=== PATIENT | female | born 1965 | race Caucasian/White ===

== ENCOUNTER 2017-04-12 07:42 | Day surgery (SDC) | payer OTHER ==
[~2017-04-12 07:42] MED LIST: BACT800T5 PO; HYDR-3533 PO; PRED-503 PO; RANI150T PO; SULF500T3 PO; ULTR50TA5 PO; VENTAER INH
[2017-04-12 10:01] VITALS: BP 146/76; PULSE 61; RESP 16; TEMP 97.6; O2SAT 100
[2017-04-12 10:50] VITALS: BP 147/99; PULSE 83; RESP 16; RESP 18; TEMP 97.6; O2SAT 94
--- NOTE | 2017-04-12 10:50 | RADRPT ---
EXAM DATE/TIME: 04/12/2017 09:54 [facility] COMPARISON: CHEST EXPIRATION ONLY, April 12, 2017, 10:28. INDICATIONS : Left pleural effusion. MEDICAL HISTORY : Rheumatoid arthritis. Asthma. COPD. Carpal tunnel syndrome. Fibromyalgia. Plantar fasciitis. Neurop athy. SURGICAL HISTORY : Tonsillectomy. Appendectomy. Breast biopsy, right. Uterine biopsy. ENCOUNTER: Initial ACUITY: 2 weeks PAIN SCORE: 3/10 LOCATION: Left chest FLUID: Total volume of 1400 cc of cloudy, yellow fluid was removed. Fluid was sent to lab for ordered studies. TECHNIQUE: 1. Ultrasound guidance for thoracentesis. 2. Thoracentesis. The risks, benefits, and alternatives to ultrasound guided thoracentesis were explained to the patien t in lay simple terms, including the risk of bleeding and infection. Written and verbal informed con sent was obtained. Appropriate area for thoracentesis was marked under ultrasound guidance with the patient in the uprig ht position. Overlying skin was prepped and draped in the usual sterile fashion and with local anest hetic, a dermatotomy was made with an 11 blade scalpel. A 6 Irish thoracentesis catheter was placed in the pleural space and fluid was removed. Catheter was then removed and a sterile dressing applie d. There were no immediate complications. The patient tolerated the procedure well and the left the ultrasound suite in stable condition. Chest radiograph is to be obtained. CONCLUSION: Uncomplicated ultrasound guided thoracentesis. Oseas Puente MD on April 12, 2017 at 10:48 Board Certified Radiologist. This report was verified electronically.
[2017-04-12] MEDS ORDERED: LIDOCAINE HCL 1% 20 ML VIAL ONE (11:03)
--- NOTE | 2017-04-12 11:04 | RADRPT ---
EXAM DATE/TIME: 04/12/2017 10:28 [facility] COMPARISON: No previous studies available for comparison. INDICATIONS : Status post thoracentesis. Left pleural effusion. MEDICAL HISTORY : None. SURGICAL HISTORY : None. ENCOUNTER: Initial ACUITY: 1 day PAIN SCORE: 10/10 LOCATION: Left chest FINDINGS: Upright portable expiratory view of the chest demonstrates no pneumothorax following recent left thor acentesis. There is minimal blunting of the left costophrenic sulcus with atelectasis the left lung b ase. Right lung is clear. CONCLUSION: No pneumothorax following recent left thoracentesis. There is minimal atelectasis remaining in the le ft base with possible trace pleural fluid remaining. Km Ramirez MD on April 12, 2017 at 11:01 Board Certified Radiologist. This report was verified electronically.
[2017-04-12 11:15] VITALS: BP 136/72; PULSE 83; RESP 16; O2SAT 94
[2017-04-12] MEDS ORDERED: traMADol HCL 50 MG TAB PO ONE (11:15)
[2017-04-12 12:00] LABS: GLUCOSE,PLEURAL FLUID LESS THAN 1 MG/DL
[2017-04-12 12:07] LABS: PLEURAL FLUID LYMPHS 48 %
[2017-04-12 12:09] LABS: TOTAL PROTEIN,PLEURAL FLUID 5.4 GM/DL
[2017-05-13] MEDS ORDERED: CETI10CA3 PO (11:23)
[2017-05-13] MEDS ORDERED: ACET-822 PO (11:23)
[2017-05-13] MEDS ORDERED: DULE100A INH (11:23)
[2017-05-13] MEDS ORDERED: IBUP800T23 PO (11:23)
== END 2017-04-12 11:40 | disposition home or self-care (01) ==
LOC: HRAD 07:42 → HRIP 07:52 → HRAD 11:40
PROVIDERS: ATTEND Family Medicine
DX: J90 Pleural effusion, not elsewhere classified (principal); M06.9 Rheumatoid arthritis, unspecified; J44.9 Chronic obstructive pulmonary disease, unspecified; G56.00 Carpal tunnel syndrome, unspecified upper limb; M79.7 Fibromyalgia; M72.2 Plantar fascial fibromatosis; G62.9 Polyneuropathy, unspecified
CPT/HCPCS: 32555; 71010; 82150; 82945; 83615; 83986; 84157; 87015; 87070; 87102; 87116; 87205; 87206; 89051; C1729

== ENCOUNTER → 2017-05-13 | Outpatient (CLI) | payer OTHER ==
[~2017-05-13] MED LIST changes: +ACET-822 PO; +CETI10CA3 PO; +DULE100A INH; +IBUP800T23 PO
[2017-05-13 12:14] LABS: AUTOMATED NEUTROPHIL # 6.4 TH/MM3 (1.8-7.7); BASOPHIL # 0.1 TH/MM3 (0-0.2); BASOPHIL % 0.7 % (0.0-2.0); EOSINOPHIL # 0.5 TH/MM3 (0-0.4); HEMATOCRIT 39.5 % (35.0-46.0); HEMO FLAGS DIFF FINAL; LYMPH % 27.1 % (9.0-44.0); LYMPHOCYTE # 2.8 TH/MM3 (1.0-4.8); MEAN CELL VOLUME 88.7 FL (80.0-100.0); MEAN CORPUSCULAR HEMOGLOBIN 29.3 PG (27.0-34.0); MONO % 5.2 % (0.0-8.0); PLATELET COUNT 414 TH/MM3 (150-450); RED BLOOD COUNT 4.45 MIL/MM3 (4.00-5.30); RED CELL DISTRIBUTION WIDTH 13.8 % (11.6-17.2); WHITE BLOOD COUNT 10.3 TH/MM3 (4.0-11.0)
[2017-05-13 12:19] LABS: GLUCOSE,URINE NEG (NEG); KETONE, URINE NEG (NEG); NITRITE,URINE NEG (NEG); PH, URINE 5.5 (5.0-8.5)
[2017-05-13 12:21] LABS: CHLORIDE 107 MEQ/L (98-107); POTASSIUM 4.5 MEQ/L (3.5-5.1); SODIUM (NA) 139 MEQ/L (136-145)
[2017-05-13 12:24] LABS: ANION GAP 6 MEQ/L (5-15); BICARBONATE 26.2 MEQ/L (21.0-32.0); BLOOD UREA NITROGEN 14 MG/DL (7-18)
[2017-05-13 12:27] LABS: ALT (GPT) 26 U/L (10-53); AST (GOT) 12 U/L (15-37)
[2017-05-13 12:28] LABS: GLOMERULAR FILTRATION RATE 75 ML/MIN (>89)
[2017-05-13 12:29] LABS: TOTAL BILIRUBIN ADULT 0.3 MG/DL (0.2-1.0)
[2017-05-13 12:30] LABS: ALKALINE PHOSPHATASE 64 U/L (45-117)
[2017-05-13 12:40] LABS: BLOOD, URINE TRACE (NEG)
[2017-05-13 12:43] LABS: METHOD OF COLLECTION CLEAN CATCH
[2017-05-13 12:44] LABS: URINE COLOR STRAW (YELLW/STRAW)
[2017-05-13 12:45] LABS: COMMENT (UR) CULT NOT INDICATED; CULTURE IF INDICATED CULT NOT INDICATED; SQUAMOUS EPITHELIAL CELL URINE 0-3 /hpf (0-5)
== END ==
LOC: PHPRE 10:50
PROVIDERS: ATTEND Obstetrics & Gynecology
DX: N92.0 Excessive and frequent menstruation with regular cycle (principal); N94.19 Other specified dyspareunia; N95.8 Other specified menopausal and perimenopausal disorders; N81.6 Rectocele; N81.5 Vaginal enterocele; N81.11 Cystocele, midline; N39.3 Stress incontinence (female) (male); Z01.812 Encounter for preprocedural laboratory examination
CPT/HCPCS: 36415; 80053; 81001; 85025; 86850; 86900; 86901; 86920

== ENCOUNTER 2017-06-12 11:24 | Day surgery (SDC) | payer OTHER ==
[~2017-06-12 11:24] MED LIST changes: -BACT800T5 PO; -HYDR-3533 PO; -PRED-503 PO; -SULF500T3 PO; -ULTR50TA5 PO
[2017-06-12 13:00] VITALS: BP 117/80; PULSE 89; RESP 20; TEMP 98.7; O2SAT 100
[2017-06-12 13:40] VITALS: BP 116/76; PULSE 82; RESP 14; TEMP 97.2; O2SAT 98
--- NOTE | 2017-06-12 13:56 | RADRPT ---
EXAM DATE/TIME: 06/12/2017 13:28 [facility] COMPARISON: CHEST EXPIRATION ONLY, April 12, 2017, 10:28. INDICATIONS : Post left thoracentesis. MEDICAL HISTORY : None. SURGICAL HISTORY : None. ENCOUNTER: Initial ACUITY: 1 day PAIN SCORE: 0/10 LOCATION: Left chest FINDINGS: Expiratory view of the chest demonstrates no evidence of left pneumothorax. There has been a decreas e in the amount of opacity at the left lower chest with small residual meniscal interface.. The righ t lung is clear print heart is normal size. CONCLUSION: No evidence of pneumothorax status post thoracentesis. Jeyson Hernandez MD on June 12, 2017 at 13:38 Board Certified Radiologist. This report was verified electronically.
[2017-06-12 14:00] VITALS: BP 104/70; PULSE 78; RESP 16; O2SAT 98
[2017-06-12] MEDS ORDERED: LIDOCAINE HCL 1% 20 ML VIAL ONE (14:05)
--- NOTE | 2017-06-12 14:07 | RADRPT ---
EXAM DATE/TIME: 06/12/2017 12:59 [facility] COMPARISON: EXTERNAL COMPARISON: US GUIDED THORACENTESIS LEFT, April 12, 2017, 9:54. [facility], XR CHEST PA & LAT, May 14 2017, CT THORAX, W & W/O CONTRAST, April 10, 2017. INDICATIONS : Left pleural effusion. MEDICAL HISTORY : Asthma. Rheumatiod arthritis. Bursitis, left shoulder. MRSA, back wound 2014. Uterine prolapse. Pleur al effusion. SURGICAL HISTORY : Tonsillectomy. Appendectomy. Carpal tunnel release, right wrist. Dilation and curettage. Thoracentes is. ENCOUNTER: Subsequent ACUITY: 2 months PAIN SCORE: 0/10 LOCATION: Left chest FLUID: Total volume of 500 cc of cloudy, yellow fluid was removed. Fluid was sent to lab for ordered studies. TECHNIQUE: 1. Ultrasound guidance for thoracentesis. 2. Thoracentesis. The risks, benefits, and alternatives to ultrasound guided thoracentesis were explained to the patien t in lay simple terms, including the risk of bleeding and infection. Written and verbal informed con sent was obtained. Appropriate area for thoracentesis was marked under ultrasound guidance with the patient in the uprig ht position. Overlying skin was prepped and draped in the usual sterile fashion and with local anest hetic, a dermatotomy was made with an 11 blade scalpel. A 6 Syriac thoracentesis catheter was placed in the pleural space and fluid was removed. Catheter was then removed and a sterile dressing applie d. There were no immediate complications. The patient tolerated the procedure well and the left the ultrasound suite in stable condition. Chest radiograph is to be obtained. CONCLUSION: Uncomplicated ultrasound guided thoracentesis. Oseas Puente MD on June 12, 2017 at 14:06 Board Certified Radiologist. This report was verified electronically.
[2017-06-12 16:17] LABS: TOTAL PROTEIN,PLEURAL FLUID 5.1 GM/DL
[2017-06-12 17:59] LABS: PLEURAL FLUID LYMPHS 33 %; PLEURAL FLUID MONOS 26 %; PLEURAL FLUID POLYS (SEGS) 41 %
[2017-06-12 18:28] LABS: PLEURAL FLUID RBC 530 /MM3 (0-0); PLEURAL FLUID WBC 1208 /MM3 (0-10)
--- NOTE | 2017-06-13 09:33 | MH ---
cc: Shar CARRERO M.D., JAMES E. MD DATE OF ADMISSION: 06/12/2017 DATE OF 1965 REASON FOR ADMISSION This patient is coming in for thoracentesis. CHIEF COMPLAINT Shortness of breath and recurrent pleural effusion. HISTORY OF PRESENT ILLNESS This is a 52-year-old white female who has had a history of shortness of breath, orthopnea and chest tightness who was admitted to the hospital 2 months ago with respiratory insufficiency and a large left pleural effusion. The patient underwent an ultrasound-guided thoracentesis on April 12, 2017 and over 1200 cc of fluid was drained and the fluid was sent for cytology which was benign and the cultures were negative for bacteria, AFB or fungi. The fluid also showed 9000 WBCs and glucose was low and LDH at 10:51 with a total protein of 5.4 suggesting it to be an exudate. The patient has had rheumatoid arthritis in the past and she denied any history of pneumonia. She did have an occasional cough and brought up whitish mucus. PAST HISTORY Has included history of rheumatoid arthritis. She has had a hysterectomy as well as a splenectomy in the past and a D&C. She had a tonsillectomy in 1971, bilateral hernia repairs in the past and also has had asthma since childhood. The patient has had a previous CAT scan which showed evidence of left upper lobe and right lung nodules. ALLERGIES No drug allergies. HABITS The patient smoked one-pack per day for 30 years and quit. Drinks alcohol rarely. MEDICATIONS LIST 1. Zyrtec 1 tablet daily. 2. Dulera 100/5 2 puffs b.i.d. 3. Ventolin 2 puffs p.r.n. 4. Zantac 150 milligrams b.i.d. FAMILY HISTORY Father had COPD. Mother of cirrhosis of the liver. REVIEW OF SYSTEMS The patient has no fatigue or fever. She has had no cataracts or glaucoma. No vertigo, but has some hoarseness and postnasal drip. She has no urinary frequency or flank pain. She does have a history of asthma, hay fever and reflux as well as abdominal discomfort. No constipation or GI bleed noted. No chest or jaw pains and she has no easy bruising. She has had muscle stiffness and joint pains. No seizures or headaches and no skin rash, no itching. PHYSICAL EXAMINATION GENERAL: This averagely built middle-aged white female who is in no distress. Mild pallor, no icterus or cyanosis or peripheral edema. VITAL SIGNS: Blood pressure 140/80, pulse is 70, respirations 16, temperature 97.2, weight is 158, saturation 99. HEENT: Head normocephalic. Pupils are reactive and equal. Tongue is moist. Nasal mucosa erythematous. Throat is mildly injected. NECK: Supple. No bruits. No thyroid enlargement or lymphadenopathy. CHEST: Equal movements with decreased breath sounds at the bases. Wheezes are scattered bilaterally, prolonged expirations. HEART: The heart sounds are irregular S1-S2. No murmur. ABDOMEN: Abdomen is soft, benign. No masses. EXTREMITIES: Reveal no edema. The reflexes are brisk. There were no gross motor deficits. Cranial nerves grossly intact. RECTAL: Exam is deferred. IMPRESSION 1. Recurrent left pleural effusion. 2. Left basilar atelectasis. 3. History of rheumatoid arthritis. 4. Anxiety. PLAN The patient has been advised to come in for a thoracentesis. Fluid will be sent for cytology, RA factor and CEA level. We will get a followup CT scan to see if there is any change in the nodular size and if there is recurrence of the fluid or change in the size of the nodules a VATS lung biopsy and pleurodesis will be required. I discussed these thoughts with her and will follow the case. Thank you Dr. Flores for this consultation. Km Carrero MD JDIMA/SHENA /10:47 PM /9:29 AM
[2017-06-14 15:59] LABS: AMYLASE BODY FLUID 18 U/L; AMYLASE BODY FLUID TYPE PLEURAL FLUID
== END 2017-06-12 14:30 | disposition home or self-care (01) ==
LOC: HRAD 11:24 → HRIP 11:30 → HRAD 14:30
DX: J90 Pleural effusion, not elsewhere classified (principal); J45.909 Unspecified asthma, uncomplicated; M06.9 Rheumatoid arthritis, unspecified
CPT/HCPCS: 32555; 71010; 82150; 82945; 83615; 83986; 84157; 87015; 87070; 87102; 87116; 87205; 87206; 89051; C1729

== ENCOUNTER → 2017-08-20 | Outpatient (CLI) | payer OTHER ==
[~2017-08-20] MED LIST changes: +ALPR.25 PO; +IBUP1TAB7 PO; -IBUP800T23 PO
[2017-08-20 09:29] LABS: AUTOMATED NEUTROPHIL # 6.2 TH/MM3 (1.8-7.7); BASOPHIL # 0.1 TH/MM3 (0-0.2); BASOPHIL % 0.8 % (0.0-2.0); EOSINOPHIL # 0.1 TH/MM3 (0-0.4); EOSINOPHIL % 1.4 % (0.0-4.0); HEMATOCRIT 38.2 % (35.0-46.0); HEMOGLOBIN 12.6 GM/DL (11.6-15.3); LYMPH % 28.9 % (9.0-44.0); MEAN CORPUSCULAR HEMOGLOBIN 29.7 PG (27.0-34.0); MEAN PLATELET VOLUME 7.1 FL (7.0-11.0); MONO % 8.2 % (0.0-8.0); MONOCYTE # 0.8 TH/MM3 (0-0.9); NEUT % 60.7 % (16.0-70.0); PLATELET COUNT 479 TH/MM3 (150-450); RED BLOOD COUNT 4.24 MIL/MM3 (4.00-5.30); RED CELL DISTRIBUTION WIDTH 14.8 % (11.6-17.2); WHITE BLOOD COUNT 10.2 TH/MM3 (4.0-11.0)
[2017-08-20 09:59] LABS: BILIRUBIN, URINE NEG (NEG); BLOOD, URINE NEG (NEG); GLUCOSE,URINE NEG (NEG); KETONE, URINE NEG (NEG); NITRITE,URINE NEG (NEG); URINE LEUKOCYTE ESTERASE NEG (NEG)
[2017-08-20 10:01] LABS: URINE COLOR STRAW (YELLW/STRAW)
[2017-08-20 10:05] LABS: AMORPHOUS SEDIMENT, URINE LARGE; SQUAMOUS EPITHELIAL CELL URINE > 8 /hpf (0-5)
== END ==
LOC: PHPRE 08:38
PROVIDERS: ATTEND Obstetrics & Gynecology
DX: Z01.812 Encounter for preprocedural laboratory examination (principal); N92.0 Excessive and frequent menstruation with regular cycle; N94.19 Other specified dyspareunia; N95.8 Other specified menopausal and perimenopausal disorders; N81.6 Rectocele; N81.5 Vaginal enterocele; N81.11 Cystocele, midline; N39.3 Stress incontinence (female) (male)
CPT/HCPCS: 36415; 81001; 85025; 86850; 86900; 86901; 86920

== ENCOUNTER 2017-08-21 06:11 | Observation (INO) | payer OTHER ==
[~2017-08-21] VITALS: Ht 152.4 cm; Wt 80.0 kg
[~2017-08-21 06:11] MED LIST changes: -ALPR.25 PO
[2017-08-21] MEDS ORDERED: ceFAZolin 2 GM PREMIX 50 ML IV SCH (06:45)
[2017-08-21] MEDS ORDERED: ALPR.25 PO (06:53)
[2017-08-21] MEDS ORDERED: LACTATED RINGER'S 1000 ML INJ 1,000 ML ONE (07:05)
[2017-08-21] MEDS ORDERED: MIDAZOLAM HCL 2 MG/2 ML VIAL ONE (07:08)
[2017-08-21] MEDS ORDERED: HYDROCORTISONE SOD SUCCINATE 100 MG VIAL ONE (07:10)
[2017-08-21] MEDS ORDERED: ESTROGENS CONJUGATED VAG CREA 15 APPL/30 GM TUBE ONE ×2 (07:12→11:53)
[2017-08-21 07:29] LABS: CHLORIDE 107 MEQ/L (98-107); SODIUM (NA) 141 MEQ/L (136-145)
[2017-08-21 07:33] LABS: ALBUMIN 3.2 GM/DL (3.4-5.0); BICARBONATE 25.2 MEQ/L (21.0-32.0); BLOOD UREA NITROGEN 16 MG/DL (7-18); GLUCOSE,RANDOM 80 MG/DL (74-106)
[2017-08-21 07:36] LABS: ALT (GPT) 22 U/L (10-53); AST (GOT) 18 U/L (15-37); CREATININE 0.81 MG/DL (0.50-1.00); GLOMERULAR FILTRATION RATE 75 ML/MIN (>89)
[2017-08-21 07:38] LABS: TOTAL BILIRUBIN ADULT 0.3 MG/DL (0.2-1.0); TOTAL PROTEIN 7.2 GM/DL (6.4-8.2)
[2017-08-21 07:39] LABS: ALKALINE PHOSPHATASE 53 U/L (45-117)
[2017-08-21] MEDS ORDERED: VASOPRESSIN 20 UNITS/ML VIAL (IVTITR) ONE (08:00)
[2017-08-21] MEDS ORDERED: METHYLENE BLUE 10 MG/ML VIAL OTHER ONE (09:18)
[2017-08-21] MEDS ORDERED: ceFAZolin INJ 1,000 MG VIAL IV ONE (11:36)
[2017-08-21 12:13] VITALS: PULSE 107
[2017-08-21] MEDS ORDERED: MORPHINE SULFATE 30 MG/30 ML PCA IV SCH (12:15)
[2017-08-21] MEDS ORDERED: diphenhydrAMINE HCL 25 MG CAP PO PRN (12:15)
[2017-08-21] MEDS ORDERED: LORazepam 0.5 MG TAB PO PRN (12:15)
[2017-08-21] MEDS ORDERED: NALOXONE HCL 0.4 MG/ML AMP IV PUSH PRN (12:15)
[2017-08-21] MEDS ORDERED: *MEPERIDINE 25 MG INJ VIAL PERIprocedural Use ONLY ONE (12:30)
--- NOTE | 2017-08-21 12:44 | HHI.PR ---
Immediate Post Op Note Procedure Date: Aug 21, 2017 Pre Op Diagnosis: (1) Complete uterovaginal prolapse (2) MAXWELL (stress urinary incontinence, female) Post Op Diagnosis: (1) Complete uterovaginal prolapse (2) MAXWELL (stress urinary incontinence, female) Surgeon: Kina Rsoe Fire Hazard Inspector(s): Nikhil Cevallos Procedure: Total vaginal hysterectomy with bilateral salpingo-oophorectomy Placement of transobturator tape (mid-urethral sling) and cystoscopy Bilateral sacrocolpopexy cystocele repair, rectocele repair and perineoplasty Specimen(s) removed: uterus tubes and ovaries Estimated blood loss: 400 cc Anesthesia: General, Other Drains: None IVF Patient to: PACU Date/Time of Procedure: SEE SURGICAL CARE RECORD Kina Rose MD Aug 21, 2017 12:44
[2017-08-21] MEDS ORDERED: MORPHINE SULFATE 2 MG/ML INJ ONE (12:58)
[2017-08-21] MEDS ORDERED: *HYDROmorphone PF 1 MG VIAL PERIprocedural Use ONLY ONE (13:38)
[2017-08-21 14:00] VITALS: PULSE 94
[2017-08-21] MEDS: PCA - TOTAL MG MORPHINE DELIVERED PER SHIFT SCH ×2 (14:00→22:30)
[2017-08-21 14:50] VITALS: BP 101/59; PULSE 99; RESP 16; TEMP 98; O2SAT 99
[2017-08-21] MEDS: LACTATED RINGER'S 1000 ML INJ 1,000 ML IV SCH ×2 (15:07→20:15)
[2017-08-21] MEDS: DOCUSATE SODIUM 100 MG CAP PO SCH ×2 (15:12→21:00)
[2017-08-21 16:05] VITALS: O2SAT 99
[2017-08-21 20:00] VITALS: BP 104/73; PULSE 92; RESP 20; TEMP 99.4; O2SAT 99
[2017-08-21 20:40] VITALS: O2SAT 98
[2017-08-21] MEDS: SODIUM CHLORIDE 0.9% FLUSH 10 ML FLUSH IV FLUSH SCH (21:00)
[2017-08-21] MEDS: KETOROLAC TROMETHAMINE 30 MG/ML (IVP) VIAL IVP PRN (22:28)
[2017-08-22] VITALS: BP 101/57; PULSE 68; RESP 20; TEMP 99.1; O2SAT 100
[2017-08-22] MEDS: LACTATED RINGER'S 1000 ML INJ 1,000 ML IV SCH ×3 (01:21→12:15)
[2017-08-22 04:00] VITALS: BP 103/67; PULSE 77; RESP 20; TEMP 97.9; O2SAT 96
[2017-08-22] MEDS: KETOROLAC TROMETHAMINE 30 MG/ML (IVP) VIAL IVP PRN (04:19)
[2017-08-22] MEDS: PCA - TOTAL MG MORPHINE DELIVERED PER SHIFT SCH (06:00)
[2017-08-22 06:38] LABS: HEMATOCRIT 24.9 % (35.0-46.0); HEMOGLOBIN 8.1 GM/DL (11.6-15.3)
[2017-08-22 07:50] VITALS: BP 106/60; PULSE 86; RESP 20; TEMP 98.6; O2SAT 97
[2017-08-22] MEDS: DOCUSATE SODIUM 100 MG CAP PO SCH (09:09)
[2017-08-22] MEDS: SODIUM CHLORIDE 0.9% FLUSH 10 ML FLUSH IV FLUSH SCH (09:10)
[2017-08-22] MEDS: oxyCODONE/ACETAMINOPHEN 5 MG/325 MG TAB PO PRN ×2 (10:37→14:58)
[2017-08-22 11:50] VITALS: BP 108/60; PULSE 93; RESP 20; TEMP 98.3; O2SAT 97
--- NOTE | 2017-08-22 14:24 | HHI.DS ---
Discharge Summary Admission Date Aug 21, 2017 at 14:34 Discharge Date: Aug 22, 2017 Admitting Diagnosis complete uterovaginal prolapse, menorrhagia, cystocele, rectocele, enterocele and perineocele on replacement of uterus female stress urinary incontinence rheumatoid arthritis (1) Complete uterovaginal prolapse Diagnosis: Principal ICD Codes: N81.3 - Complete uterovaginal prolapse Status: Resolved (2) Urinary retention with incomplete bladder emptying Diagnosis: Secondary ICD Codes: R33.9 - Retention of urine, unspecified Status: Acute Procedures Total vaginal hysterectomy Bilateral salpingo-oophorectomy bilateral sacrocolpopexy Placement of mid-urethral sling, transobturator tape Repair of cystocele, rectocele, perineocele (without graft) Brief History 52 y/o had complete uterovaginal prolapse on presentation. She wanted surgery sooner but had untreated rheumatoid arthritis and had recurring pleural effusion and required time to be cleared for surgery. She had heavy and irregular uterine bleeding, and needed to replace her uterus manually to void or evacuate bowels. The patient wanted to maintain sexual function and so chose vaginal reconstruction procedures, and opted for a vaginal approach including hysterectomy. CBC/BMP: 08/22/17 0601 08/21/17 0705 Significant Findings Laboratory Tests Test 08/21/17 07:05 08/22/17 06:01 Albumin 3.2 GM/DL (3.4-5.0) Estimat Glomerular Filtration Rate 75 ML/MIN (>89) Hemoglobin 8.1 GM/DL (11.6-15.3) Hematocrit 24.9 % (35.0-46.0) PE at Discharge Vital signs are stable. Abdomen is soft. Patient did not bleed through her packing despite multiple vaginal incisions, and there was no significant bleeding after I removed the packing. She is ambulatory with abdomen soft. Hospital Course The patient's surgery took over 4 hours, as anticipated considering the number of different procedures. She had a 400 cc blood loss. A sling was used but graft was not used for rectocele repair because the rectocele was largely reduced with sacrocolpopexy and perineoplasty. The patient did well after surgery and was able to ambulate and tolerate a regular diet. She was voiding normal amounts of urine, but had consistently high residuals by bladder scan, over 300cc. She was offered teaching and intermittent catheterization, but preferred to go home with a in-dwelling Guy catheter. Pt Condition on Discharge: Good Discharge Disposition: Discharge Home Discharge Instructions DIET: Follow Instructions for: As Tolerated, No Restrictions Activities you can perform: Shower Only-No Bath, Pelvic Rest Activities to avoid: Driving for 24 hrs, Lifting/Bending, Weight Bearing, Prolonged Standing, Strenuous Activity, Bathing, Sexual Activity Additional Information The patient already has a post-op appointment for one week post-op. Since she is going home with an in-dwelling Guy, we will call her to offer an additional appointment on Saturday to evaluate for catheter removal. The patient already has post-op meds at home, and has been instructed in activity and how to best avoid constipation. Kina Rose MD Aug 22, 2017 14:24
[2017-08-22 15:50] VITALS: BP 110/59; PULSE 90; RESP 20; TEMP 98.3; O2SAT 94
--- NOTE | 2017-08-23 10:29 | MP ---
cc: DUTCH NG MD SURGERY DATE August 21, 2017 PREOPERATIVE DIAGNOSES 1. Complete uterovaginal prolapse. 2. Stress urinary incontinence. 3. Rectocele, enterocele, cystocele. 4. Menorrhagia. POSTOPERATIVE DIAGNOSES 1. Complete uterovaginal prolapse. 2. Stress urinary incontinence. 3. Rectocele, enterocele, cystocele. 4. Menorrhagia. OPERATION 1. Total vaginal hysterectomy, bilateral salpingo-oophorectomy. 2. Placement in midurethral sling using transobturator tape. 3. Repair of cystocele, rectocele and enterocele without graft. 4. Bilateral sacrocolpopexy extraperitoneal. SURGEON MD Rose ANESTHESIA General endotracheal. COMPLICATIONS None. ESTIMATED BLOOD LOSS 400 cc. URINE OUTPUT 900. LENGTH OF SURGERY Approximately 4-1/2 hours. INDICATIONS This 52-year-old 5, para 5 came with complete uterovaginal prolapse which has tolerated for some months. She has to replace her uterus in order to void or evacuate her bowels and is extremely uncomfortable. When she does replace her uterus she has stress urinary incontinence which is easily illustrated on maneuvers. The patient requests the procedure listed above after a lengthy discussion about the possible use of allograft and the length of surgery. Initially of surgery was postponed because of recurrent pleural effusion, breast biopsy and untreated rheumatoid arthritis. FINDINGS The patient was found to have a normal-sized uterus with complete uterovaginal prolapse and the majority of the bladder being located outside of the body as well as the rectum and some of the small bowel. It was palpable through the defect. The patient's tubes and ovaries were small and had descended somewhat with the prolapse. The patient had very vascular submucosal tissue with pelvic congestion and, even though vasopressin was used, she had pretty steady blood loss. Compression of bleeders was used several times during the case. PROCEDURE The patient was taken to the operating room and placed supine on the operating room table. After general endotracheal anesthetic, she was prepped and draped in low stirrups with SCDs in place. Weighted vaginal speculum was placed in the posterior vault of the vagina thus reducing some of the prolapse. However, after making a circumferential incision around the cervix and pushing the tissues back, dilute Pitressin was used at the incision site. The rectovaginal space was entered sharply and the retractor was replaced for a long retractor. The uterosacral ligaments were identified, clamped and pedicles cut and suture ligatures placed. The cardinal ligaments were then identified, clamped, pedicles cut and suture ligatures placed. Another bite was necessary on each side before reaching the uteroovarian ligament. This was then doubly clamped on each side using a Vicky clamp and a Janee clamp and using a free tie and then a suture ligature. Despite this, hematoma formation was noted on the patient's left side and compression with a sponge stick was applied before it had a chance to extend beyond the pelvis. It was hemostatic and we then continued. The uterus had been from the field and adnexal ligatures placed except that the patient also wanted bilateral salpingo-oophorectomy if possible. The structures were visible. The bowel was protruding from the large vaginal defect and a packing was necessary in order to continue surgery. A Vicky clamp was placed across the left infundibulopelvic ligament and a Janee clamp as well. The adnexa was cut away and a free tie followed by a suture ligature were placed. The same procedure was carried out on the other side. Then, observing the patient's large enterocele, it was determined that the best support and elimination of the large defect would be to tie together the uterosacral ligaments and the cardinal ligaments which met easily in the midline. Of course this left the vaginal apex somewhat pendulous and a sacral colpopexy was done as planned. The sacral colpopexy was done by injecting laterally in the right vaginal sulcus overlying the palpable ischial spine. Minimal blunt dissection was used to palpate the sacrospinous ligament bundle but the patient did again developed easily subperitoneal bruising from gentle dissection. A Fanaticsio device was used to place two ligatures through the sacrospinous bundle using 0 Prolene. They were then tied to the vagina in the right apex using a lili stitch method with good result except that the proximal suture pulled out of the vaginal tissue which was soft. The effect on the right side was good but the left side was still very prolapsed and therefore the same procedure was carried out on the left side taking great care to palpate for the colon and other essential structures and identifying the ischial spine and the sacrospinous bundle with direct visualization. The defects in the sulci were then used with incisions bridging the two in order to take up slack in the apex of the vagina and help eliminate the rectocele. It was closed vertically to pull the sides together so the vagina achieved a conical shape. The vaginal cuff was then closed in running locked fashion. 0 Vicryl was used throughout the case up to this point. A perineocele was going to be required but transobturator tape had yet to be placed. A vertical incision was made over the midportion of the urethra and submucosally was dissected to the pubic rami bilaterally. Stab incisions were made in the groin avoiding the adductor muscles and being parallel to the urethra. A blunt needle device was then used to go from outside the patient to the inside through the vagina and a mesh tape was pulled through the groin incisions bilaterally. Again removing a vertical piece of tissue overlying the mid-urethra and bladder neck allowed vertical closure thus eliminating her cystocele and rectocele without use of graft. Attention was then turned to the perineoplasty and knife was used to make a marc-shaped excision of mucosa and perineal epidermis after injection of the remaining dilute vasopressin. The bulbocavernosus and transverse perinei and muscles and other structures involved in the perineal body which was very attenuated were palpated bilaterally and grasped with Allis clamps and then united in the midline. The epithelium and the mucosa was closed over this incision and at the end of the case the patient's vagina accommodated two fingers loosely as we had discussed prior to surgery. The patient then had packing placed in the vagina with estrogen cream. A Guy catheter had been clamped during the case but was reconnected at the end of the case and clear yellow urine returned. Cystoscopy was performed at that time when the Guy catheter was temporarily removed and there was no defect or perforation seen with urine seen to pass from the ureteral orifices bilaterally. The Guy catheter was replaced after the packing was placed. The patient was awakened and taken to the recovery room breathing on her own. She tolerated the procedure well. Sponge, needle and instrument counts were correct. She received 2 grams of Ancef preoperatively and the dose was repeated at the end of the case. MD GIL Gupta/TRAVIS /9:22 AM /9:41 AM
== END 2017-08-22 17:04 | disposition home or self-care (01) ==
LOC: PHSDC 06:11 → PH3A 14:34
PROVIDERS: ADMIT Obstetrics & Gynecology; ATTEND Obstetrics & Gynecology
DX: N81.3 Complete uterovaginal prolapse (principal); N92.0 Excessive and frequent menstruation with regular cycle; N81.81 Perineocele; N39.3 Stress incontinence (female) (male); R33.9 Retention of urine, unspecified
CPT/HCPCS: 00840; 00860; 36415; 56810; 57288; 58263; 80053; 85014; 85018; 88305; 94150; 96374; 96375; 96376; C1771; G0378; J0690; J1170; J1720; J1885; J2175; J2250; J2270; J7120; 88307

== ENCOUNTER 2018-03-23 21:19 | Observation (INO) ==
--- NOTE | 2018-03-23 22:05 | ED ---
HPI General Chief complaint: Chest Pain Stated complaint: chest pain Time Seen by Provider: 03/23/18 21:57 History of Present Illness HPI narrative: A 53-year-old female who presents for evaluation of chest pain. Symptoms have been intermittent for the past several months. She reports that typically she gets these symptoms approximately 5-6 times per week. She describes it as a sharp/achy substernal pain that radiates into the neck and jaw and arms. Symptoms are typically worse when she is upset or under stress. She does not seem to notice any exertional component in her symptoms. She developed the symptoms this evening when she was sitting on a bench at 6 PM and this is what prompted evaluation. Currently she reports only very mild discomfort. She denies any shortness of breath, abdominal pain, nausea or vomiting, diaphoresis, lower extremity edema, recent travel, recent surgery. She reports a history of rheumatoid arthritis and asthma. She endorses tobacco use. She denies any known history of coronary artery disease personally or in her family. She denies any history of hypertension, hyperlipidemia, diabetes. She has never had a stress test. Her primary care physician is Dr. Flores. No other complaints at this time. Related Data Home Medications Medication Instructions Recorded Confirmed Tylenol Arthritis Pain 650 PO Q12HR PRN 03/24/18 albuterol sulfate [Ventolin HFA] INHALATION 03/24/18 leflunomide 20 mg PO DAILY 03/24/18 03/24/18 Allergies Allergy/AdvReac Type Severity Reaction Status Date / Time cat dander Allergy Severe Shortness Verified 03/23/18 21:44 of Breath tree and shrub pollen Allergy Severe Shortness Verified 03/23/18 21:44 of Breath *MDRO Multi-Drug Resistant AdvReac Unknown Itching Uncoded 03/23/18 21:44 Organism Review of Systems Except as stated in HPI: all other systems reviewed are negative [facility] Medical History Medical History Asthma (Acute) History of hysterectomy (Acute) Family History Family History Other No history of heart disease Social History Social History Substance History: No History of Abuse Second Hand Smoke Exposure: Yes Smoking Status: Current every day smoker Tobacco Type: Cigarettes How Often Do You Have a Drink Containing Alcohol: Monthly or less Procedures Hemaprompt Stool Procedural Steps Taken: specimen placed in appropriate test area, developer placed on specimen and control areas and controls appropriately positive and negative Hemaprompt Stool Result: positive Course Initial Documented Vital Signs Temperature 98.3 F 03/23/18 21:44 Pulse Rate 81 03/23/18 21:44 Respiratory Rate 18 03/23/18 21:44 Blood Pressure 144/85 H 03/23/18 21:44 Pulse Oximetry 97 03/23/18 21:44 Last Documented Vital Signs Temperature 97.9 F 03/24/18 04:00 Pulse Rate 79 03/24/18 04:00 Respiratory Rate 16 03/24/18 04:00 Blood Pressure 141/93 H 03/24/18 04:00 Pulse Oximetry 94 L 03/24/18 04:00 Medical Decision Making BHARAT Attestation BHARAT supervised visit: Yes Attestation: I, Dr. Cardenas, have reviewed the advance practice practitioner's documentation and am in agreement, met with the patient face to face, made the diagnosis, and the medical decision making was done by me. *My assessment and Findings: Patient is a 53-year-old male who presented with atypical chest pain. EKG had nonspecific T-wave inversions and flattening but no acute ST elevations. Her troponin was elevated at 0.25. We spoke with the aromatherapist on-call who recommended the patient be placed on a heparin bolus and admitted to the hospital for her NSTEMI. Additionally she did complain of one episode of bright red blood per rectum approximately a week ago. Rectal exam here was guaiac positive but did not show any gross exam. The aromatherapist in the admitting hospitalist are both aware of this and plan to follow this closely with her new heparin drip. MDM Narrative Medical decision making narrative: The patient was placed on ECG monitoring pulse oximetry. A 12 EKG was obtained. Lab work, chest x-ray has been ordered. The patient was given aspirin. Patient's lab work is been reviewed. Her troponin is 0.25. Discussing with the patient's potential for anticoagulation, she reports that last week she had bright red blood per rectum. Rectal examination today does reveal Hemoccult positive brown stool. Discussed with the on-call [facility] aromatherapist Dr. Llamas who would like heparin to be initiated and she will be happy to consult, npo after midnight, repeat CBC in [address] Mcpherson who is agreeable with admission. Differential Diagnosis Differential Diagnosis: Acute coronary syndrome, aortic dissection, angina, pneumothorax, hemothorax, anxiety Lab Data Result diagrams: 03/24/18 04:41 03/23/18 22:10 Lab Results 03/23/18 03/23/18 03/23/18 Range/Units 22:10 22:10 22:10 WBC 10.0 (4.0-11.0) th/mm3 RBC 4.31 (4.00-5.30) mil/mm3 Hgb 12.2 (11.6-15.3) gm/dL Hct 36.1 (35.0-46.0) % MCV 83.9 (80.0-100.0) fL MCH 28.3 (27.0-34.0) pg MCHC 33.8 (32.0-36.0) % RDW 16.0 (11.6-17.2) % Plt Count 537 H (150-450) th/mm3 MPV 6.9 L (7.0-11.0) fL Neut % (Auto) 73.3 H (16.0-70.0) % Lymph % (Auto) 15.1 (9.0-44.0) % [place] % (Auto) 7.5 (0.0-8.0) % Eos % (Auto) 2.8 (0.0-4.0) % Baso % (Auto) 1.3 (0.0-2.0) % Neut # (Auto) 7.3 (1.8-7.7) th/mm3 Lymph # (Auto) 1.5 (1.0-4.8) th/mm3 [place] # (Auto) 0.8 (0.0-0.9) th/mm3 Eos # (Auto) 0.3 (0.0-0.4) th/mm3 Baso # (Auto) 0.1 (0.0-0.2) th/mm3 WBC Differential . Differential Comment Auto diff final PT 10.5 (9.8-11.6) sec INR 1.0 Ratio APTT 27.9 (24.3-30.1) sec Sodium 140 (136-145) meq/L Potassium 4.8 (3.5-5.1) meq/L Chloride 108 H (98-107) meq/L Carbon Dioxide 27.2 (21.0-32.0) meq/L Anion Gap 5 (5-15) meq/L BUN 12 (7-18) mg/dL Creatinine 1.06 H (0.50-1.00) mg/dL Estimated GFR 54 L (>89) mL/min Random Glucose 101 (74-106) mg/dL Calcium 8.9 (8.5-10.1) mg/dL Total Bilirubin 0.2 (0.2-1.0) mg/dL AST 28 (15-37) U/L ALT 24 (10-53) U/L Alkaline Phosphatase 87 (45-117) U/L Creatine Kinase Total Creatine Kinase (26-192) U/L CK-MM (CK-3) % CK-MB (CK-2) (0.5-3.6) ng/mL CK-MB (CK-2) % CK-BB (CK-1) % CK and CKMB Interp Troponin I 0.25 H (0.02-0.05) ng/mL Total Protein 7.9 (6.4-8.2) g/dL Albumin 3.4 (3.4-5.0) g/dL Lipase 59 L (73-393) U/L 03/23/18 03/23/18 03/24/18 Range/Units 22:10 22:10 04:41 WBC 9.5 (4.0-11.0) th/mm3 RBC 4.27 (4.00-5.30) mil/mm3 Hgb 12.0 (11.6-15.3) gm/dL Hct 36.0 (35.0-46.0) % MCV 84.3 (80.0-100.0) fL MCH 28.1 (27.0-34.0) pg MCHC 33.3 (32.0-36.0) % RDW 15.8 (11.6-17.2) % Plt Count 488 H (150-450) th/mm3 MPV 7.2 (7.0-11.0) fL Neut % (Auto) (16.0-70.0) % Lymph % (Auto) (9.0-44.0) % [place] % (Auto) (0.0-8.0) % Eos % (Auto) (0.0-4.0) % Baso % (Auto) (0.0-2.0) % Neut # (Auto) (1.8-7.7) th/mm3 Lymph # (Auto) (1.0-4.8) th/mm3 [place] # (Auto) (0.0-0.9) th/mm3 Eos # (Auto) (0.0-0.4) th/mm3 Baso # (Auto) (0.0-0.2) th/mm3 WBC Differential Differential Comment PT (9.8-11.6) sec INR Ratio APTT (24.3-30.1) sec Sodium (136-145) meq/L Potassium (3.5-5.1) meq/L Chloride (98-107) meq/L Carbon Dioxide (21.0-32.0) meq/L Anion Gap (5-15) meq/L BUN (7-18) mg/dL Creatinine (0.50-1.00) mg/dL Estimated GFR (>89) mL/min Random Glucose (74-106) mg/dL Calcium (8.5-10.1) mg/dL Total Bilirubin (0.2-1.0) mg/dL AST (15-37) U/L ALT (10-53) U/L Alkaline Phosphatase (45-117) U/L Creatine Kinase Cancelled Total Creatine Kinase 125 (26-192) U/L CK-MM (CK-3) % Cancelled CK-MB (CK-2) 1.9 (0.5-3.6) ng/mL CK-MB (CK-2) % Cancelled CK-BB (CK-1) % Cancelled CK and CKMB Interp Cancelled Troponin I (0.02-0.05) ng/mL Total Protein (6.4-8.2) g/dL Albumin (3.4-5.0) g/dL Lipase (73-393) U/L 03/24/18 03/24/18 Range/Units 04:41 04:41 WBC (4.0-11.0) th/mm3 RBC (4.00-5.30) mil/mm3 Hgb (11.6-15.3) gm/dL Hct (35.0-46.0) % MCV (80.0-100.0) fL MCH (27.0-34.0) pg MCHC (32.0-36.0) % RDW (11.6-17.2) % Plt Count (150-450) th/mm3 MPV (7.0-11.0) fL Neut % (Auto) (16.0-70.0) % Lymph % (Auto) (9.0-44.0) % [place] % (Auto) (0.0-8.0) % Eos % (Auto) (0.0-4.0) % Baso % (Auto) (0.0-2.0) % Neut # (Auto) (1.8-7.7) th/mm3 Lymph # (Auto) (1.0-4.8) th/mm3 [place] # (Auto) (0.0-0.9) th/mm3 Eos # (Auto) (0.0-0.4) th/mm3 Baso # (Auto) (0.0-0.2) th/mm3 WBC Differential Differential Comment PT (9.8-11.6) sec INR Ratio APTT 32.2 H (24.3-30.1) sec Sodium (136-145) meq/L Potassium (3.5-5.1) meq/L Chloride (98-107) meq/L Carbon Dioxide (21.0-32.0) meq/L Anion Gap (5-15) meq/L BUN (7-18) mg/dL Creatinine (0.50-1.00) mg/dL Estimated GFR (>89) mL/min Random Glucose (74-106) mg/dL Calcium (8.5-10.1) mg/dL Total Bilirubin (0.2-1.0) mg/dL AST (15-37) U/L ALT (10-53) U/L Alkaline Phosphatase (45-117) U/L Creatine Kinase Total Creatine Kinase 101 (26-192) U/L CK-MM (CK-3) % CK-MB (CK-2) (0.5-3.6) ng/mL CK-MB (CK-2) % CK-BB (CK-1) % CK and CKMB Interp Troponin I 0.50 H D (0.02-0.05) ng/mL Total Protein (6.4-8.2) g/dL Albumin (3.4-5.0) g/dL Lipase (73-393) U/L Imaging Data Radiologist's impression: Chest X-Ray 03/23/18 22:01 CONCLUSION: Very mild bibasilar atelectasis. Mild pleural and parenchymal scarring versus very small pleural effusion at the left base. Discharge Plan Discharge Disposition Patient Disposition: 30 Still Patient Discharge Condition Condition: Stable Discharge Details Diagnosis: Chest pain, Elevated troponin, Acute non-ST elevation myocardial infarction ( NSTEMI) Physicians Team ED Provider: Nae Cardenas ED Midlevel Provider: Grzegorz Vidal Primary Care Provider: Pepe Flores Attending Provider: Donta Pinon Status ED Status: Left Department Discharge Information Discharge Date/Time: 03/24/18 01:42
[2018-03-23 22:18] LABS: Baso # (Auto) 0.1 th/mm3 (0.0-0.2); Baso % (Auto) 1.3 % (0.0-2.0); Eos # (Auto) 0.3 th/mm3 (0.0-0.4); Eos % (Auto) 2.8 % (0.0-4.0); Hematocrit 36.1 % (35.0-46.0); Hemoglobin 12.2 gm/dL (11.6-15.3); Lymph # (Auto) 1.5 th/mm3 (1.0-4.8); Lymph % (Auto) 15.1 % (9.0-44.0); Mean Corpuscular HGB Conc 33.8 % (32.0-36.0); Mean Corpuscular Hemoglobin 28.3 pg (27.0-34.0); Mean Corpuscular Volume 83.9 fL (80.0-100.0); Mean Platelet Volume 6.9 fL (7.0-11.0); Mono # (Auto) 0.8 th/mm3 (0.0-0.9); Mono % (Auto) 7.5 % (0.0-8.0); Neut # (Auto) 7.3 th/mm3 (1.8-7.7); Neut % (Auto) 73.3 % (16.0-70.0); Platelet Count 537 th/mm3 (150-450); Red Blood Count 4.31 mil/mm3 (4.00-5.30)
--- NOTE | 2018-03-23 22:18 | XR ---
EXAM DATE: 03/23/2018 10:13 PM EDT AGE/SEX: 53 years / Female INDICATIONS: Bilateral chest pains. CLINICAL DATA: This is the patient's initial encounter. Patient reports that signs and symptoms have been present for 2 months and indicates a pain score of 4/10. MEDICAL/SURGICAL HISTORY: . Asthma. Rheumatiod arthritis. Bursitis, left shoulder. MRSA, back w ound 2015. Uterine prolapse. Pleural effusion. . Tonsillectomy. Appendectomy. Carpal tunnel release , right wrist. Dilation and curettage. Thoracentesis. COMPARISON: [facility], XR CHEST PA AND LAT, 05/14/2017. . FINDINGS: Trace bibasilar atelectasis. Pleural and parenchymal scarring versus very small effusion seen left ba se. No pleural effusion seen on the right. No pneumothorax on either side. Heart size stable, within normal limits. CONCLUSION: Very mild bibasilar atelectasis. Mild pleural and parenchymal scarring versus very small pleural effusion at the left base. Electronically signed by: Km Ulloa MD 03/23/2018 10:17 PM EDT
[2018-03-23 22:27] LABS: Activated Partial Thrombo Time 27.9 sec (24.3-30.1); Prothrombin Time 10.5 sec (9.8-11.6)
[2018-03-23 22:40] LABS: Alkaline Phosphatase 87 U/L (45-117); Total Protein 7.9 g/dL (6.4-8.2); Troponin I 0.25 ng/mL (0.02-0.05)
[2018-03-23 22:42] LABS: Alanine Aminotransferase 24 U/L (10-53); Albumin 3.4 g/dL (3.4-5.0); Anion Gap 5 meq/L (5-15); Aspartate Aminotransferase 28 U/L (15-37); Blood Urea Nitrogen 12 mg/dL (7-18); Calcium 8.9 mg/dL (8.5-10.1); Carbon Dioxide 27.2 meq/L (21.0-32.0); Chloride 108 meq/L (98-107); Glomerular Filtration Rate 54 mL/min (>89); Glucose,Random 101 mg/dL (74-106); Lipase 59 U/L (73-393); Potassium 4.8 meq/L (3.5-5.1); Sodium 140 meq/L (136-145)
[2018-03-23] MEDS ORDERED: Heparin 10,000 UNITS/10 ML Vial (for IV use) IV.PUSH STA ×2 (22:47→23:06)
[2018-03-23] MEDS ORDERED: Heparin Drip 25,000 UNIT/250 ML BAG IV.CONT PRN (22:47)
[2018-03-23] MEDS: Heparin Drip 25,000 UNIT/250 ML BAG IV.CONT PRN (23:26)
[2018-03-23 23:27] LABS: Creatine Kinase 125 U/L (26-192)
[2018-03-23 23:44] LABS: Creatine Kinase MB 1.9 ng/mL (0.5-3.6)
[2018-03-24 05:11] LABS: Mean Corpuscular HGB Conc 33.3 % (32.0-36.0); Mean Corpuscular Hemoglobin 28.1 pg (27.0-34.0); Mean Corpuscular Volume 84.3 fL (80.0-100.0); Mean Platelet Volume 7.2 fL (7.0-11.0); Platelet Count 488 th/mm3 (150-450); Red Blood Count 4.27 mil/mm3 (4.00-5.30); Red Cell Distribution Width 15.8 % (11.6-17.2); White Blood Count 9.5 th/mm3 (4.0-11.0)
[2018-03-24 05:46] LABS: Troponin I 0.5 ng/mL (0.02-0.05)
[2018-03-24] MEDS ORDERED: Acetaminophen 500 MG Tablet PO PRN (06:03)
--- NOTE | 2018-03-24 08:13 | P.CONCA ---
<Adolph Chapman - Last Filed: 03/24/18 08:27> History of Present Illness Primary Care Provider: Pepe Flores Family Provider: Pepe Flores History of Present Illness: 53-year-old female with past medical history of asthma, arthritis who presented with chest pain. The patient reports she has been under a lot of stress since being from her for the past few months. For the past 6 months or so she has been having midsternal chest pain that has been increasing in severity since that time. Has been having chest pain recently several times per week lasting up to 10 minutes. Chest pain is relieved by aspirin and deep breathing. Current smoker. No known family history of heart disease. She had a hysterectomy in August with some constipation after the surgery. Since the constipation she has been having episodes of bright red blood per rectum, last episode 1 week ago. EKG shows no nonspecific T-wave inversions anteriorly and inferiorly when compared to previous EKG 2014. Troponins 0.25, 0.50. Patient started on heparin drip. Review of Systems All other systems reviewed negative except as stated in HPI PMFSH - History History Provided By: Patient - Medical History Medical History: Medical History (Last Updated 03/24/18 @ 08:09 by JERROD Jaeger) Asthma History of hysterectomy - Family History Family History: Family History (Last Updated 03/24/18 @ 08:09 by JERROD Jaeger) Other No history of heart disease - Tobacco History Second Hand Smoke Exposure: Yes Tobacco Use In Past 30 Days: Yes Smoking Status: Current every day smoker Tobacco Type: Cigarettes - Alcohol History How Often Do You Have a Drink Containing Alcohol: Monthly or less - Substance Use History Substance History: No History of Abuse - Immunization History Tetanus Immunization: Unsure Hx Influenza Vaccine This Season: No Medications and Allergies Allergies Allergy/AdvReac Type Severity Reaction Status Date / Time cat dander Allergy Severe Shortness Verified 03/23/18 21:44 of Breath tree and shrub pollen Allergy Severe Shortness Verified 03/23/18 21:44 of Breath *MDRO Multi-Drug Resistant AdvReac Unknown Itching Uncoded 03/23/18 21:44 Organism Home Medications Medication Instructions Recorded Confirmed Type Tylenol Arthritis Pain 650 PO Q12HR PRN 03/24/18 History albuterol sulfate [Ventolin HFA] INHALATION 03/24/18 History leflunomide 20 mg PO DAILY 03/24/18 03/24/18 History Active Medications: Active Medications Acetaminophen (Tylenol) 500 mg PO Q6H PRN PRN Reason: HEADACHE Last Admin: 03/24/18 06:17 Dose: 500 mg Aspirin (Ecotrin) 81 mg PO DAILY NIDA Heparin Sodium/Dextrose (Heparin/D5w 25,000 U/250 Ml) 25,000 unit in 250 mls @ 0 mls/hr IV.CONT TITRATE PRN; Protocol PRN Reason: Per Protocol Last Admin: 03/23/18 23:26 Dose: 900 units/hr, 9 mls/hr Nitroglycerin (Nitrostat Sl) 0.4 mg SL Q5M PRN PRN Reason: CHEST PAIN Last Admin: 03/23/18 23:10 Dose: 0.4 mg Nitroglycerin (Nitrostat Sl) 0.4 mg SL Q5M PRN PRN Reason: CHEST PAIN Sodium Chloride (Ns Flush) 2 ml IV.FLUSH UNSCH PRN PRN Reason: FLUSH AFTER USING IV ACCESS Exam Vital signs: Vital Signs 03/23/18 21:44 03/23/18 22:01 03/23/18 22:25 Temperature 98.3 F Pulse Rate 81 82 Respiratory Rate 18 16 Blood Pressure 144/85 H 127/70 Pulse Oximetry 97 97 97 03/23/18 23:13 03/24/18 00:00 03/24/18 04:00 Temperature 97.3 F L 97.9 F Pulse Rate 81 80 79 Respiratory Rate 16 16 16 Blood Pressure 120/59 L 131/77 141/93 H Pulse Oximetry 96 95 94 L Intake & Output 03/23/18 03/24/18 03/24/18 18:59 06:59 18:59 Intake Total 0 / 0 Balance 0 / 0 Weight 160 lb 11.472 oz Intake: Oral 0 / 0 Other: # Voids 3 Narrative: GENERAL: Well-developed well-nourished. In no acute distress. NECK: No carotid bruits. No JVD. CARDIOVASCULAR: Regular rate and rhythm. No murmur appreciated. RESPIRATORY: No accessory muscle use. Clear to auscultation. Breath sounds equal bilaterally. MUSCULOSKELETAL: No clubbing or cyanosis. No edema. NEUROLOGICAL: Awake and alert. Normal speech. Results 03/24/18 04:41 03/23/18 22:10 Cardiac Enzymes 03/23/18 03/23/18 03/24/18 Range/Units 22:10 22:10 04:41 AST 28 (15-37) U/L CK-MB (CK-2) 1.9 (0.5-3.6) ng/mL Troponin I 0.25 H 0.50 H D (0.02-0.05) ng/mL Coagulation 03/23/18 03/24/18 Range/Units 22:10 04:41 PT 10.5 (9.8-11.6) sec APTT 27.9 32.2 H (24.3-30.1) sec CBC 03/23/18 03/24/18 Range/Units 22:10 04:41 WBC 10.0 9.5 (4.0-11.0) th/mm3 RBC 4.31 4.27 (4.00-5.30) mil/mm3 Hgb 12.2 12.0 (11.6-15.3) gm/dL Hct 36.1 36.0 (35.0-46.0) % Plt Count 537 H 488 H (150-450) th/mm3 Neut # (Auto) 7.3 (1.8-7.7) th/mm3 Lymph # (Auto) 1.5 (1.0-4.8) th/mm3 [place] # (Auto) 0.8 (0.0-0.9) th/mm3 Eos # (Auto) 0.3 (0.0-0.4) th/mm3 Baso # (Auto) 0.1 (0.0-0.2) th/mm3 Comprehensive Metabolic Panel 03/23/18 Range/Units 22:10 Sodium 140 (136-145) meq/L Potassium 4.8 (3.5-5.1) meq/L Chloride 108 H (98-107) meq/L Carbon Dioxide 27.2 (21.0-32.0) meq/L BUN 12 (7-18) mg/dL Creatinine 1.06 H (0.50-1.00) mg/dL Calcium 8.9 (8.5-10.1) mg/dL AST 28 (15-37) U/L ALT 24 (10-53) U/L Alkaline Phosphatase 87 (45-117) U/L Total Protein 7.9 (6.4-8.2) g/dL Albumin 3.4 (3.4-5.0) g/dL Intake and Output 03/23/18 03/24/18 03/24/18 22:59 06:59 14:59 Intake Total 0 / 0 Balance 0 / 0 Intake: Oral 0 / 0 Other: # Voids 3 Weight 160 lb 160 lb 11.472 oz Assessment and Plan - Plan 53-year-old female with past medical history of asthma, arthritis who presented with chest pain. For the past 6 months or so she has been having midsternal chest pain that has been increasing in severity since that time. Has been having chest pain recently several times per week lasting up to 10 minutes. Chest pain is relieved by aspirin and deep breathing. Current smoker. No known family history of heart disease. EKG shows no nonspecific T-wave inversions anteriorly and inferiorly when compared to previous EKG 2014. Troponins 0.25, 0.50. NSTEMI: Continue daily aspirin. Continue heparin drip for now. Keep n.p.o. Will need LHC, but needs GI eval first. Rectal bleeding: Hemoglobin normal at 12. Consult GI, may need workup prior to DAPT. Ok proceed with GI procedure if need from CV standpoint. Discussed Condition With: Patient, Dr. Mckeon <Jamari Mckeon - Last Filed: 03/24/18 09:41> History of Present Illness Primary Care Provider: Pepe Flores Family Provider: Pepe Flores [facility] - Medical History Medical History: Medical History (Last Updated 03/24/18 @ 08:09 by JERROD Jaeger) Asthma History of hysterectomy - Family History Family History: Family History (Last Updated 03/24/18 @ 08:09 by JERROD Jaeger) Other No history of heart disease Medications and Allergies Active Medications: Active Medications Acetaminophen (Tylenol) 500 mg PO Q6H PRN PRN Reason: HEADACHE Last Admin: 03/24/18 06:17 Dose: 500 mg Aspirin (Ecotrin) 81 mg PO DAILY NIDA Heparin Sodium/Dextrose (Heparin/D5w 25,000 U/250 Ml) 25,000 unit in 250 mls @ 0 mls/hr IV.CONT TITRATE PRN; Protocol PRN Reason: Per Protocol Last Admin: 03/23/18 23:26 Dose: 900 units/hr, 9 mls/hr Nitroglycerin (Nitrostat Sl) 0.4 mg SL Q5M PRN PRN Reason: CHEST PAIN Last Admin: 03/23/18 23:10 Dose: 0.4 mg Nitroglycerin (Nitrostat Sl) 0.4 mg SL Q5M PRN PRN Reason: CHEST PAIN Sodium Chloride (Ns Flush) 2 ml IV.FLUSH UNSCH PRN PRN Reason: FLUSH AFTER USING IV ACCESS Exam Vital signs: Vital Signs 03/23/18 21:44 03/23/18 22:01 03/23/18 22:25 Temperature 98.3 F Pulse Rate 81 82 Respiratory Rate 18 16 Blood Pressure 144/85 H 127/70 Pulse Oximetry 97 97 97 03/23/18 23:13 03/24/18 00:00 03/24/18 04:00 Temperature 97.3 F L 97.9 F Pulse Rate 81 80 79 Respiratory Rate 16 16 16 Blood Pressure 120/59 L 131/77 141/93 H Pulse Oximetry 96 95 94 L 03/24/18 08:00 Temperature 98.0 F Pulse Rate 68 Respiratory Rate 17 Blood Pressure 141/82 H Pulse Oximetry 96 Intake & Output 03/23/18 03/24/18 03/24/18 18:59 06:59 18:59 Intake Total 0 / 0 Balance 0 / 0 Weight 72.9 kg Intake: Oral 0 / 0 Other: # Voids 3 Results 03/24/18 04:41 03/23/18 22:10 Cardiac Enzymes 03/23/18 03/23/18 03/24/18 Range/Units 22:10 22:10 04:41 AST 28 (15-37) U/L CK-MB (CK-2) 1.9 (0.5-3.6) ng/mL Troponin I 0.25 H 0.50 H D (0.02-0.05) ng/mL Coagulation 03/23/18 03/24/18 Range/Units 22:10 04:41 PT 10.5 (9.8-11.6) sec APTT 27.9 32.2 H (24.3-30.1) sec CBC 03/23/18 03/24/18 Range/Units 22:10 04:41 WBC 10.0 9.5 (4.0-11.0) th/mm3 RBC 4.31 4.27 (4.00-5.30) mil/mm3 Hgb 12.2 12.0 (11.6-15.3) gm/dL Hct 36.1 36.0 (35.0-46.0) % Plt Count 537 H 488 H (150-450) th/mm3 Neut # (Auto) 7.3 (1.8-7.7) th/mm3 Lymph # (Auto) 1.5 (1.0-4.8) th/mm3 [place] # (Auto) 0.8 (0.0-0.9) th/mm3 Eos # (Auto) 0.3 (0.0-0.4) th/mm3 Baso # (Auto) 0.1 (0.0-0.2) th/mm3 Comprehensive Metabolic Panel 03/23/18 Range/Units 22:10 Sodium 140 (136-145) meq/L Potassium 4.8 (3.5-5.1) meq/L Chloride 108 H (98-107) meq/L Carbon Dioxide 27.2 (21.0-32.0) meq/L BUN 12 (7-18) mg/dL Creatinine 1.06 H (0.50-1.00) mg/dL Calcium 8.9 (8.5-10.1) mg/dL AST 28 (15-37) U/L ALT 24 (10-53) U/L Alkaline Phosphatase 87 (45-117) U/L Total Protein 7.9 (6.4-8.2) g/dL Albumin 3.4 (3.4-5.0) g/dL Intake and Output 03/23/18 03/24/18 03/24/18 22:59 06:59 14:59 Intake Total 0 / 0 Balance 0 / 0 Intake: Oral 0 / 0 Other: # Voids 3 Weight 72.575 kg 72.9 kg Assessment and Plan - Attending Attestation NSTEMI BRBPR - Hb stable. GI clearance LHC when cleared heparin gtt. ok to hold if GI procedure clear from cardio perspective for any GI procedures necessary
--- NOTE | 2018-03-24 10:20 | P.HPIM ---
History of Present Illness Service: 53yo female presents with ant chest pains for months but worsening over past several weeks. Takes asa daily and admits to mixed drink etoh use over past several weeks. She and familiy are concerned about her heart and if she is having heart attack. She also has problems with passing blood in her stool that turns water in bowel red. She was placed on heparing gtt for concerns about nstemi. currently no cp. c/o worsening heartburn and usint otc zantac. PMH hysterectomy gerd diverticulosis asthma OA FH NC SH 1mixed drink per night less 1pack cigs. per day Primary Care Physician: Pepe Flores - Diagnosis (1) Acute non-ST elevation myocardial infarction (NSTEMI) Review of Systems chest pain blood in stool PMFSH - History History Provided By: Patient - Medical History Medical History: Medical History (Last Updated 03/24/18 @ 08:09 by JERROD Jaeger) Asthma History of hysterectomy - Family History Family History: Family History (Last Updated 03/24/18 @ 08:09 by JERROD Jaeger) Other No history of heart disease - Tobacco History Second Hand Smoke Exposure: Yes Tobacco Use In Past 30 Days: Yes Smoking Status: Current every day smoker Tobacco Type: Cigarettes - Alcohol History How Often Do You Have a Drink Containing Alcohol: Monthly or less - Substance Use History Substance History: No History of Abuse - Immunization History Tetanus Immunization: Unsure Hx Influenza Vaccine This Season: No Medications and Allergies Active Medications: Active Medications Acetaminophen (Tylenol) 500 mg PO Q6H PRN PRN Reason: HEADACHE Last Admin: 03/24/18 06:17 Dose: 500 mg Aspirin (Ecotrin) 81 mg PO DAILY NIDA Heparin Sodium/Dextrose (Heparin/D5w 25,000 U/250 Ml) 25,000 unit in 250 mls @ 0 mls/hr IV.CONT TITRATE PRN; Protocol PRN Reason: Per Protocol Last Admin: 03/23/18 23:26 Dose: 900 units/hr, 9 mls/hr Nitroglycerin (Nitrostat Sl) 0.4 mg SL Q5M PRN PRN Reason: CHEST PAIN Last Admin: 03/23/18 23:10 Dose: 0.4 mg Nitroglycerin (Nitrostat Sl) 0.4 mg SL Q5M PRN PRN Reason: CHEST PAIN Sodium Chloride (Ns Flush) 2 ml IV.FLUSH UNSCH PRN PRN Reason: FLUSH AFTER USING IV ACCESS Allergies Allergy/AdvReac Type Severity Reaction Status Date / Time cat dander Allergy Severe Shortness Verified 03/23/18 21:44 of Breath tree and shrub pollen Allergy Severe Shortness Verified 03/23/18 21:44 of Breath *MDRO Multi-Drug Resistant AdvReac Unknown Itching Uncoded 03/23/18 21:44 Organism Home Medications Medication Instructions Recorded Confirmed Type albuterol sulfate [Ventolin HFA] INHALATION 03/24/18 History leflunomide 20 mg PO DAILY 03/24/18 03/24/18 History Exam Vital signs: Vital Signs 03/23/18 21:44 03/23/18 22:01 03/23/18 22:25 Temperature 98.3 F Pulse Rate 81 82 Respiratory Rate 18 16 Blood Pressure 144/85 H 127/70 Pulse Oximetry 97 97 97 03/23/18 23:13 03/24/18 00:00 03/24/18 04:00 Temperature 97.3 F L 97.9 F Pulse Rate 81 80 79 Respiratory Rate 16 16 16 Blood Pressure 120/59 L 131/77 141/93 H Pulse Oximetry 96 95 94 L 03/24/18 08:00 03/24/18 10:13 Temperature 98.0 F Pulse Rate 68 Respiratory Rate 17 Blood Pressure 141/82 H Pulse Oximetry 96 97 Intake & Output 03/23/18 03/24/18 03/24/18 18:59 06:59 18:59 Intake Total 0 / 0 Balance 0 / 0 Weight 72.9 kg Intake: Oral 0 / 0 Other: # Voids 3 heart reg lung ctda abd /snt ext no edema Results - Labs CBC & Chem 7: 03/27/18 04:09 03/27/18 04:09 Labs: Short CBC 03/23/18 03/24/18 Range/Units 22:10 04:41 WBC 10.0 9.5 (4.0-11.0) th/mm3 Hgb 12.2 12.0 (11.6-15.3) gm/dL Hct 36.1 36.0 (35.0-46.0) % Plt Count 537 H 488 H (150-450) th/mm3 BMP 03/23/18 22:10 Sodium 140 Potassium 4.8 Chloride 108 H Carbon Dioxide 27.2 BUN 12 Creatinine 1.06 H Calcium 8.9 Cardiac Enzymes 03/23/18 03/23/18 03/24/18 Range/Units 22:10 22:10 04:41 Total Creatine Kinase 125 101 (26-192) U/L CK-MB (CK-2) 1.9 (0.5-3.6) ng/mL Troponin I 0.25 H 0.50 H D (0.02-0.05) ng/mL Liver Function 03/23/18 Range/Units 22:10 Total Bilirubin 0.2 (0.2-1.0) mg/dL AST 28 (15-37) U/L ALT 24 (10-53) U/L Alkaline Phosphatase 87 (45-117) U/L Albumin 3.4 (3.4-5.0) g/dL - Imaging Impressions Chest X-Ray 03/23/18 22:01 CONCLUSION: Very mild bibasilar atelectasis. Mild pleural and parenchymal scarring versus very small pleural effusion at the left base. Caprini VTE Risk Assessment Caprini VTE Risk Assessment: Moderate/High Risk (score >= 2) Caprini Risk Assessment Model: Point Value = 1 Point Value = 2 Point Value = 3 Point Value = 5 Age 41-60 Minor surgery BMI > 25 kg/m2 Swollen legs Varicose veins or History of unexplained or recurrent spontaneous Oral contraceptives or hormone replacement Sepsis (< 1 month) Serious lung disease, including pneumonia (< 1 month) Abnormal pulmonary function Acute myocardial infarction Congestive heart failure (< 1 month) History of inflammatory bowel disease Medical patient at bed rest Age 61-74 Arthroscopic surgery Major open surgery (> 45 min) Laparoscopic surgery (> 45 min) Malignancy Confined to bed (> 72 hours) Immobilizing plaster cast Central venous access Age >= 75 History of VTE Family history of VTE Factor V Leiden Prothrombin [id number] Lupus anticoagulant Anticardiolipin antibodies Elevated serum homocysteine Heparin-induced thrombocytopenia Other congenital or acquired thrombophilia Stroke (< 1 month) Elective arthroplasty Hip, pelvis, or leg fracture Acute spinal cord injury (< 1 month) Prophylaxis Regimen: Total Risk Factor Score Risk Level Prophylaxis Regimen 0-1 Low Early ambulation 2 Moderate Order ONE of the following: *Sequential Compression Device (SCD) *Heparin 5000 units SQ BID 3-4 Higher Order ONE of the following medications: *Heparin 5000 units SQ TID *Enoxaparin/Lovenox 40 mg SQ daily (WT < 150 kg, CrCl > 30 mL/min) *Enoxaparin/Lovenox 30 mg SQ daily (WT < 150 kg, CrCl > 10-29 mL/min) *Enoxaparin/Lovenox 30 mg SQ BID (WT < 150 kg, CrCl > 30 mL/min) AND/OR *Sequential Compression Device (SCD) 5 or more Highest Order ONE of the following medications: *Heparin 5000 units SQ TID (Preferred with Epidurals) *Enoxaparin/Lovenox 40 mg SQ daily (WT < 150 kg, CrCl > 30 mL/min) *Enoxaparin/Lovenox 30 mg SQ daily (WT < 150 kg, CrCl > 10-29 mL/min) *Enoxaparin/Lovenox 30 mg SQ BID (WT < 150 kg, CrCl > 30 mL/min) AND *Sequential Compression Device (SCD) Assessment and Plan - Assessment (1) Acute non-ST elevation myocardial infarction (NSTEMI) Code(s): I21.4 - Non-ST elevation (NSTEMI) myocardial infarction Status: Acute - Plan 1. nstemi presents with cp and elevated troponin seen by cardiology who plans LHC but needs GI wup first pt started on heparing gtt smoking cessation discussed. 2. rectal bleeding. gerd/heartburn GI consult for egd/colonoscopy prior to LHC and dapt H&P: Quality - VTE Deep Vein Thrombosis/Pulmonary Embolism Present on Admission: No
--- NOTE | 2018-03-24 11:45 | P.CONGI ---
History of Present Illness Consult date: 03/24/18 Consult reason: GIB Chief complaint: NSTEMI History of Present Illness: This is a 53 yo F who has been having intermittent chest pain for months, that presented with acute worsening of chest pain and has been found to have elevated troponins. Cardiology is planning on doing a cardiac catheterization with possible need for PCI and has consulted our service to evaluate pt for reports of rectal bleeding prior to cardiac cath. According to Dr. Mike brody, pt has been cleared for any GI procedure. Pt reports intermittent rectal bleeding, states first episode was in October when she had 3 bloody BMs. The blood was so significant that pt was unable to see her stool through all the blood. This resolved on its own. She states the last episode of rectal bleeding was a few days ago, again enough blood to fill the toilet bowl, only had one episode of this at that time. Denies any associated abdominal pain or cramping. Thinks she has lost some weight over the past couple weeks, does not weight herself but notices a difference in how her clothes fit. Also reports significant heartburn for months but worse over the past few weeks that has not been resolved with OTC Zantac. Pt does not normally drink alcohol but has been drinking a glass of mixed liquor drink a night for the past couple weeks. Also admits to smoking a little less than a pack a day. Has been taking ASA twice a day for the past few months because of the chest pains. Has never had EGD or colonoscopy. Denies family history of colon cancer. <Payton Farrar - Last Filed: 03/24/18 11:35> Review of Systems Gastrointestinal: Reports bright, red blood in stools, Reports heartburn, Denies abdominal pain, Denies nausea, Denies vomiting <Payton Farrar - Last Filed: 03/24/18 11:35> PMFSH - History History Provided By: Patient - Medical History Medical History: Medical History (Last Updated 03/24/18 @ 08:09 by JERROD Jaeger) Asthma History of hysterectomy - Family History Family History: Family History (Last Updated 03/24/18 @ 08:09 by JERROD Jaeger) Other No history of heart disease - Tobacco History Second Hand Smoke Exposure: Yes Tobacco Use In Past 30 Days: Yes Smoking Status: Current every day smoker Tobacco Type: Cigarettes - Alcohol History How Often Do You Have a Drink Containing Alcohol: Monthly or less - Substance Use History Substance History: No History of Abuse - Immunization History Tetanus Immunization: Unsure Hx Influenza Vaccine This Season: No <Payton Farrar - Last Filed: 03/24/18 11:35> - Medical History Medical History: Medical History (Last Updated 03/24/18 @ 08:09 by JERROD Jaeger) Asthma History of hysterectomy - Family History Family History: Family History (Last Updated 03/24/18 @ 08:09 by JERROD Jaeger) Other No history of heart disease <Lisa Chacko - Last Filed: 03/24/18 17:24> Medications and Allergies Active Medications: Active Medications Acetaminophen (Tylenol) 500 mg PO Q6H PRN PRN Reason: HEADACHE Last Admin: 03/24/18 06:17 Dose: 500 mg Albuterol (Duoneb Neb (Prn)) 1 ampul NEB Q2HR NEB PRN PRN Reason: sob/wheezing Aspirin (Ecotrin) 81 mg PO DAILY NIDA Budesonide/Formoterol Fumarate (Symbicort 160/4.5 Mcg Inh) 2 puff INH BID NIDA Heparin Sodium/Dextrose (Heparin/D5w 25,000 U/250 Ml) 25,000 unit in 250 mls @ 0 mls/hr IV.CONT TITRATE PRN; Protocol PRN Reason: Per Protocol Last Admin: 03/23/18 23:26 Dose: 900 units/hr, 9 mls/hr Sodium Chloride (Ns Inj) 1,000 mls @ 100 mls/hr IV.CONT .Q10H NIDA Nitroglycerin (Nitrostat Sl) 0.4 mg SL Q5M PRN PRN Reason: CHEST PAIN Last Admin: 03/23/18 23:10 Dose: 0.4 mg Nitroglycerin (Nitrostat Sl) 0.4 mg SL Q5M PRN PRN Reason: CHEST PAIN Pantoprazole Sodium (Protonix Inj) 40 mg IV.PUSH Q12H NIDA Sodium Chloride (Ns Flush) 2 ml IV.FLUSH UNSCH PRN PRN Reason: FLUSH AFTER USING IV ACCESS <Payton Farrar - Last Filed: 03/24/18 11:35> Active Medications: Active Medications Acetaminophen (Tylenol) 500 mg PO Q6H PRN PRN Reason: HEADACHE Last Admin: 03/24/18 06:17 Dose: 500 mg Albuterol (Duoneb Neb (Prn)) 1 ampul NEB Q2HR NEB PRN PRN Reason: sob/wheezing Aspirin (Ecotrin) 81 mg PO DAILY [facility] Last Admin: 03/24/18 12:48 Dose: 81 mg Budesonide/Formoterol Fumarate (Symbicort 160/4.5 Mcg Inh) 2 puff INH BID [facility] Heparin Sodium/Dextrose (Heparin/D5w 25,000 U/250 Ml) 25,000 unit in 250 mls @ 0 mls/hr IV.CONT TITRATE PRN; Protocol PRN Reason: Per Protocol Last Admin: 03/23/18 23:26 Dose: 900 units/hr, 9 mls/hr Sodium Chloride (Ns Inj) 1,000 mls @ 100 mls/hr IV.CONT .Q10H [facility] Last Admin: 03/24/18 14:32 Dose: 100 mls/hr Nitroglycerin (Nitrostat Sl) 0.4 mg SL Q5M PRN PRN Reason: CHEST PAIN Pantoprazole Sodium (Protonix Inj) 40 mg IV.PUSH Q12H [facility] Last Admin: 03/24/18 12:36 Dose: 40 mg Sodium Chloride (Ns Flush) 2 ml IV.FLUSH UNSCH PRN PRN Reason: FLUSH AFTER USING IV ACCESS <Lisa Chacko - Last Filed: 03/24/18 17:24> Allergies Allergy/AdvReac Type Severity Reaction Status Date / Time cat dander Allergy Severe Shortness Verified 03/23/18 21:44 of Breath tree and shrub pollen Allergy Severe Shortness Verified 03/23/18 21:44 of Breath *MDRO Multi-Drug Resistant AdvReac Unknown Itching Uncoded 03/23/18 21:44 Organism Home Medications Medication Instructions Recorded Confirmed Type Tylenol Arthritis Pain 650 PO Q12HR PRN 03/24/18 History albuterol sulfate [Ventolin HFA] INHALATION 03/24/18 History leflunomide 20 mg PO DAILY 03/24/18 03/24/18 History Exam Vital signs: Vital Signs 03/23/18 21:44 03/23/18 22:01 03/23/18 22:25 Temperature 98.3 F Pulse Rate 81 82 Respiratory Rate 18 16 Blood Pressure 144/85 H 127/70 Pulse Oximetry 97 97 97 03/23/18 23:13 03/24/18 00:00 03/24/18 04:00 Temperature 97.3 F L 97.9 F Pulse Rate 81 80 79 Respiratory Rate 16 16 16 Blood Pressure 120/59 L 131/77 141/93 H Pulse Oximetry 96 95 94 L 03/24/18 08:00 03/24/18 09:00 03/24/18 10:13 Temperature 98.0 F Pulse Rate 68 67 Respiratory Rate 17 Blood Pressure 141/82 H Pulse Oximetry 96 97 Intake & Output 03/23/18 03/24/18 03/24/18 18:59 06:59 18:59 Intake Total 0 / 0 Balance 0 / 0 Weight 72.9 kg Intake: Oral 0 / 0 Other: # Voids 3 - Constitutional no acute distress - Routine HEENT Exam Head: Present: normocephalic, atraumatic - Routine Respiratory Exam Absent: accessory muscle use - Routine Abdominal Exam Present: soft, normoactive bowel sounds. Absent: tenderness, distended - Routine Skin Exam Present: dry, warm - Routine Neurological Exam Present: alert, oriented X3 <Payton Farrar - Last Filed: 03/24/18 11:35> Vital signs: Vital Signs 03/23/18 21:44 03/23/18 22:01 03/23/18 22:25 Temperature 98.3 F Pulse Rate 81 82 Respiratory Rate 18 16 Blood Pressure 144/85 H 127/70 Pulse Oximetry 97 97 97 03/23/18 23:13 03/24/18 00:00 03/24/18 04:00 Temperature 97.3 F L 97.9 F Pulse Rate 81 80 79 Respiratory Rate 16 16 16 Blood Pressure 120/59 L 131/77 141/93 H Pulse Oximetry 96 95 94 L 03/24/18 08:00 03/24/18 09:00 03/24/18 10:13 Temperature 98.0 F Pulse Rate 68 67 Respiratory Rate 17 Blood Pressure 141/82 H Pulse Oximetry 96 97 03/24/18 12:00 03/24/18 16:00 Temperature 97.6 F Pulse Rate 80 59 L Respiratory Rate 18 Blood Pressure 113/72 Pulse Oximetry 96 Intake & Output 03/23/18 03/24/18 03/24/18 18:59 06:59 18:59 Intake Total 0 / 0 Balance 0 / 0 Weight 72.9 kg Intake: Oral 0 / 0 Other: # Voids 3 <Lisa Chacko - Last Filed: 03/24/18 17:24> Results - Labs CBC & Chem 7: 03/24/18 04:41 03/23/18 22:10 Labs: Laboratory Results - last 24 hr 03/23/18 03/23/18 03/23/18 22:10 22:10 22:10 WBC 10.0 RBC 4.31 Hgb 12.2 Hct 36.1 MCV 83.9 MCH 28.3 MCHC 33.8 RDW 16.0 Plt Count 537 H MPV 6.9 L Neut % (Auto) 73.3 H Lymph % (Auto) 15.1 Winkler % (Auto) 7.5 Eos % (Auto) 2.8 Baso % (Auto) 1.3 Neut # (Auto) 7.3 Lymph # (Auto) 1.5 Winkler # (Auto) 0.8 Eos # (Auto) 0.3 Baso # (Auto) 0.1 WBC Differential . Differential Comment Auto diff final PT 10.5 INR 1.0 APTT 27.9 Sodium 140 Potassium 4.8 Chloride 108 H Carbon Dioxide 27.2 Anion Gap 5 BUN 12 Creatinine 1.06 H Estimated GFR 54 L Random Glucose 101 Calcium 8.9 Total Bilirubin 0.2 AST 28 ALT 24 Alkaline Phosphatase 87 Creatine Kinase Total Creatine Kinase CK-MM (CK-3) % CK-MB (CK-2) CK-MB (CK-2) % CK-BB (CK-1) % CK and CKMB Interp Troponin I 0.25 H Total Protein 7.9 Albumin 3.4 Lipase 59 L 03/23/18 03/23/18 03/24/18 22:10 22:10 04:41 WBC 9.5 RBC 4.27 Hgb 12.0 Hct 36.0 MCV 84.3 MCH 28.1 MCHC 33.3 RDW 15.8 Plt Count 488 H MPV 7.2 Neut % (Auto) Lymph % (Auto) Winkler % (Auto) Eos % (Auto) Baso % (Auto) Neut # (Auto) Lymph # (Auto) Winkler # (Auto) Eos # (Auto) Baso # (Auto) WBC Differential Differential Comment PT INR APTT Sodium Potassium Chloride Carbon Dioxide Anion Gap BUN Creatinine Estimated GFR Random Glucose Calcium Total Bilirubin AST ALT Alkaline Phosphatase Creatine Kinase Cancelled Total Creatine Kinase 125 CK-MM (CK-3) % Cancelled CK-MB (CK-2) 1.9 CK-MB (CK-2) % Cancelled CK-BB (CK-1) % Cancelled CK and CKMB Interp Cancelled Troponin I Total Protein Albumin Lipase 03/24/18 03/24/18 04:41 04:41 WBC RBC Hgb Hct MCV MCH MCHC RDW Plt Count MPV Neut % (Auto) Lymph % (Auto) Winkler % (Auto) Eos % (Auto) Baso % (Auto) Neut # (Auto) Lymph # (Auto) Winkler # (Auto) Eos # (Auto) Baso # (Auto) WBC Differential Differential Comment PT INR APTT 32.2 H Sodium Potassium Chloride Carbon Dioxide Anion Gap BUN Creatinine Estimated GFR Random Glucose Calcium Total Bilirubin AST ALT Alkaline Phosphatase Creatine Kinase Total Creatine Kinase 101 CK-MM (CK-3) % CK-MB (CK-2) CK-MB (CK-2) % CK-BB (CK-1) % CK and CKMB Interp Troponin I 0.50 H D Total Protein Albumin Lipase - Imaging Impressions Chest X-Ray 03/23/18 22:01 CONCLUSION: Very mild bibasilar atelectasis. Mild pleural and parenchymal scarring versus very small pleural effusion at the left base. <Payton Farrar - Last Filed: 03/24/18 11:35> - Labs CBC & Chem 7: 03/24/18 04:41 03/23/18 22:10 Labs: Laboratory Results - last 24 hr 03/23/18 03/23/18 03/23/18 22:10 22:10 22:10 WBC 10.0 RBC 4.31 Hgb 12.2 Hct 36.1 MCV 83.9 MCH 28.3 MCHC 33.8 RDW 16.0 Plt Count 537 H MPV 6.9 L Neut % (Auto) 73.3 H Lymph % (Auto) 15.1 Winkler % (Auto) 7.5 Eos % (Auto) 2.8 Baso % (Auto) 1.3 Neut # (Auto) 7.3 Lymph # (Auto) 1.5 Winkler # (Auto) 0.8 Eos # (Auto) 0.3 Baso # (Auto) 0.1 WBC Differential . Differential Comment Auto diff final PT 10.5 INR 1.0 APTT 27.9 Sodium 140 Potassium 4.8 Chloride 108 H Carbon Dioxide 27.2 Anion Gap 5 BUN 12 Creatinine 1.06 H Estimated GFR 54 L Random Glucose 101 Calcium 8.9 Total Bilirubin 0.2 AST 28 ALT 24 Alkaline Phosphatase 87 Creatine Kinase Total Creatine Kinase CK-MM (CK-3) % CK-MB (CK-2) CK-MB (CK-2) % CK-BB (CK-1) % CK and CKMB Interp Troponin I 0.25 H Total Protein 7.9 Albumin 3.4 Lipase 59 L 03/23/18 03/23/18 03/24/18 22:10 22:10 04:41 WBC 9.5 RBC 4.27 Hgb 12.0 Hct 36.0 MCV 84.3 MCH 28.1 MCHC 33.3 RDW 15.8 Plt Count 488 H MPV 7.2 Neut % (Auto) Lymph % (Auto) Winkler % (Auto) Eos % (Auto) Baso % (Auto) Neut # (Auto) Lymph # (Auto) Winkler # (Auto) Eos # (Auto) Baso # (Auto) WBC Differential Differential Comment PT INR APTT Sodium Potassium Chloride Carbon Dioxide Anion Gap BUN Creatinine Estimated GFR Random Glucose Calcium Total Bilirubin AST ALT Alkaline Phosphatase Creatine Kinase Cancelled Total Creatine Kinase 125 CK-MM (CK-3) % Cancelled CK-MB (CK-2) 1.9 CK-MB (CK-2) % Cancelled CK-BB (CK-1) % Cancelled CK and CKMB Interp Cancelled Troponin I Total Protein Albumin Lipase 03/24/18 03/24/18 03/24/18 04:41 04:41 13:10 WBC RBC Hgb Hct MCV MCH MCHC RDW Plt Count MPV Neut % (Auto) Lymph % (Auto) Winkler % (Auto) Eos % (Auto) Baso % (Auto) Neut # (Auto) Lymph # (Auto) Winkler # (Auto) Eos # (Auto) Baso # (Auto) WBC Differential Differential Comment PT INR APTT 32.2 H Sodium Potassium Chloride Carbon Dioxide Anion Gap BUN Creatinine Estimated GFR Random Glucose Calcium Total Bilirubin AST ALT Alkaline Phosphatase Creatine Kinase Total Creatine Kinase 101 90 CK-MM (CK-3) % CK-MB (CK-2) CK-MB (CK-2) % CK-BB (CK-1) % CK and CKMB Interp Troponin I 0.50 H D 0.55 H Total Protein Albumin Lipase 03/24/18 13:10 WBC RBC Hgb Hct MCV MCH MCHC RDW Plt Count MPV Neut % (Auto) Lymph % (Auto) Winkler % (Auto) Eos % (Auto) Baso % (Auto) Neut # (Auto) Lymph # (Auto) Winkler # (Auto) Eos # (Auto) Baso # (Auto) WBC Differential Differential Comment PT INR APTT 33.3 H Sodium Potassium Chloride Carbon Dioxide Anion Gap BUN Creatinine Estimated GFR Random Glucose Calcium Total Bilirubin AST ALT Alkaline Phosphatase Creatine Kinase Total Creatine Kinase CK-MM (CK-3) % CK-MB (CK-2) CK-MB (CK-2) % CK-BB (CK-1) % CK and CKMB Interp Troponin I Total Protein Albumin Lipase - Imaging Impressions Chest X-Ray 03/23/18 22:01 CONCLUSION: Very mild bibasilar atelectasis. Mild pleural and parenchymal scarring versus very small pleural effusion at the left base. <Lisa Chacko - Last Filed: 03/24/18 17:24> Assessment and Plan - Plan Assessment: - NSTEMI- presented with chest pain, elevated serial troponin- cardiology planning on cath with possible PCI- has asked us to evaluate pt and that pt is cleared for any GI procedures due to reports of rectal bleeding Currently on Heparin gtt - Rectal bleeding-Intermittent rectal bleeding, states first episode was in October when she had 3 bloody BMs. The blood was so significant that pt was unable to see her stool through all the blood. This resolved on its own. She states the last episode of rectal bleeding was a few days ago, again enough blood to fill the toilet bowl, only had one episode of this at that time. Denies any associated abdominal pain or cramping. Thinks she has lost some weight over the past couple weeks, does not weight herself but notices a difference in how her clothes fit. Has never had EGD or colonoscopy. Denies family history of colon cancer. - Heartburn-Significant heartburn for months but worse over the past few weeks that has not been resolved with OTC Zantac. Pt does not normally drink alcohol but has been drinking a glass of mixed liquor drink a night for the past couple weeks. Also admits to smoking a little less than a pack a day. Has been taking ASA twice a day for the past few months because of the chest pains. Plan: EGD and colonoscopy tomorrow Obtain consent Clear liquids today Golytely prep NPO after MN Stop Heparin gtt at 4am Monitor H/H Continue Protonix CT abdomen and pelvis WO IV contrast (GFR 54) to evaluate for weight loss Further recommendations to follow Pt has been seen and examined by myself and Dr. Chacko and this note is written on her behalf <Payton Farrar - Last Filed: 03/24/18 11:35> - Attending Attestation seen, examined agree with above history of pleural effusion sec RA-s/p drainage <Lisa Chacko - Last Filed: 03/24/18 17:24>
[2018-03-24] MEDS: Pantoprazole Inj 40 MG Vial IV.PUSH SCH ×2 (12:36→22:26)
[2018-03-24] MEDS ORDERED: Diatrizoate Meglum/Diatrizoate Sod Liq 9 ML UDC PO ONE (13:00)
[2018-03-24 14:11] LABS: Troponin I 0.55 ng/mL (0.02-0.05)
[2018-03-24] MEDS: Sod Chloride 0.9% Inj 1,000 ML IV.CONT SCH ×2 (14:32→21:10)
[2018-03-24] MEDS ORDERED: PEG 3350/E-Lyte Soln 4000 ML Bottle PO ONE (16:00)
--- NOTE | 2018-03-24 18:01 | CT ---
EXAM DATE: 03/24/2018 5:56 PM EDT AGE/SEX: 53 years / Female INDICATIONS: Weight loss. CLINICAL DATA: This is the patient's initial encounter. Patient reports that signs and symptoms have been present for 1 day and indicates a pain score of 0/10. MEDICAL/SURGICAL HISTORY: None. Hysterectomy. RADIATION DOSE: 14.39 CTDI (mGy) COMPARISON: No prior exams available for comparison. TECHNIQUE: Multiple contiguous axial images were obtained through the abdomen. Images were obtained using multiple row detector helical technique. Using automated exposure control and adjustment of the mA and/or kV according to patient size, radiation dose was kept as low as reasonably achievable to o btain optimal diagnostic quality images. DICOM format image data is available electronically for rev iew and comparison. FINDINGS: Lung bases demonstrate small left effusion and subsegmental consolidation atelectasis on the left. Mi nimal dependent atelectasis on the right. No acute findings in the liver. Small cyst adjacent to the inferior vena cava and gallbladder. Spleen , adrenals, kidneys and pancreas unremarkable. No calcified gallstones. There is no bowel obstruction. There is colonic diverticulosis without evidence for diverticulitis. CONCLUSION: 1. No acute findings within the abdomen.. 2. Small left effusion with mild left basilar airspace disease. Etiology unclear on this exam. 3. Colonic diverticulosis without evidence for diverticulitis. Electronically signed by: Solis Bashir MD 03/24/2018 6:00 PM EDT
[2018-03-24] MEDS: Budesonide-Formoterol 160/4.5 MCG 6 GM Inhaler INH SCH (20:57)
[2018-03-24] MEDS: Heparin Drip 25,000 UNIT/250 ML BAG IV.CONT PRN (21:51)
[2018-03-24] MEDS ORDERED: Aspirin 325 MG Tablet PO SCH (23:01)
[2018-03-24] MEDS ORDERED: Sodium Chlor 0.9% Inj 500 ML IV.SIG SCH (23:45)
[2018-03-24] MEDS ORDERED: Chlorhexidine Gluconate 2% 1 Pack (2 Cloths) TOPICAL SCH (23:45)
[2018-03-25 03:12] LABS: Hematocrit 33.5 % (35.0-46.0); Mean Corpuscular Hemoglobin 27.6 pg (27.0-34.0); Mean Corpuscular Volume 83.7 fL (80.0-100.0); Mean Platelet Volume 7.5 fL (7.0-11.0); Platelet Count 447 th/mm3 (150-450); Red Blood Count 3.99 mil/mm3 (4.00-5.30); Red Cell Distribution Width 16.1 % (11.6-17.2); White Blood Count 7.4 th/mm3 (4.0-11.0)
--- NOTE | 2018-03-25 07:30 | ECG ---
Date Performed: 03/24/2018 Time Performed: 10:56:54 PTAGE: 53 years EKG: SINUS BRADYCARDIA ST DEVIATION AND MODERATE T-WAVE ABNORMALITY, CONSIDER LATERAL ISCHEMIA A BNORMAL ECG PREVIOUS TRACING : 03/24/2018 04.46 DOCTOR: Dalton Thibodeaux Interpretating Date/Time 03/25/2018 07:29:04
--- NOTE | 2018-03-25 07:39 | ECG ---
Date Performed: 03/24/2018 Time Performed: 04:46:24 PTAGE: 53 years EKG: Sinus rhythm . Possible anterior infarct - age undetermined Inferior/lateral ST-T changes may be due to myocardial ischemia Abnormal ECG PREVIOUS TRACING : 03/24/2018 00.23 DOCTOR: Dalton Thibodeaux Interpretating Date/Time 03/25/2018 07:33:41
--- NOTE | 2018-03-25 07:42 | ECG ---
Date Performed: 03/23/2018 Time Performed: 22:15:16 PTAGE: 53 years EKG: Sinus rhythm NONSPECIFIC ST & T-WAVE ABNORMALITY ABNORMAL ECG PREVIOUS TRACING : 02/04/2015 10.06 DOCTOR: Dalton Thibodeaux Interpretating Date/Time 03/25/2018 07:37:10
--- NOTE | 2018-03-25 10:29 | GIPROC ---
[facility] [address] [facility]. [facility], [address] EGD PROCEDURE REPORT EXAM DATE: 03/25/2018 PATIENT NAME: Madina Garcia MR #: [id number] BIRTHDATE: 1965 ATTENDING: Lisa Chacko MD ORDER #: [id number] DIRECTOR OF ADULT EPILEPSY: Derek Mccoy and Keiry Patel STATUS: inpatient INDICATIONS: The patient is a 53 yr old female here for an EGD due to gi bleeding, atypical chest pain PROCEDURE PERFORMED: EGD w/ biopsy MEDICATIONS: None and Per Anesthesia. TOPICAL ANESTHETIC: none CONSENT: The patient understands the risks and benefits of the procedure and understands that these risks include, but are not limited to: sedation, allergic reaction, infection, perforation and/or bleeding. Alternative means of evaluation and treatment include, among others: physical exam, x-rays, and/or surgical intervention. The patient elects to proceed with this endoscopic procedure. medical equipment was checked for proper function. Hand hygiene and appropriate measures for infection prevention was taken. After the risks, benefits and alternatives of the procedure were thoroughly explained, Informed consent was verified, confirmed and timeout was successfully executed by the treatment team. The patient was anesthetized with topical anesthesia and the Pentax [id number] endoscope was introduced through the mouth and advanced to the second portion of the duodenum. Retroflexed views revealed a hiatal hernia The gastroscope was then slowly withdrawn and removed. Duodenitis duodenal bulb-biopsy gastritis antrum-biopsy hiatal hernia. ADVERSE EVENTS: There were no complications. IMPRESSIONS: 1. Duodenitis duodenal bulb-biopsy gastritis antrum-biopsy hiatal hernia 2. Retroflexed views revealed a hiatal hernia RECOMMENDATIONS: 1. Await biopsy results. Biopsy results will not be ready for 7-10 days. If you don't hear from us in two weeks, call our office for biopsy results. 2. Anti-reflux regimen 3. Start PPI 4. Avoid NSAIDS PATIENT CONDITION: stable DISPOSITION: Inpatient REPEAT EXAM: Return 1 year EGD Lisa Chacko MD eSigned: Lisa Chacko MD 03/25/2018 10:28 AM cc: PATIENT NAME: Madina Garcia MR#: [id number]
--- NOTE | 2018-03-25 10:33 | GIPROC ---
[facility] [address] [facility]. [facility], [address] COLONOSCOPY PROCEDURE REPORT EXAM DATE: 03/25/2018 PATIENT NAME: Madina Garcia MR #: [id number] BIRTHDATE: 1965 ENDOSCOPIST: Lisa Chacko MD ORDER #: [id number] TELEVISION NEWS PRODUCER: Derek Mccoy and Keiry Patel STATUS: inpatient INDICATIONS: The patient is a 53 yr old female here for a colonoscopy due to rectal bleeding, abdominal pain PROCEDURE PERFORMED: Colonoscopy with biopsy Colonoscopy with polypectomy Colonoscopy with ablation MEDICATIONS: None and Per Anesthesia. PREP QUALITY: fair PREP TYPE:Other: ESTIMATED BLOOD LOSS: None CONSENT: The patient understands the risks and benefits of the procedure and understands that these risks include, but are not limited to: sedation, allergic reaction, infection, perforation and/or bleeding. Alternative means of evaluation and treatment include, among others: physical exam, x-rays, and/or surgical intervention. The patient elects to proceed with this endoscopic procedure. medical equipment was checked for proper function. Hand hygiene and appropriate measures for infection prevention was taken. After the risks, benefits and alternatives of the procedure were thoroughly explained, Informed consent was verified, confirmed and timeout was successfully executed by the treatment team. A digital exam revealed external hemorrhoids The Pentax [id number] endoscope was introduced through the anus and advanced to the cecum, which was identified by both the appendix and ileocecal valve. The instrument was then slowly withdrawn as the colon was fully examined. COLON FINDINGS: Diverticulosis sigmoid,descending polyp sessile sigmoid-8 mm-hot snre polypectomy , biopsy of base multiple sessile polyps in rectosigmoid, 5-7 mm-cold snare polypectomy for 4 of them , rest approximately 6 -abaltion with tip of snare internal hemorrhoids thermal destruction using tip of snare. Retroflexed views revealed internal hemorrhoids and Retroflexed views revealed medium internal hemorrhoids The scope was then completely withdrawn from the patient and the procedure terminated. PROCEDURE WITHDRAWAL TIME:10minutes ADVERSE EVENTS: There were no complications. IMPRESSIONS: 1. Diverticulosis sigmoid,descending polyp sessile sigmoid-8 mm-hot snre polypectomy , biopsy of base multiple sessile polyps in rectosigmoid, 5-7 mm-cold snare polypectomy for 4 of them , rest approximately 6 -abaltion with tip of snare internal hemorrhoids thermal destruction using tip of snare 2. Retroflexed views revealed internal hemorrhoids 3. Retroflexed views revealed medium internal hemorrhoids 4. Revealed external hemorrhoids RECOMMENDATIONS: 1. Await biopsy results. Biopsy results will not be ready for 7-10 days. If you don't hear from us in two weeks, call our office for results. 2. Benefiber 2 tsp daily 3. Probiotics from any [facility] or health food store 4. Yearly rectal exams 5. Proctozone cream RECALL: Return 3 years Colonoscopy Lisa Chacko MD eSigned: Lisa Chacko MD 03/25/2018 10:33 AM cc: PATIENT NAME: Madina Garcia MR#: [id number]
[2018-03-25] MEDS: Pantoprazole Inj 40 MG Vial IV.PUSH SCH ×2 (11:20→23:11)
[2018-03-25] MEDS: Budesonide-Formoterol 160/4.5 MCG 6 GM Inhaler INH SCH ×2 (11:25→21:28)
[2018-03-25] MEDS ORDERED: Lidocaine PF 1% Inj 5 ML Syringe INFILTRATN ONE (12:00)
[2018-03-25] MEDS ORDERED: Phenylephrine/NS 1000 MCG/10ML Syringe IV.PUSH ONE (12:00)
--- NOTE | 2018-03-25 13:48 | P.PNCA ---
Subjective Interval history: no complaints Physical Exam Vital signs: Vital Signs 03/24/18 16:00 03/24/18 19:46 03/24/18 20:00 Temperature 98.0 F 98.5 F Pulse Rate 60 71 Respiratory Rate 17 18 Blood Pressure 130/79 147/82 H Pulse Oximetry 95 97 95 03/25/18 00:00 03/25/18 04:00 03/25/18 10:05 Temperature 98.3 F 98.1 F Pulse Rate 61 70 Respiratory Rate 18 18 Blood Pressure 122/69 120/62 Pulse Oximetry 95 96 97 03/25/18 10:38 Temperature 97.8 F Pulse Rate 64 Respiratory Rate 14 Blood Pressure 102/59 L Pulse Oximetry 94 L Intake & Output 03/24/18 03/25/18 03/25/18 18:59 06:59 18:59 Intake Total 474 / 474 250 / 250 400 / 400 Output Total 1300 / 1300 Balance -826 / -826 250 / 250 400 / 400 Weight 77 kg Intake: IV 250 / 250 Heparin/D5W 25,000 U/250 mL 25, 250 / 250 000 unit In 250 ml @ Per Protocol IV.CONT TITRATE PRN Rx #:[id number] Oral 360 / 360 Anesthesia Amount 400 / 400 Other 114 / 114 Output: Urine 1300 / 1300 Other: Other Intake Source Saline Solution # Voids 6 # Bowel Movements 0 6 - Constitutional no acute distress - Routine HEENT Exam Head: Present: normocephalic Eye: Present: EOMI, PERRL - Routine Neck Exam Absent: JVD - Routine Respiratory Exam Present: CTA bilaterally - Routine Cardiovascular Exam Present: RRR Assessment and Plan - Plan 53-year-old female with past medical history of asthma, arthritis who presented with chest pain. For the past 6 months or so she has been having midsternal chest pain that has been increasing in severity since that time. Has been having chest pain recently several times per week lasting up to 10 minutes. Chest pain is relieved by aspirin and deep breathing. Current smoker. No known family history of heart disease. EKG shows no nonspecific T-wave inversions anteriorly and inferiorly when compared to previous EKG 2014. Troponins 0.25, 0.50. NSTEMI: Continue daily aspirin. Continue heparin drip for now. Keep n.p.o. Will need LHC, but needs GI eval first. Rectal bleeding: Hemoglobin normal at 12. Consult GI, may need workup prior to DAPT. Ok proceed with GI procedure if need from CV standpoint. NSTEMI - LHC tomorrow. NPO p light breakfast cleared by GI
--- NOTE | 2018-03-25 13:58 | P.PNIM ---
Subjective Interval history: no complaints Physical Exam Vital signs: Vital Signs 03/24/18 16:00 03/24/18 19:46 03/24/18 20:00 Temperature 98.0 F 98.5 F Pulse Rate 60 71 Respiratory Rate 17 18 Blood Pressure 130/79 147/82 H Pulse Oximetry 95 97 95 03/25/18 00:00 03/25/18 04:00 03/25/18 10:05 Temperature 98.3 F 98.1 F Pulse Rate 61 70 Respiratory Rate 18 18 Blood Pressure 122/69 120/62 Pulse Oximetry 95 96 97 03/25/18 10:38 Temperature 97.8 F Pulse Rate 64 Respiratory Rate 14 Blood Pressure 102/59 L Pulse Oximetry 94 L Intake & Output 03/24/18 03/25/18 03/25/18 18:59 06:59 18:59 Intake Total 474 / 474 250 / 250 400 / 400 Output Total 1300 / 1300 Balance -826 / -826 250 / 250 400 / 400 Weight 77 kg Intake: IV 250 / 250 Heparin/D5W 25,000 U/250 mL 25, 250 / 250 000 unit In 250 ml @ Per Protocol IV.CONT TITRATE PRN Rx #:[id number] Oral 360 / 360 Anesthesia Amount 400 / 400 Other 114 / 114 Output: Urine 1300 / 1300 Other: Other Intake Source Saline Solution # Voids 6 # Bowel Movements 0 6 heart reg lung cta abd s/nt ext no edema Results - Labs CBC & Chem 7: 03/27/18 04:09 03/27/18 04:09 Laboratory Results - last 24 hr 03/24/18 03/24/18 03/25/18 13:10 20:59 02:38 WBC 7.4 RBC 3.99 L Hgb 11.0 L Hct 33.5 L MCV 83.7 MCH 27.6 MCHC 33.0 RDW 16.1 Plt Count 447 MPV 7.5 APTT 35.7 H Total Creatine Kinase 90 Troponin I 0.55 H 03/25/18 02:38 WBC RBC Hgb Hct MCV MCH MCHC RDW Plt Count MPV APTT 44.5 H D Total Creatine Kinase Troponin I - Imaging Impressions Abdomen/Pelvis CT 03/24/18 00:00 CONCLUSION: 1. No acute findings within the abdomen.. 2. Small left effusion with mild left basilar airspace disease. Etiology unclear on this exam. 3. Colonic diverticulosis without evidence for diverticulitis. Assessment and Plan - Assessment (1) Acute non-ST elevation myocardial infarction (NSTEMI) Code(s): I21.4 - Non-ST elevation (NSTEMI) myocardial infarction Status: Acute Plan: 1. nstemi heparin on hold for endoscopy LHC planned after GI w/up ok to hold heparin 2. rectal bleed/ gerd egd/colon today ppi hold heparin (2) Rectal bleeding Code(s): K62.5 - Hemorrhage of anus and rectum Status: Acute
--- NOTE | 2018-03-26 08:31 | P.PNCA ---
<Adolph Chapman - Last Filed: 03/26/18 08:28> Subjective Interval history: No further chest pain. No shortness of breath or palpitations. Denies any bleeding as well. Planning for heart catheterization this afternoon, all questions answered. Physical Exam Vital signs: Vital Signs 03/25/18 09:00 03/25/18 10:05 03/25/18 10:38 Temperature 97.8 F Pulse Rate 80 64 Respiratory Rate 14 Blood Pressure 102/59 L Pulse Oximetry 97 94 L 03/25/18 12:00 03/25/18 16:00 03/25/18 20:00 Temperature 98.3 F 97.9 F Pulse Rate 55 L 79 77 Respiratory Rate 16 20 Blood Pressure 134/68 118/72 Pulse Oximetry 92 L 93 L 03/26/18 00:00 03/26/18 04:00 Temperature 98.2 F 97.9 F Pulse Rate 60 81 Respiratory Rate 20 20 Blood Pressure 115/72 126/72 Pulse Oximetry 96 94 L Intake & Output 03/25/18 03/26/18 03/26/18 18:59 06:59 18:59 Intake Total 400 / 400 120 / 120 Balance 400 / 400 120 / 120 Weight 174 lb 2.643 oz Intake: Oral 120 / 120 Anesthesia Amount 400 / 400 Other: # Voids 6 3 # Bowel Movements 1 0 Narrative: GENERAL: Well-developed well-nourished. In no acute distress. NECK: No carotid bruits. No JVD. CARDIOVASCULAR: Regular rate and rhythm. No murmur appreciated. RESPIRATORY: No accessory muscle use. Clear to auscultation. Breath sounds equal bilaterally. MUSCULOSKELETAL: No clubbing or cyanosis. No edema. NEUROLOGICAL: Awake and alert. Normal speech. Assessment and Plan - Plan 53-year-old female with past medical history of asthma, arthritis who presented with chest pain. For the past 6 months or so she has been having midsternal chest pain that has been increasing in severity since that time. Has been having chest pain recently several times per week lasting up to 10 minutes. Chest pain is relieved by aspirin and deep breathing. Current smoker. No known family history of heart disease. EKG shows no nonspecific T-wave inversions anteriorly and inferiorly when compared to previous EKG 2014. Troponins 0.25, 0.50. NSTEMI: Continue daily aspirin. N.p.o. after light breakfast today, [facility] this afternoon. Rectal bleeding: Likely hemorrhoidal. Seen by GI status post EGD/colonoscopy, cleared for DAPT if needed. Discussed Condition With: Patient, RN, Dr. Mckeon <Jamari Mckeon - Last Filed: 03/26/18 16:48> Physical Exam Vital signs: Vital Signs 03/25/18 20:00 03/26/18 00:00 03/26/18 04:00 Temperature 97.9 F 98.2 F 97.9 F Pulse Rate 77 60 81 Respiratory Rate 20 20 20 Blood Pressure 118/72 115/72 126/72 Pulse Oximetry 93 L 96 94 L 03/26/18 08:00 03/26/18 16:37 Temperature 97.8 F Pulse Rate 62 Respiratory Rate 18 Blood Pressure 118/73 Pulse Oximetry 95 94 L Intake & Output 03/25/18 03/26/18 03/26/18 18:59 06:59 18:59 Intake Total 400 / 400 120 / 120 Balance 400 / 400 120 / 120 Weight 79 kg Intake: Oral 120 / 120 Anesthesia Amount 400 / 400 Other: # Voids 6 3 # Bowel Movements 1 0 Assessment and Plan - Attending Attestation NSTEMI - PCI SEAN RCA asa plavix bb statin DC planning for tomorrow
[2018-03-26] MEDS ORDERED: Iohexol 350 MG/ML 100 ML Vial (for Cath Lab) IVCONTRAST ONE (08:45)
--- NOTE | 2018-03-26 09:07 | P.PNGI ---
Subjective Interval history: Pt resting in bed, planned for a cardiac catheterization this afternoon. Reports small BM since colonoscopy, no further bleeding. Denies nausea, vomiting , abdominal pain. Physical Exam Vital signs: Vital Signs 03/25/18 09:00 03/25/18 10:05 03/25/18 10:38 Temperature 97.8 F Pulse Rate 80 64 Respiratory Rate 14 Blood Pressure 102/59 L Pulse Oximetry 97 94 L 03/25/18 12:00 03/25/18 16:00 03/25/18 20:00 Temperature 98.3 F 97.9 F Pulse Rate 55 L 79 77 Respiratory Rate 16 20 Blood Pressure 134/68 118/72 Pulse Oximetry 92 L 93 L 03/26/18 00:00 03/26/18 04:00 Temperature 98.2 F 97.9 F Pulse Rate 60 81 Respiratory Rate 20 20 Blood Pressure 115/72 126/72 Pulse Oximetry 96 94 L Intake & Output 03/25/18 03/26/18 03/26/18 18:59 06:59 18:59 Intake Total 400 / 400 120 / 120 Balance 400 / 400 120 / 120 Weight 79 kg Intake: Oral 120 / 120 Anesthesia Amount 400 / 400 Other: # Voids 6 3 # Bowel Movements 1 0 - Constitutional no acute distress - Routine HEENT Exam Head: Present: normocephalic, atraumatic - Routine Respiratory Exam Absent: accessory muscle use - Routine Abdominal Exam Present: soft, normoactive bowel sounds. Absent: tenderness, distended - Routine Skin Exam Present: dry, warm - Routine Neurological Exam Present: alert, oriented X3 Results - Labs CBC & Chem 7: 03/25/18 02:38 03/23/18 22:10 Assessment and Plan - Plan Assessment: - NSTEMI- presented with chest pain, elevated serial troponin- cardiology planning on cath with possible PCI- has asked us to evaluate pt and that pt is cleared for any GI procedures due to reports of rectal bleeding Currently on Heparin gtt - Rectal bleeding-Intermittent rectal bleeding, states first episode was in October when she had 3 bloody BMs. The blood was so significant that pt was unable to see her stool through all the blood. This resolved on its own. She states the last episode of rectal bleeding was a few days ago, again enough blood to fill the toilet bowl, only had one episode of this at that time. Denies any associated abdominal pain or cramping. Thinks she has lost some weight over the past couple weeks, does not weight herself but notices a difference in how her clothes fit. Has never had EGD or colonoscopy. Denies family history of colon cancer. - Heartburn-Significant heartburn for months but worse over the past few weeks that has not been resolved with OTC Zantac. Pt does not normally drink alcohol but has been drinking a glass of mixed liquor drink a night for the past couple weeks. Also admits to smoking a little less than a pack a day. Has been taking ASA twice a day for the past few months because of the chest pains. CT abdomen and pelvis WO IV contrast --> No acute findings within the abdomen. Small left effusion with mild left basilar airspace disease. Etiology unclear on this exam. Colonic diverticulosis without evidence for diverticulitis. (03/26) Pt planned for cardiac cath today. S/P EGD and colonoscopy yesterday EGD --> Duodenitis duodenal bulb-biopsy. Gastritis antrum-biopsy. Hiatal hernia Colonoscopy --> Diverticulosis sigmoid,descending. Polyp sessile sigmoid-8 mm- hot snare polypectomy, biopsy of base. Multiple sessile polyps in rectosigmoid, 5-7 mm-cold snare polypectomy for 4 of them , rest approximately 6 -ablation with tip of snare. Internal hemorrhoids thermal destruction using tip of snare Internal and external hemorrhoids. Plan: Protonix 40 mg daily EGD and colon biopsies pending OK for antiplatelet or blood thinners from a GI perspective Our service will sign off have pt follow up with GI after DC Pt has been seen and examined by myself and Dr. Chacko and this note is written on her behalf
--- NOTE | 2018-03-26 09:59 | P.PNIM ---
Subjective Interval history: pt hoping to go home if lhc negative. Physical Exam Vital signs: Vital Signs 03/25/18 10:05 03/25/18 10:38 03/25/18 12:00 Temperature 97.8 F Pulse Rate 64 55 L Respiratory Rate 14 Blood Pressure 102/59 L Pulse Oximetry 97 94 L 03/25/18 16:00 03/25/18 20:00 03/26/18 00:00 Temperature 98.3 F 97.9 F 98.2 F Pulse Rate 79 77 60 Respiratory Rate 16 20 20 Blood Pressure 134/68 118/72 115/72 Pulse Oximetry 92 L 93 L 96 03/26/18 04:00 Temperature 97.9 F Pulse Rate 81 Respiratory Rate 20 Blood Pressure 126/72 Pulse Oximetry 94 L Intake & Output 03/25/18 03/26/18 03/26/18 18:59 06:59 18:59 Intake Total 400 / 400 120 / 120 Balance 400 / 400 120 / 120 Weight 79 kg Intake: Oral 120 / 120 Anesthesia Amount 400 / 400 Other: # Voids 6 3 # Bowel Movements 1 0 heart reg lung cta abd s/nt ext no edema Results - Labs CBC & Chem 7: 03/27/18 04:09 03/27/18 04:09 Assessment and Plan - Assessment (1) Acute non-ST elevation myocardial infarction (NSTEMI) Code(s): I21.4 - Non-ST elevation (NSTEMI) myocardial infarction Status: Acute Plan: NSTEMI: Rectal Bleed GERD LHC: severe RCA dz 95% prox/mid. SEAN x 2 EGD/Colonoscopy:Duodenitis duodenal bulb-biopsy. Gastritis antrum-biopsy. Hiatal hernia Diverticulosis sigmoid,descending. Polyp sessile sigmoid-8 mm-hot snare polypectomy, biopsy of base. Multiple sessile polyps in rectosigmoid, 5-7 mm-cold snare polypectomy for 4 of them , rest approximately 6 -ablation with tip of snare. Internal hemorrhoids thermal destruction using tip of snare Internal and external hemorrhoids. discussed with cardiology. OK to dc home on bb/asa/plavix/statin f/u GI for bx results.
[2018-03-26] MEDS: Pantoprazole Inj 40 MG Vial IV.PUSH SCH (10:28)
[2018-03-26] MEDS: Budesonide-Formoterol 160/4.5 MCG 6 GM Inhaler INH SCH ×2 (10:28→20:42)
[2018-03-26] MEDS ORDERED: Heparin/NS PF Inj 1,000 ML ONE (15:24)
[2018-03-26] MEDS ORDERED: fentaNYL Citrate Inj 100 MCG/2 ML Ampul ONE (15:25)
[2018-03-26] MEDS ORDERED: Heparin 10,000 UNITS/10 ML Vial (for IV use) ONE (15:26)
[2018-03-26] MEDS ORDERED: Acetaminophen 325 MG Tablet PO PRN (16:15)
[2018-03-26] MEDS ORDERED: Atropine Inj 1 MG/ML Vial IV.PUSH PRN (16:15)
[2018-03-26] MEDS ORDERED: Misc Info for Pharmacy OTHER STA (16:15)
--- NOTE | 2018-03-26 17:07 | MA ---
cc: Jamari Mckeon MD DATE: 03/26/2018 DATE OF PROCEDURE: 03/26/2018 INDICATION FOR PROCEDURE: Non-ST elevation myocardial infarction. PROCEDURES PERFORMED: 1. Fluoroscopy with interpretation. 2. Coronary angiography. 3. Percutaneous coronary intervention of the right coronary with drug-eluting stents. METHOD: Risks, benefits and alternatives discussed with the patient. The patient understood and consented to the procedure. The patient was brought into the catheterization lab and placed on the catheterization table. The right wrist was prepped and draped in usual sterile fashion. The right wrist was anesthetized with 2% lidocaine. The right radial artery was cannulated and a 6-Mauritanian 7 cm sheath was placed without difficulty. The 200 mcg intraarterial nitroglycerin with the additional 3000 units of intravenous heparin was administered. CORONARY ANGIOGRAPHY: 1. Left main coronary has mild luminal irregularities. 2. Left anterior descending coronary has mild luminal irregularities, diagonal branch minor luminal irregularities. 3. Circumflex gives rise to an obtuse marginal branch, which has minor luminal irregularities. 4. Right coronary artery is a very large dominant vessel giving rise to a very large posterior descending and posterolateral branch. The proximal and mid segment of the right coronary artery has 95% subtotal occlusion. PERCUTANEOUS CORONARY INTERVENTION: The right coronary selectively engaged with a 6-Mauritanian JR4 catheter guide catheter and a 0.014 inch [employer] AG[employer] wire, 180 cm advanced down to the distal posterior descending branch. A 4.0 x 30 mm balloon was deployed on 2 sequential inflations in the proximal and mid segment followed by a 4.0 x 38 mm RX Synergy drug-eluting stent in the mid segment and a 4.0 x 24 mm Synergy drug-eluting stent to the proximal segment with minimal stent overlap. Repeat angiography showed no residual stenosis, OSMAN 3 flow. Guide wires removed. HemoBand applied. Angiomax was administered throughout the entire procedure to maintain appropriate anticoagulation. The patient tolerated the procedure well without any periprocedural complications. CONCLUSIONS: 1. Severe single vessel coronary artery disease involving the right coronary artery. 2. Successful percutaneous coronary intervention with drug-eluting stents to the right coronary artery. PLAN: We will monitor postprocedure for any postprocedure complication. Initiate aspirin, Plavix, statin and beta mk therapy. Anticipate possible discharge tomorrow. MD VA Ramos/KD , 04:16 PM , 04:30 PM
--- NOTE | 2018-03-26 21:58 | ECG ---
Date Performed: 03/26/2018 Time Performed: 17:34:56 PTAGE: 53 years EKG: Sinus rhythm . Possible anterior infarct Inferior/lateral ST-T changes Abnormal ECG PREVIOUS TRACING : 03/24/2018 10.56 Since the previous tracing, no significant change noted DOCTOR: Lyndon Wood Interpretating Date/Time 03/26/2018 21:57:33
[2018-03-26] MEDS: oxyCODONE/Acetaminophen 10/325 Tablet PO PRN (23:24)
[2018-03-27] MEDS: Pantoprazole Inj 40 MG Vial IV.PUSH SCH (04:42)
[2018-03-27] MEDS: oxyCODONE/Acetaminophen 10/325 Tablet PO PRN (04:47)
[2018-03-27 05:13] LABS: Calcium 8.9 mg/dL (8.5-10.1); Carbon Dioxide 23.6 meq/L (21.0-32.0); Potassium 3.7 meq/L (3.5-5.1)
[2018-03-27 05:17] LABS: Chol/HDL Ratio 8.38 Ratio; HDL Cholesterol 33.5 mg/dL (40.0-60.0)
[2018-03-27 05:28] LABS: Baso # (Auto) 0.1 th/mm3 (0.0-0.2); Baso % (Auto) 1.4 % (0.0-2.0); Eos # (Auto) 0.4 th/mm3 (0.0-0.4); Eos % (Auto) 4.8 % (0.0-4.0); Hematocrit 33.7 % (35.0-46.0); Hemoglobin 11.1 gm/dL (11.6-15.3); Mean Corpuscular HGB Conc 32.9 % (32.0-36.0); Mean Corpuscular Volume 85.1 fL (80.0-100.0); Mean Platelet Volume 7.5 fL (7.0-11.0); Mono # (Auto) 0.7 th/mm3 (0.0-0.9); Mono % (Auto) 8.6 % (0.0-8.0); Neut # (Auto) 4.8 th/mm3 (1.8-7.7); Neut % (Auto) 60.2 % (16.0-70.0); Platelet Count 407 th/mm3 (150-450); Red Blood Count 3.96 mil/mm3 (4.00-5.30)
--- NOTE | 2018-03-27 07:32 | CATHPROC ---
[employer] HIS Report Study Information Study Number Admission Scheduled Start Study Start [id number] Mar 23 2018 11:11PM 03/26/2018 Mar 26 2018 3:34PM [place] [facility] Cardiac Catheterization Admit Source Facility Department Other [facility] - Employee Communications Coordinator Physician and Clinical Staff Initial Jamari Colunga Sleeve Separator Sunday Rubi,ESTEFANIA Recorder Carolyn Aguirre,RT(R) Scrub Dimitry Diggs,RT(R) Procedures Performed Procedure Location (Site) Vessel Name Coronary Angiograms LCA Left Coronary Coronary Angiograms RCA Right Coronary Drug Eluting Inflatio RCA Mid Right Coronary Drug Eluting Inflatio RCA Prox Right Coronary PTCA RCA Mid Right Coronary PTCA RCA Prox Right Coronary PTCA ADD ON'S Wire insertion Radial (right) Radial Art. Equipment Time Metal Bonding Press Operator Description Size Mfg Part Number Used/Scraped COPILOT VALVE, BLEEDBACK [id number] 15:55 [employer] Used CONTROL *[id number] TRANSDUCER, TRUWAVE [id number] 15:47 BARRETO GOMEZ * Used W/STOCKCOCK *[id number] 15:55 [employer], SAMURAI 190CM 190CM Used *[id number] *[id number] *[id number] *[id number] 15:47 [employer] [place] [employer] BLANKET,WARM AIR CCL * Used *[id number] 15:47 [employer] [place] [employer] PACK, CCL CUSTOM * Used *[id number] 15:47 [employer] [place] [employer] SUPPORT, ARTERIAL ADULT 91182 *[id number] Used [id number] 16:01 [employer] BALLOON, 4.0 X 30MM EUPHORA 30MM Used *[id number] 15:48 [employer] JR 5.0 DXTERITY CATHETER fr 5 [id number] Used [id number] 15:56 [employer] 30 MALCOM INDEFLATOR Used *[id number] BAND, RADIAL COMPRESSION TR [id number] 16:16 [employer] 24CM Used SHORT 24 *[id number] SHEATH, FR6 RADIAL PRELUDE 15:47 [employer] FR 6 [id number] Used EASE 11CM [id number] 15:47 [employer] WIRE, EXCHANGE 260CM 3MMJ 260CM Used *[id number] 15:47 NAMIC MANIFOLD, 4 PORT * Used *[id number] 15:47 [employer]COM[employer] OMNIPAQUE, 350 MG, 150ML 150ML [id number] Used 15:56 [employer] OMNIPAQUE, 350 MG, 50ML 50ML [id number] Used Equipment Model, Serial, Lot Number and Expiration Data Description Model Number Serial Number Lot Number Expiration Date AUDREY MANCIA [id number] 02-05-2020 History: Current Medications Medication Dosage/Unit Route Frequency Last Date/Time Taken ASA HEPARIN History: Risk Factors Family History of Hypertension Dyslipidemia Previous [place] Previous Heart Failure Premature CAD No No No No No Prior Valve Prior PCI Prior CABG Surgery No No No Cerebrovascular Peripheral Artery Chronic Lung On Dialysis Diabetes Disease Disease Disease No No No Yes No History: Stress Tests Stress or Imaging Studies Performed No Labs Hgb (g/dl) Hct (%) WBC (l/cumm) Platelets (thousands) 11.60-17.00 35.00-51.00 4.00-11.00 150.00-450.00 12.2 36.1 9.5 450 BUN (mg/dl) Creatinine (mg/dl) BUN:Creatinine (1:x) 7.00-18.00 0.50-1.30 10.00-20.00 12 1.0 12 Na (meq/l) K (meq/l) Cl (meq/l) CO2 (mmol/L) Ca (mg/dl) 136.00-145.00 3.50-5.10 98.00-107.00 21.00-32.00 8.50-10.10 140 4.8 108 27.2 8.9 INR (PTT:PT) 0.90-1.10 1 Troponin I (ng/ml) CPK (u/l) CPK-MB (ng/ML) 0.02-0.05 26.00-308.00 0.50-3.60 0.5 101 1.9 Medication Medication Total Dose (Bolus/Oral) Medication Total Dosage/Unit 1% XYLOCAINE 20 mL ANGIOMAX BOLUS 12 mL FENTANYL 75 mcg HEPARIN 3000 units OXYGEN 2 l/min PLAVIX 600 mg RADIAL COCKTAIL 5 mL (Bolus) VERSED 3 mg Medications (Bolus/Oral) Medication Time Given Dosage/Unit Administered By Reason VERSED 03/26/2018 3:42:31 PM 2 mg Sunday Rubi 2 mg VERSED given in lab by Sunday Rubi, RN via Peripheral IV. FENTANYL 03/26/2018 3:43:36 PM 50 mcg Sunday Rubi 50 mcg FENTANYL given in lab by Sunday Rubi RN via Peripheral IV. 1% XYLOCAINE 03/26/2018 3:44:35 PM 20 mL Jamari Mckeon 20 mL 1% XYLOCAINE given in lab by Jamari Mckeon in Right Radial via Subcutaneous. HEPARIN 03/26/2018 3:45:00 PM 3000 units Sunday Rubi 3000 units HEPARIN given in lab by Sunday Rubi RN via Peripheral IV. Ntg 200mcg Verapamil 2.5mg Heparin RADIAL COCKTAIL 03/26/2018 3:45:40 PM 5 mL (Bolus) Sunday Rubi 2500U 5 mL (Bolus) RADIAL COCKTAIL given in lab by Sunday Rubi RN via Radial. Using [Solution Name]. Cayla son: Ntg 200mcg Verapamil 2.5mg Heparin 2500U. VERSED 03/26/2018 3:46:44 PM 1 mg Sunday Rubi 1 mg VERSED given in lab by Sunday Rubi RN via Peripheral IV. FENTANYL 03/26/2018 3:47:49 PM 25 mcg Sunday Rubi 25 mcg FENTANYL given in lab by Sunday Rubi RN via Peripheral IV. OXYGEN 03/26/2018 3:54:54 PM 2 l/min Sunday Rubi 2 l/min OXYGEN given in lab by Sunday Rubi RN via Nasal. ANGIOMAX BOLUS 03/26/2018 3:59:43 PM 12 mL Sunday Rubi 12 mL ANGIOMAX BOLUS given in lab by Sunday Rubi RN via Peripheral IV. PLAVIX 03/26/2018 4:25:37 PM 600 mg Sunday Rubi 600 mg PLAVIX given in lab by Sunday Rubi RN via Oral. Medication (Drip) Medication Time Given Dosage/Unit Concentration/Unit Diluent (ml) Solution ANGIOMAX DRIP 03/26/2018 4:00:01 PM 1.753 mg/kg/hr 250 mg 50 NaCl .9 1.753 mg/kg/hr ANGIOMAX DRIP given in lab by Sunday Rubi RN via Peripheral IV. Pump/Drip Flow = 27 .7 ml/hr using NaCl .9 with a concentration of 250 mg in 50 ml. IV Solutions 03/26/2018 3:38:43 PM 0 mL (IV) 500 NaCl .9 IV Solutions given in lab by Burfield, Sunday, RN in Left Antecubital via Peripheral IV. Pump/Drip Flow = 20 ml/hr using NaCl .9. Initial Case Assessment Cardiovascular HR Rhythm NIBP Chest Pain 60 reg 140/91 0 Edema Present Skin color Skin None Normal Warm Circulatory - Right Pulses Femoral Radial 2 2 Scale (0,1,2,3,4,d) Scale (0,1,2,3,4,d) Circulatory - Lower Extremities Color Lower Right Normal Neurological State Oriented to time-place- Alert Moves all extremities person Respiration - General Respiration Rate SpO2 (%) O2 (lpm) (B/min) 25 98 0 Final Case Assessment Cardiovascular HR Rhythm NIBP Chest Pain 71 reg 141/84 0 Edema Present Skin color Skin None Normal Warm Circulatory - Right Pulses Dorsalis Pedis Femoral Radial 2 2 2 Scale (0,1,2,3,4,d) Scale (0,1,2,3,4,d) Circulatory - Lower Extremities Color Lower Right Normal Neurological State Oriented to time-place- Alert Moves all extremities person Respiration - General Respiration Rate SpO2 (%) O2 (lpm) (B/min) 12 99 2 Chronological Log Time Study Chronological Log 15:20:40 Patient arrived via Bed. 15:21:45 Patient Name, D.O.B, / Armband Verified By R.N. Vitals capture started with the following parameters, Patient=Adult, Interval=5 min, Initial Pr cmnjws=889 mmHg, 15:33:50 Deflation Rate=5 mmHg, Cuff placed on Left LOWER LEG 15:34:10 Consent signed by the physician and the patient and verified by the Employee Communications Coordinator staff. 15:34:11 Pre-op and post- op instructions given; patient acknowledges understanding of instructions. 15:34:30 HR=59 bpm, ELXV=370/68 mmhg, SpO2=98.0 %, Pain=0, Quan=10, Doshi=2 15:35:49 Reference ECG taken 15:36:59 MD arrived. 15:37:36 Verbal Stimulation=2 Physical Stimulation=2 Airway=2 Respiration=2 TOTAL=8. (0=absent, 1=li mited, 2=present) 15:37:52 Allens test performed on the right radial and ulnar artery with a positive result performed by tosin rubi 15:38:20 Patient has been NPO for More than 6Hrs. 15:38:21 Skin Breakdown-none 15:38:27 A # 20 IV was noted in the Wrist (left). Grade = 0 15:38:36 A # 20 IV was noted in the Antecubital (left). Grade = 0 IV Solutions given in lab by Sunday Rubi RN in Left Antecubital via Peripheral IV. Pump/Drip Flow = 20 ml/hr using 15:38:43 NaCl .9. 15:39:00 History and physical on the chart or being dictated. Assessment: Initial Case, HR=60 BPM, Rhythm=reg, DMPL=970/91 mmhg, Chest Pain=0, Edema=None, [place] sheila=Normal, Skin = Warm Right Pulses: Femoral=2, Radial=2 15:39:01 Lower Right Extremities: Color=Normal Neurological: State=Alert, Ox3, RAZO Respiration: Resp=25 B/min, SpO2=98 %, O2=0 lpm 15:39:29 HR=66 bpm, HGDE=765/91 mmhg, SpO2=98.0 %, Pain=0, Quan=10, Doshi=2 15:39:48 Right Radial and groin(s) prepped with 2% chlorhexidine, and draped after a 3 min. waiting time. Time Out. Correct patient, correct procedure, correct physician, labs, allergies, and equipment verified with mobile home laborer 15:42:24 team present. Fire risk assesment completed (see hard stop sheet for coding). Time Out Conc urred by MD and individual staff in procedure. 15:42:31 2 mg VERSED given in lab by Sunday Rubi RN via Peripheral IV. 15:42:41 Case Start 15:43:36 50 mcg FENTANYL given in lab by Sunday Rubi RN via Peripheral IV. 15:44:30 HR=61 bpm, QSKR=760/68 mmhg, SpO2=92.0 %, Pain=0, Quan=10, Doshi=2 15:44:35 20 mL 1% XYLOCAINE given in lab by Jamari Mckeon in Right Radial via Subcutaneous. 15:45:00 3000 units HEPARIN given in lab by Sunday Rubi RN via Peripheral IV. 5 mL (Bolus) RADIAL COCKTAIL given in lab by Sunday Rubi RN via Radial. Using [Solution Name ]. Reason: Ntg 15:45:40 200mcg Verapamil 2.5mg Heparin 2500U. 15:46:44 1 mg VERSED given in lab by Sunday Rubi RN via Peripheral IV. 15:47:49 25 mcg FENTANYL given in lab by Sunday Rubi RN via Peripheral IV. 15:48:15 Access site was Right Radial Artery . 15:48:20 A WIRE, EXCHANGE 260CM 3MMJ 260CM was inserted via Radial (right). A SHEATH, FR6 RADIAL PRELUDE EASE 11CM FR 6 was advanced into the Fem Art (right) using the Per cutaneous 15:48:36 technique. A JR 5.0 DXTERITY CATHETER fr 5 was advanced over a wire. OMNIPAQUE, 350 MG, 150ML 150ML was us ed for 15:48:42 injections. 15:49:14 Pressure channel 1 zeroed. 15:49:31 HR=75 bpm, NUVB=375/60 mmhg, SpO2=89.0 %, Pain=0, Quan=10, Doshi=2 15:50:08 The RCA was injected and visualized at various angles. OMNIPAQUE, 350 MG, 150ML 150ML used . After removing the current catheter a JL 3.5 INFINITI CATHETER FR 5 was advanced over a WIRE, E XCHANGE 260CM 15:50:50 3MMJ 260CM. 15:52:14 The LCA was injected and visualized at various angles. OMNIPAQUE, 350 MG, 150ML 150ML used . After removing the current catheter a JR 4.0 GUIDE CATHETER FR 6 was advanced over a WIRE, EXCH [place] 260CM 15:53:12 3MMJ 260CM. 15:54:32 HR=81 bpm, QZDD=918/61 mmhg, SpO2=91.0 %, Pain=0, Quan=10, Doshi=2 15:54:54 2 l/min OXYGEN given in lab by Sunday Rubi RN via Nasal. 15:55:27 A AUDREY MANCIA 190CM 190CM was inserted via Radial (right). 15:55:37 OMNIPAQUE, 350 MG, 50ML 50ML and 30 MALCOM INDEFLATOR added. 15:59:27 HR=83 bpm, VHJP=501/64 mmhg, SpO2=97.0 %, Pain=0, Quan=10, Doshi=2 15:59:43 12 mL ANGIOMAX BOLUS given in lab by Sunday Rubi RN via Peripheral IV. 1.753 mg/kg/hr ANGIOMAX DRIP given in lab by Sunday Rubi RN via Peripheral IV. Pump/Drip Christopher w = 27.7 ml/hr 16:00:01 using NaCl .9 with a concentration of 250 mg in 50 ml. 16:00:58 Interventional wire has crossed the lesion 16:01:18 Disposable defibrillator pads placed on sternum and apex. Skin integrity intact. 16::46 A BALLOON, 4.0 X 30MM EUPHORA 30MM was inserted over WIRE, SAMURAI 190CM 190CM via the RCA Mid. A BALLOON, 4.0 X 30MM EUPHORA 30MM over a WIRE, SAMURAI 190CM 190CM in the RCA Mid was inflated using a :: 30 MALCOM INDEFLATOR at 8 malcom for 22 sec. A BALLOON, 4.0 X 30MM EUPHORA 30MM over a WIRE, SAMURAI 190CM 190CM in the RCA Mid was inflated using a 16:03:12 30 MALCOM INDEFLATOR at 10 malcom for 12 sec. A BALLOON, 4.0 X 30MM EUPHORA 30MM over a WIRE, SAMURAI 190CM 190CM in the RCA Prox was inflate d using a 16:03:38 30 MALCOM INDEFLATOR at 10 malcom for 7 sec. 16:03:56 Balloon Removed. 16:04:28 HR=66 bpm, MKQN=196/65 mmhg, SpO2=98.0 %, Pain=0, Quan=10, Doshi=2 A implantable was advanced through a JR 4.0 GUIDE CATHETER FR 6 over a WIRE, SAMURAI 190CM 190C M. 16:05:10 [id number] [employer] lot#[id number] 16:10:08 HR=78 bpm, UUVQ=521/83 mmhg, SpO2=98.0 %, Pain=0, Quan=10, Doshi=2 16:10:26 A implantable was deployed using a 30 MALCOM INDEFLATOR at 16 atmospheres for 16 seconds in th e RCA Mid. : Delivery device removed ::46 A implantable was advanced through a JR 4.0 GUIDE CATHETER FR 6 over a WIRE, SAMURAI 190CM 190CM. A implantable was deployed using a 30 MALCOM INDEFLATOR at 16 atmospheres for 12 seconds in the RC A Prox. 16:10:56 [id number] [employer] lot#[id number] 16:13:20 Delivery device removed 16:13:38 Wire removed 16:13:41 Catheter was removed 16:13:55 Case End (Physician broke scrub) 16:14:34 HR=77 bpm, LKOU=862/84 mmhg, SpO2=98.0 %, Pain=0, Quan=10, Doshi=2 Assessment: Final Case, HR=71 BPM, Rhythm=reg, UCYJ=964/84 mmhg, Chest Pain=0, Edema=None, [place] r=Normal, Skin = Warm Right Pulses: Liborio Ped=2, Femoral=2, Radial=2 16:15:09 Lower Right Extremities: Color=Normal Neurological: State=Alert, Ox3, RAZO Respiration: Resp=12 B/min, SpO2=99 %, O2=2 lpm 16:15:38 Catheter(s) removed without difficulty Radial Compression Device Used. 15 mLs of air placed in BAND, RADIAL COMPRESSION TR SHORT 24 24 CM. Affected 16:15:40 hand 99 % O2 saturation. 16:19:31 HR=77 bpm, ZJPY=917/89 mmhg, SpO2=98.0 %, Pain=0, Quan=10, Doshi=2 16:24:32 EBWR=667/90 mmhg, Pain=0, Quan=10, Doshi=2 16:25:37 600 mg PLAVIX given in lab by Sunday Rubi, RN via Oral. 16:27:04 Vitals capture stopped. 16:28:14 pt going to DOCU for recovery and observation End Study - Contrast Media Used In Study Contrast Total Opened (mL) Total Used (mL) Total Wasted (mL) Omnipaque 80 80 0 End Study - Maximum Contrast Load Max Contrast Load (mL) 395.0 End Study - Radiation Exposure Fluoro Time (minutes) 3.3 End Study - Sheaths Sheaths Pulled By Sheath Hold Time (min) Dimitry Diggs End Study - Patient Disposition Complications Transferred To Interventional Outcome No Regular Bed successful
--- NOTE | 2018-03-27 07:44 | P.PNCA ---
Subjective Interval history: Telemetry with no significant arrhythmias noted overnight. No significant issues with right wrist access site. No chest pain or shortness of breath. Physical Exam Vital signs: Vital Signs 03/26/18 08:00 03/26/18 16:37 03/26/18 18:19 Temperature 97.8 F 98.2 F Pulse Rate 62 75 Respiratory Rate 18 20 Blood Pressure 118/73 148/75 H Pulse Oximetry 95 94 L 96 03/26/18 18:20 03/26/18 19:00 03/26/18 20:00 Temperature 97.8 F Pulse Rate 66 75 72 Respiratory Rate 16 Blood Pressure 136/76 Pulse Oximetry 95 03/26/18 21:00 03/26/18 22:00 03/26/18 23:00 Temperature Pulse Rate 72 78 79 Respiratory Rate Blood Pressure 122/68 111/67 Pulse Oximetry 03/27/18 00:00 03/27/18 01:00 03/27/18 02:00 Temperature 98.3 F Pulse Rate 72 78 62 Respiratory Rate 16 Blood Pressure 118/63 Pulse Oximetry 95 03/27/18 03:00 03/27/18 04:00 03/27/18 05:00 Temperature 98 F Pulse Rate 62 88 86 Respiratory Rate 20 Blood Pressure 134/76 Pulse Oximetry 95 03/27/18 06:00 Temperature Pulse Rate 84 Respiratory Rate Blood Pressure Pulse Oximetry Intake & Output 03/26/18 03/27/18 03/27/18 18:59 06:59 18:59 Intake Total 0 / 0 720 / 720 Output Total 0 / 0 800 / 800 Balance 0 / 0 -80 / -80 Weight 171 lb 15.369 oz Intake: IV 0 / 0 Oral 0 / 0 720 / 720 Output: Urine 0 / 0 800 / 800 Other: Date of Last Bowel Movement 03/24/18 # Bowel Movements 0 0 Narrative: GENERAL: Well-developed well-nourished. In no acute distress. NECK: No carotid bruits. No JVD. CARDIOVASCULAR: Regular rate and rhythm. No murmur appreciated. RUE radial/ ulnar pulses 2+. RESPIRATORY: No accessory muscle use. Clear to auscultation. Breath sounds equal bilaterally. MUSCULOSKELETAL: No clubbing or cyanosis. No edema. NEUROLOGICAL: Awake and alert. Normal speech. Assessment and Plan - Plan 53-year-old female with past medical history of asthma, arthritis who presented with chest pain. For the past 6 months or so she has been having midsternal chest pain that has been increasing in severity since that time. Has been having chest pain recently several times per week lasting up to 10 minutes. Chest pain is relieved by aspirin and deep breathing. Current smoker. No known family history of heart disease. EKG shows no nonspecific T-wave inversions anteriorly and inferiorly when compared to previous EKG 2014. Troponins 0.25, 0.50. NSTEMI: [facility] 03/26 with PCI SEAN RCA. Cont asa plavix bb statin. Tobacco cessation Discharge planning
[2018-03-27] MEDS: Budesonide-Formoterol 160/4.5 MCG 6 GM Inhaler INH SCH (08:22)
[2018-03-27 08:34] VITALS: BP 141/79; PULSE 78; RESP 18; TEMP 97.8; O2SAT 98
--- NOTE | 2018-03-27 22:15 | ECG ---
Date Performed: 03/24/2018 Time Performed: 00:23:14 PTAGE: 53 years EKG: Sinus rhythm . Poor R wave progression - probable normal variant Extensive ST-T changes Abnormal ECG PREVIOUS TRACING : 03/23/2018 22.15 Since the previous tracing, no significant change noted DOCTOR: Lyndon Wood Interpretating Date/Time 03/27/2018 22:13:19
--- NOTE | 2018-04-04 10:08 | P.DS ---
Date of admission: 03/23/18 23:11 Primary care physician: Pepe Flores Anticipated date of discharge: 03/27/18 Brief History from admission: Pt presented with chest pain, worsening acide reflux and bloody stool. DS: Diagnosis - Discharge Diagnosis (1) Acute non-ST elevation myocardial infarction (NSTEMI) Status: Acute DS: Medications - Discharge Medications Prescriptions: aspirin 81 mg PO DAILY #120 tab atorvastatin 40 mg PO HS #30 tab clopidogrel [Plavix] 75 mg PO DAILY #30 tab metoprolol succinate 25 mg PO DAILY #30 tab pantoprazole [Protonix] 40 mg PO DAILY #30 tab DS: Summary Hospital Course: (1) Acute non-ST elevation myocardial infarction (NSTEMI) Code(s): I21.4 - Non-ST elevation (NSTEMI) myocardial infarction Status: Acute Plan: NSTEMI: Rectal Bleed GERD LHC: severe RCA dz 95% prox/mid. SEAN x 2 EGD/Colonoscopy:Duodenitis duodenal bulb-biopsy. Gastritis antrum-biopsy. Hiatal hernia Diverticulosis sigmoid,descending. Polyp sessile sigmoid-8 mm-hot snare polypectomy, biopsy of base. Multiple sessile polyps in rectosigmoid, 5-7 mm-cold snare polypectomy for 4 of them , rest approximately 6 -ablation with tip of snare. Internal hemorrhoids thermal destruction using tip of snare Internal and external hemorrhoids. discussed with cardiology. OK to dc home on bb/asa/plavix/statin on 03/26...dc held by staff...?reason..dc today. f/u GI for bx results. - Time Spent with Patient Total time spent providing and/or coordinating discharge services: Greater than 30 minutes - Quality: VTE Deep Vein Thrombosis/Pulmonary Embolism Present on Admission: No Exam Vital signs: heart reg lung cta abd /snt ext no edema Results Procedures completed during hospitalization: egd colonoscopy C ct a/p Completed studies during hospitalization: Pending at discharge 03/25/18 12:23 Surgical [PTH] Routine - Impressions ITS Impressions Chest X-Ray 03/23/18 22:01 CONCLUSION: Very mild bibasilar atelectasis. Mild pleural and parenchymal scarring versus very small pleural effusion at the left base. Abdomen/Pelvis CT 03/24/18 00:00 CONCLUSION: 1. No acute findings within the abdomen.. 2. Small left effusion with mild left basilar airspace disease. Etiology unclear on this exam. 3. Colonic diverticulosis without evidence for diverticulitis. Discharge Plan - Discharge Disposition Patient Disposition: 01 Discharge Home - Discharge Condition Condition: Stable - Discharge Order Discharge Orders: Discharge Order (Routine); Ordered 03/26/18 Ordered By: Donta Pinon - Discharge Details Anticipated Discharge Date: 03/26/18 Discharge Comment: dc pt home tonight after recovery orders complete from [facility] and pt safely ambulates. If she doesn't want to go or she is unstable the keep her overnight. - Physicians Team Primary Care Provider: Pepe Flores Attending Provider: Donta Pinon Other Providers: Wing José Miguel Llamas MD ; Lisa Chacko MD
== END 2018-03-27 08:46 | disposition home or self-care (01) ==
LOC: NEPE 21:19 → NEDA 23:11 → INTOOBSV 23:11 → N04 23:52 → HCIS 03-26 17:38 → HCPC 03-26 18:01
PROVIDERS: ADMIT Hospitalist; ATTEND Hospitalist
PROC: PANENDO (2018-03-25 09:48)
PROC: COLONOS (2018-03-25 09:48)
DX: M06.9 Rheumatoid arthritis, unspecified; I25.10 Atherosclerotic heart disease of native coronary artery without angina pectoris; K64.4 Residual hemorrhoidal skin tags; K44.9 Diaphragmatic hernia without obstruction or gangrene; K64.8 Other hemorrhoids; J45.909 Unspecified asthma, uncomplicated; J98.11 Atelectasis; K57.30 Diverticulosis of large intestine without perforation or abscess without bleeding; K29.80 Duodenitis without bleeding; D12.7 Benign neoplasm of rectosigmoid junction; R07.9 Chest pain, unspecified; F17.210 Nicotine dependence, cigarettes, uncomplicated; I21.4 Non-ST elevation (NSTEMI) myocardial infarction; K92.1 Melena; K21.9 Gastro-esophageal reflux disease without esophagitis

== ENCOUNTER 2018-06-03 18:21 | Inpatient (IN) ==
[2018-06-03] MEDS ORDERED: Morphine Inj 4 MG/ML Vial IV.PUSH ONE (18:48)
[2018-06-03 19:07] LABS: Baso # (Auto) 0.1 th/mm3 (0.0-0.2); Baso % (Auto) 1.2 % (0.0-2.0); Eos # (Auto) 0.3 th/mm3 (0.0-0.4); Eos % (Auto) 3.5 % (0.0-4.0); Hematocrit 36.5 % (35.0-46.0); Hemoglobin 12.2 gm/dL (11.6-15.3); Lymph # (Auto) 2.4 th/mm3 (1.0-4.8); Lymph % (Auto) 26.8 % (9.0-44.0); Mean Corpuscular HGB Conc 33.5 % (32.0-36.0); Mean Corpuscular Hemoglobin 28.1 pg (27.0-34.0); Mean Corpuscular Volume 83.9 fL (80.0-100.0); Mean Platelet Volume 7.7 fL (7.0-11.0); Mono # (Auto) 0.5 th/mm3 (0.0-0.9); Mono % (Auto) 5.4 % (0.0-8.0); Neut # (Auto) 5.7 th/mm3 (1.8-7.7); Neut % (Auto) 63.1 % (16.0-70.0); Platelet Count 372 th/mm3 (150-450); Red Blood Count 4.35 mil/mm3 (4.00-5.30); Red Cell Distribution Width 18.2 % (11.6-17.2)
--- NOTE | 2018-06-03 19:15 | XR ---
EXAM DATE: 06/03/2018 6:40 PM EDT AGE/SEX: 53 years / Female INDICATIONS: Right side chest pain. CLINICAL DATA: This is the patient's initial encounter. Patient reports that signs and symptoms have been present for 1 day and indicates a pain score of 10/10. MEDICAL/SURGICAL HISTORY: Cardiovascular disease. . Cardiac stents COMPARISON: C, CHEST 1V SINGLE AP, 03/23/2018. . FINDINGS: Small left effusion and mild basilar airspace disease, stable to slightly improved March 23. Heart si ze upper limits normal. No pneumothorax. CONCLUSION: Small left effusion with mild basilar opacity stable to slightly improved from March 23. Electronically signed by: Solis Bashir MD 06/03/2018 7:14 PM EDT
[2018-06-03 20:00] LABS: Alanine Aminotransferase 88 U/L (10-53); Alkaline Phosphatase 120 U/L (45-117); Total Protein 7.3 g/dL (6.4-8.2)
[2018-06-03 20:22] LABS: Albumin 3.4 g/dL (3.4-5.0); Anion Gap 11 meq/L (5-15); Aspartate Aminotransferase 137 U/L (15-37); Blood Urea Nitrogen 17 mg/dL (7-18); Calcium 8.7 mg/dL (8.5-10.1); Carbon Dioxide 19.9 meq/L (21.0-32.0); Chloride 108 meq/L (98-107); Glomerular Filtration Rate 47 mL/min (>89); Glucose,Random 99 mg/dL (74-106); Sodium 139 meq/L (136-145)
[2018-06-03 20:23] LABS: Potassium 3.9 meq/L (3.5-5.1)
[2018-06-03] MEDS ORDERED: predniSONE 20 MG Tablet PO ONE (20:44)
--- NOTE | 2018-06-03 21:01 | CT ---
EXAM DATE: 06/03/2018 8:30 PM EDT AGE/SEX: 53 years / Female INDICATIONS: Upper abdomen pain today. CLINICAL DATA: This is the patient's initial encounter. Patient reports that signs and symptoms have been present for 1 day and indicates a pain score of 8/10. MEDICAL/SURGICAL HISTORY: Asthma. Hysterectomy. ORAL CONTRAST: No oral contrast ingested. RADIATION DOSE: 8.9 CTDI (mGy) COMPARISON: No prior exams available for comparison. TECHNIQUE: Multiple contiguous axial images were obtained through the abdomen and pelvis following b olus infusion of 75 ml Omnipaque 350 (iohexol) nonionic water-soluble contrast as a single exam dos e. No oral contrast ingested. Using automated exposure control and adjustment of the mA and/or kV ac cording to patient size, radiation dose was kept as low as reasonably achievable to obtain optimal di agnostic quality images. DICOM format image data is available electronically for review and comparis on. FINDINGS: Lower Lungs: There is increased density at the posterior lower lungs bilaterally being more prominent on the right. There is a minimal right pleural effusion. Liver: There is diffuse decreased attenuation to the liver. There is a 0.9 cm hypodensity seen at the inferior aspect of the medial segment the left lobe of the liver adjacent to the gallbladder fossa. This is nonspecific. Calcified gallstones are not seen. The common bile duct appears dilated at 1.4 c m. Spleen: There is a 0.4 cm hypodensity seen in the central aspect of the spleen. The spleen is otherw ise normal. Pancreas: Unremarkable without mass or calcification. Kidneys: Normal in size and shape. No evidence of hydronephrosis. There is a 0.6 cm hypodense mass s een at the posterior mid left kidney. Adrenal Glands: Unremarkable. Aorta: There are scattered atherosclerotic calcification seen throughout the arterial system. No an eurysm is seen. Bowel/Mesentery: Colonic diverticula are seen without significant inflammatory change. Abdominal Wall: Intact. Retroperitoneum: No evidence of adenopathy in the retrocrural, para-aortic, or deep pelvic regions. Bladder: Contours are smooth. Reproductive Organs: The patient is status post hysterectomy. Inguinal: The inguinal region is unremarkable without evidence of adenopathy. Bony Structures: Unremarkable. CONCLUSION: 1. Dilatation the common bile duct. The cause is not clearly seen. 2. Increased density at the bases being more prominent on the right with a minimal right pleural eff usion. 3. Scattered colonic diverticula. 4. 0.9 cm hypodensity in the left lobe of the liver adjacent to gallbladder fossa. This is nonspecif ic. Statistically, this most likely represent a cyst or hemangioma. 5. 0.6 cm hypodense mass in the posterior aspect of the left mid kidney likely related to a cyst. 6. Nonspecific 0.4 cm hypodensity within the central to the spleen. The most common mass at this mariaa earance would be a hemangioma. Electronically signed by: Km Kim MD 06/03/2018 8:59 PM EDT
--- NOTE | 2018-06-03 21:41 | ED ---
HPI General Chief Complaint: Chest Pain Stated Complaint: Cardiac Time Seen by Provider: 06/03/18 18:40 Source: patient Mode of arrival: ambulatory Limitations: no limitations History of Present Illness HPI narrative: 53-year-old female with PMH as CAD s/p recent stenting, COPD, HTN , on Plavix presents the ED for evaluation of sudden onset epigastric pain. Rated 10/10 radiating into bilateral upper quadrants and around into the back. Onset at rest. No alleviating or exacerbating factors reported. Patient reports accompanying nausea. This onset about 445 this afternoon. She states that she had eaten a handful of nuts about an hour earlier. She endorses chronic shortness of breath secondary to COPD. She endorses occasional nonproductive cough. She denies fever, chills, chest pain, palpitations, changes in bowel habits, melena, hematochezia, dysuria, back pain. She is a current smoker. She endorses history of hysterectomy. No treatment attempted before arrival. Related Data Home Medications Medication Instructions Recorded Confirmed albuterol sulfate [Ventolin HFA] 90 mcg INHALATION Q4-6H 03/24/18 06/03/18 leflunomide 20 mg PO DAILY 03/24/18 06/03/18 metoprolol succinate [Toprol XL] 25 mg PO DAILY 06/03/18 06/03/18 Previous Rx's Medication Instructions Recorded aspirin 81 mg PO DAILY #120 tab 03/26/18 atorvastatin 40 mg PO HS #30 tab 03/26/18 clopidogrel [Plavix] 75 mg PO DAILY #30 tab 03/26/18 pantoprazole [Protonix] 40 mg PO DAILY #30 tab 03/26/18 Allergies Allergy/AdvReac Type Severity Reaction Status Date / Time cat dander Allergy Severe Shortness Verified 03/23/18 21:44 of Breath tree and shrub pollen Allergy Severe Shortness Verified 03/23/18 21:44 of Breath *MDRO Multi-Drug Resistant AdvReac Unknown Itching Uncoded 03/23/18 21:44 Organism Review of Systems ROS: all other systems reviewed are negative [facility] Medical History Medical History Asthma (Acute) History of hysterectomy (Acute) Family History Family History Other No history of heart disease Social History Social History Substance History: No History of Abuse Second Hand Smoke Exposure: Yes Smoking Status: Current every day smoker Tobacco Type: Cigarettes How Often Do You Have a Drink Containing Alcohol: 4 or more times a week Recent Travel in [facility] within the Last 8 Weeks: No Recent Out of Country Travel within the Last 8 Weeks: No Immunization History Tetanus Immunization: Unsure Exam Narrative Exam Narrative: GENERAL: Well-nourished, well-developed, nontoxic-appearing white female in no acute distress. SKIN: Focused skin assessment warm/dry. HEAD: Atraumatic. Normocephalic. EYES: Pupils equal and round. No scleral icterus. No injection or drainage. ENT: No nasal bleeding or discharge. Mucous membranes pink and moist. NECK: Trachea midline. No JVD. CARDIOVASCULAR: Regular rate and rhythm. No murmur appreciated. RESPIRATORY: No accessory muscle use. Clear to auscultation. Breath sounds equal bilaterally. GASTROINTESTINAL: Abdomen soft, nondistended. Tender to palpation in the epigastric area and right upper quadrant. Active bowel sounds. No CVA tenderness. MUSCULOSKELETAL: No obvious deformities. No clubbing. No cyanosis. No edema. NEUROLOGICAL: Awake and alert. No obvious cranial nerve deficits. Motor grossly within normal limits. Normal speech. PSYCHIATRIC: Appropriate mood and affect; insight and judgment normal. Course Initial Documented Vital Signs Temperature 98.9 F 06/03/18 18:31 Pulse Rate 84 06/03/18 18:31 Respiratory Rate 17 06/03/18 18:31 Blood Pressure 171/80 H 06/03/18 18:31 Pulse Oximetry 100 06/03/18 18:31 Last Documented Vital Signs Temperature 98.9 F 06/03/18 18:31 Pulse Rate 83 06/03/18 20:54 Respiratory Rate 16 06/03/18 20:54 Blood Pressure 171/80 H 06/03/18 18:31 Pulse Oximetry 98 06/03/18 19:19 Clinical Decision Support HEART Score Questions History: Slightly suspicious EKG: Non-specific repolarization disturbance Age: 45-64 years Risk Factors: 3 or more Risk Factors or Hx of Atherosclerotic Disease Initial Troponin: Normal Limit Heart Score HEART Score: 4 4 Medical Decision Making BHARAT Attestation BHARAT supervised visit: Yes Attestation: I was present with the advanced practitioner during the management of this patient. I discussed the case with the advanced practitioner and agree with the findings and plan as documented in their note except as noted below. 53yF presenting with abdominal pain. The patient states that she was sitting at a table this evening when she began to have sudden-onset "aching" epigastric pain which radiates to her bilateral upper quadrants (worse on right), constant , worse with any movement, associated with nausea. Denies lightheadedness/ dizziness, diaphoresis, chest pain, cough, or dyspnea. She has a history of CAD s/p 2 SEAN in March of this year, says that this pain is not similar to her anginal pain. She does not wish to stay for chest pain center observation but says that she will stay for 2nd troponin and will make a follow up appointment with her post anesthesia care unit nurse this week. Well-appearing, no acute distress NCAT, PERRL Trachea midline Regular rate and rhythm Lungs clear bilaterally Abdomen soft, mild RUQ tenderness, (+) Leblanc's sign No lower extremity edema No rashes or lesions A&Ox3, no focal deficits Appropriate affect A/P: 53yF presenting with abdominal pain EKG/monitor Labs CT scan/ RUQ US CXR MDM Narrative Medical decision making narrative: 53 YO F with PMH of CAD, recent stenting, on Plavix presents to the ED for evaluation of sudden onset epigastric pain, radiation across the abdomen, right> left. Pain is associated with mild nausea. Vitals reviewed. Afebrile, pulse in the 80s on presentation. Physical exam reveals tenderness to the epigastric and right upper quadrant areas. IV was established. Patient was administered morphine, Zofran and a liter normal saline. No leukocytosis on the CBC. CMP reveals elevated LFTs with normal bilirubin. No acute changes on the EKG, troponin negative x2. CT the abdomen reveals dilated common bile duct. Right upper quadrant ultrasound reveals cholelithiasis, pericholecystic fluid. Discussed the case with Dr. Ortiz who recommends admission, GI consult and will see the patient tomorrow. We administered the patient a dose of Flagyl and Cipro. Dr. Munoz spoke with Dr. Mcpherson who agrees to accept the patient to the medicine service. Please see their notes for disposition. Medical Screen Exam Complete: Yes Emergency Medical Condition: Yes Differential Diagnosis Differential Diagnosis: Cholecystitis versus pancreatitis versus gastritis versus GERD versus less likely ACS versus other Lab Data Result diagrams: 06/03/18 18:50 06/03/18 18:50 Lab Results 06/03/18 06/03/18 06/03/18 Range/Units 18:50 18:50 18:50 WBC 9.0 (4.0-11.0) th/mm3 RBC 4.35 (4.00-5.30) mil/mm3 Hgb 12.2 (11.6-15.3) gm/dL Hct 36.5 (35.0-46.0) % MCV 83.9 (80.0-100.0) fL MCH 28.1 (27.0-34.0) pg MCHC 33.5 (32.0-36.0) % RDW 18.2 H (11.6-17.2) % Plt Count 372 (150-450) th/mm3 MPV 7.7 (7.0-11.0) fL Neut % (Auto) 63.1 (16.0-70.0) % Lymph % (Auto) 26.8 (9.0-44.0) % Beckham % (Auto) 5.4 (0.0-8.0) % Eos % (Auto) 3.5 (0.0-4.0) % Baso % (Auto) 1.2 (0.0-2.0) % Neut # (Auto) 5.7 (1.8-7.7) th/mm3 Lymph # (Auto) 2.4 (1.0-4.8) th/mm3 Beckham # (Auto) 0.5 (0.0-0.9) th/mm3 Eos # (Auto) 0.3 (0.0-0.4) th/mm3 Baso # (Auto) 0.1 (0.0-0.2) th/mm3 WBC Differential . Differential Comment Auto diff final Sodium 139 (136-145) meq/L Potassium 3.9 (3.5-5.1) meq/L Chloride 108 H (98-107) meq/L Carbon Dioxide 19.9 L (21.0-32.0) meq/L Anion Gap 11 (5-15) meq/L BUN 17 (7-18) mg/dL Creatinine 1.21 H (0.50-1.00) mg/dL Estimated GFR 47 L (>89) mL/min Random Glucose 99 (74-106) mg/dL Calcium 8.7 (8.5-10.1) mg/dL Total Bilirubin 0.4 (0.2-1.0) mg/dL AST 137 H (15-37) U/L ALT 88 H (10-53) U/L Alkaline Phosphatase 120 H (45-117) U/L Troponin I Less than 0.02 L (0.02-0.05) ng/mL Total Protein 7.3 (6.4-8.2) g/dL Albumin 3.4 (3.4-5.0) g/dL Lipase 78 (73-393) U/L Urine Color (Yellw/Straw) Urine Clarity (Clear) Urine pH (5.0-8.5) Ur Specific [place] (1.002-1.035) Urine Protein (Neg-Trace) mg/dL Urine Glucose (UA) (Negative) mg/dL Urine Ketones (Negative) mg/dL Urine Occult Blood (Negative) Urine Nitrate (Negative) Urine Bilirubin (Negative) Urine Urobilinogen (Less than 2) mg/dL Ur Leukocyte Esterase (Negative) Urine RBC (0-3) /hpf Urine WBC (0-5) /hpf Ur Squamous Epith Cells (0-5) /hpf Urine Bacteria (None) /hpf Micro UA Comment Ur Microscopic Review Urine Culture Comments 06/03/18 06/03/18 Range/Units 21:25 23:00 WBC (4.0-11.0) th/mm3 RBC (4.00-5.30) mil/mm3 Hgb (11.6-15.3) gm/dL Hct (35.0-46.0) % MCV (80.0-100.0) fL MCH (27.0-34.0) pg MCHC (32.0-36.0) % RDW (11.6-17.2) % Plt Count (150-450) th/mm3 MPV (7.0-11.0) fL Neut % (Auto) (16.0-70.0) % Lymph % (Auto) (9.0-44.0) % Beckham % (Auto) (0.0-8.0) % Eos % (Auto) (0.0-4.0) % Baso % (Auto) (0.0-2.0) % Neut # (Auto) (1.8-7.7) th/mm3 Lymph # (Auto) (1.0-4.8) th/mm3 Beckham # (Auto) (0.0-0.9) th/mm3 Eos # (Auto) (0.0-0.4) th/mm3 Baso # (Auto) (0.0-0.2) th/mm3 WBC Differential Differential Comment Sodium (136-145) meq/L Potassium (3.5-5.1) meq/L Chloride (98-107) meq/L Carbon Dioxide (21.0-32.0) meq/L Anion Gap (5-15) meq/L BUN (7-18) mg/dL Creatinine (0.50-1.00) mg/dL Estimated GFR (>89) mL/min Random Glucose (74-106) mg/dL Calcium (8.5-10.1) mg/dL Total Bilirubin (0.2-1.0) mg/dL AST (15-37) U/L ALT (10-53) U/L Alkaline Phosphatase (45-117) U/L Troponin I Less than 0.02 L (0.02-0.05) ng/mL Total Protein (6.4-8.2) g/dL Albumin (3.4-5.0) g/dL Lipase (73-393) U/L Urine Color Yellow (Yellw/Straw) Urine Clarity Hazy H (Clear) Urine pH 6.0 (5.0-8.5) Ur Specific [place] 1.056 H (1.002-1.035) Urine Protein Negative (Neg-Trace) mg/dL Urine Glucose (UA) Negative (Negative) mg/dL Urine Ketones Negative (Negative) mg/dL Urine Occult Blood Negative (Negative) Urine Nitrate Negative (Negative) Urine Bilirubin Negative (Negative) Urine Urobilinogen 2.0 H (Less than 2) mg/dL Ur Leukocyte Esterase Moderate H (Negative) Urine RBC 2 (0-3) /hpf Urine WBC 11 H (0-5) /hpf Ur Squamous Epith Cells 2 (0-5) /hpf Urine Bacteria Rare H (None) /hpf Micro UA Comment Culture indicated Ur Microscopic Review Not Reportable Urine Culture Comments Culture indicated Imaging Data Radiologist's impression: Chest X-Ray 06/03/18 18:40 CONCLUSION: Small left effusion with mild basilar opacity stable to slightly improved from March 23. Abdomen/Pelvis CT 06/03/18 18:50 CONCLUSION: 1. Dilatation the common bile duct. The cause is not clearly seen. 2. Increased density at the bases being more prominent on the right with a minimal right pleural effusion. 3. Scattered colonic diverticula. 4. 0.9 cm hypodensity in the left lobe of the liver adjacent to gallbladder fossa. This is nonspecific. Statistically, this most likely represent a cyst or hemangioma. 5. 0.6 cm hypodense mass in the posterior aspect of the left mid kidney likely related to a cyst. 6. Nonspecific 0.4 cm hypodensity within the central to the spleen. The most common mass at this appearance would be a hemangioma. Gallbladder Ultrasound 06/03/18 21:36 CONCLUSION: Cholelithiasis with focal gallbladder wall thickening and pericholecystic fluid. Cholecystitis is not excluded. In addition there is dilatation of the common duct to 10 mm. MRCP could be performed for further evaluation if clinically indicated. ECG Data Attestation: I personally reviewed and interpreted this ECG as follows: Interpretation: Rate: 82 BPM Rhythm: Sinus Gans: Normal Intervals: Normal intervals, no blocks, QTc 410 ms Q waves: V2, V3 T waves: Flattened in multiple leads ST segments: No elevations or depressions Impression: Non-specific EKG, T wave changes in inferior wall on EKG from 2017 is improved on today's EKG. Discharge Plan Discharge Disposition Patient Disposition: 30 Still Patient Physicians Team ED Provider: Kamille Kent ED Midlevel Provider: Juliat Murray Primary Care Provider: Pepe Flores Attending Provider: Donta Pinon Status ED Status: Admitted Patient
--- NOTE | 2018-06-03 23:15 | US ---
EXAM DATE: 06/03/2018 9:36 PM EDT AGE/SEX: 53 years / Female INDICATIONS: Right upper quadrant pain. CLINICAL DATA: This is the patient's initial encounter. Patient reports that signs and symptoms have been present for 1 day and indicates a pain score of 7/10. MEDICAL/SURGICAL HISTORY: None. Hysterectomy. COMPARISON: No prior exams available for comparison. MEASUREMENTS: Liver:__ 19.7 cm. Common Bile Duct:__ 10mm. FINDINGS: Liver: Increased echotexture without focal lesion or ductal dilation. Portal Vein: Hepatopedal flow seen in portal vein. Common Duct: The duct is dilated to 10 mm without evidence of stone. Gallbladder: There are gallstones within the gallbladder the largest measuring 10 mm with focal wall thickening and pericholecystic fluid. Cholecystitis is not excluded. Pancreas: The visualized portions are within normal limits Right Kidney: Normal echotexture and cortical thickness. No mass or hydronephrosis. Other: None. CONCLUSION: Cholelithiasis with focal gallbladder wall thickening and pericholecystic fluid. Cholecystitis is not excluded. In addition there is dilatation of the common duct to 10 mm. MRCP could be performed for f urther evaluation if clinically indicated. Electronically signed by: Mustapha Soliman MD 06/03/2018 11:13 PM EDT
[2018-06-03] MEDS ORDERED: Ciprofloxacin 400 MG/200 ML 400 MG/200 ML PIGGYBACK IV.SIG ONE (23:29)
[2018-06-03 23:33] LABS: Bacteria,Urine Rare /hpf; Bilirubin,Urine Negative (Negative); Clarity,Urine Hazy (Clear); Color,Urine Yellow (Yellw/Straw); Glucose,Urine (UA) Negative (Negative); Leukocyte Esterase,Urine Moderate (Negative); Nitrite,Urine Negative (Negative); Specific Gravity,Urine 1.056 (1.002-1.035); Squamous Epithelial Cell,Urine 2 /hpf (0-5)
--- NOTE | 2018-06-04 00:08 | P.HP ---
History of Present Illness Service: [facility] Adult med Primary Care Physician: Pepe Flroes Chief Complaint: right sided chest pain, RUQP History of Present Illness: 53-year-old female with PMH of CAD s/p recent stenting in Mar 2018, COPD, HTN presents the ED for evaluation of sudden onset epigastric pain. Rated 10/10 radiating into bilateral upper quadrants and around into the back but worse on right. Onset at rest. No alleviating or exacerbating factors reported, but reports it's hard to take a deep breath due to the pain. Patient reports accompanying nausea. This onset about 445 this afternoon. She states that she had eaten a handful of honey roasted nuts/trail mix about an hour earlier. She endorses chronic shortness of breath secondary to COPD. She endorses occasional nonproductive cough. She denies fever, chills, chest pain, palpitations, changes in bowel habits, melena, hematochezia, dysuria, back pain. She is a current daily smoker. She has not tried any meds for her RUQP. No vomiting. 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 This includes certification that hospital inpatient services are reasonable and necessary and in the case of services not specified as inpatient-only under 42 CFR 419.22(n), that they are appropriately provided as inpatient services in accordance to with the 2-midnight benchmark under 43 CFR 412.3(e) Review of Systems Constitutional: Reports malaise Eyes: Denies blind spots, Denies blurry vision, Denies bulging eyes, Denies change in vision, Denies double vision, Denies discharge, Denies dry eyes, Denies floaters, Denies irritation, Denies itchy eyes, Denies loss of vision, Denies pain, Denies requires corrective lenses, Denies sensitivity to light, Denies other Ears, Nose, Mouth, and Throat: Denies abnormal hearing, Denies bleeding gums, Denies bad breath, Denies change in voice, Denies dental pain, Denies difficulty swallowing, Denies dizziness, Denies dry mouth, Denies ear discharge , Denies ear pain, Denies facial pain, Denies headache(s), Denies hearing loss, Denies hoarseness, Denies lip swelling, Denies nosebleed, Denies mouth lesions, Denies mouth pain, Denies nasal congestion, Denies nasal discharge, Denies nasal obstruction, Denies nasal trauma, Denies neck lump, Denies neck pain, Denies nose pain, Denies pain with swallowing, Denies poor balance, Denies post nasal drip, Denies ringing in the ears, Denies sinus pain, Denies sinus pressure , Denies sore throat, Denies throat swelling, Denies tongue swelling, Denies other Cardiovascular: Reports chest pain, Reports chest pain at rest, Reports shortness of breath, Reports shortness of breath with activity Respiratory: Reports cough, Reports shortness of breath, Reports shortness of breath with activity Gastrointestinal: Reports abdominal pain, Reports bright, red blood in stools, Reports nausea, Denies belching, Denies black, tarry stools, Denies bloating, Denies change in bowel habits, Denies constant urge to pass stool, Denies change in stools, Denies coffee ground vomit, Denies constipation, Denies cramping, Denies difficulty swallowing, Denies excessive passing of gas, Denies feeling full early, Denies heartburn, Denies incontinent of stools, Denies loose stools, Denies pain with swallowing, Denies vomiting, Denies vomiting blood, Denies other Neurologic: Denies abnormal hearing, Denies abnormal movements, Denies abnormal speech, Denies abnormal walking, Denies behavioral changes, Denies burning sensations, Denies confusion, Denies dizziness, Denies fainting, Denies frequent falls, Denies headache(s), Denies lack of coordination, Denies localized weakness, Denies loss of vision, Denies memory loss, Denies numbness, Denies other visual disturbances, Denies radiating pain, Denies restless legs, Denies convulsions, Denies seizure-like activity, Denies sensory deficit, Denies tingling, Denies tingling/numbness/burning sensations, Denies tremor(s), Denies unsteadiness, Denies weakness, Denies other PMFSH - History History Provided By: Patient - Medical History Medical History: Medical History (Last Reviewed 06/03/18 @ 23:45 by JERROD Pruitt) Asthma History of hysterectomy - Family History Family History: Family History (Last Reviewed 06/03/18 @ 23:45 by JERROD Pruitt) Other No history of heart disease - Tobacco History Second Hand Smoke Exposure: Yes Tobacco Use In Past 30 Days: Yes Smoking Status: Current every day smoker Tobacco Type: Cigarettes - Alcohol History How Often Do You Have a Drink Containing Alcohol: 4 or more times a week - Substance Use History Substance History: No History of Abuse - Travel History Recent Travel in the [place] Within the Last 8 Weeks: No Recent Travel Out of the Country Within the Last 8 Weeks: No - Immunization History Tetanus Immunization: Unsure Medications and Allergies Active Medications: Active Medications Ciprofloxacin/Dextrose (Cipro 400 Mg/200 Ml Inj) 400 mg in 200 mls @ 200 mls/ hr IV.SIG ONCE ONE Stop: 06/04/18 00:28 Metronidazole/Sodium Chloride (Flagyl 500 Mg Inj) 100 mls @ 100 mls/hr IV.SIG ONCE ONE Stop: 06/04/18 00:28 Sodium Chloride (Ns Flush) 2 ml IV.FLUSH UNSCH PRN PRN Reason: FLUSH AFTER USING IV ACCESS Last Admin: 06/03/18 19:10 Dose: 2 ml Allergies Allergy/AdvReac Type Severity Reaction Status Date / Time cat dander Allergy Severe Shortness Verified 03/23/18 21:44 of Breath tree and shrub pollen Allergy Severe Shortness Verified 03/23/18 21:44 of Breath *MDRO Multi-Drug Resistant AdvReac Unknown Itching Uncoded 03/23/18 21:44 Organism Home Medications Medication Instructions Recorded Confirmed Type albuterol sulfate [Ventolin HFA] 90 mcg INHALATION Q4-6H 03/24/18 06/03/18 History leflunomide 20 mg PO DAILY 03/24/18 06/03/18 History metoprolol succinate [Toprol XL] 25 mg PO DAILY 06/03/18 06/03/18 History bupropion HCl (smoking deter) 150 mg PO BID 06/04/18 06/04/18 History mometasone-formoterol [Dulera] 2 puff INHALATION BID 06/04/18 06/04/18 History Exam Vital signs: Vital Signs 06/03/18 18:31 06/03/18 19:18 06/03/18 19:19 Temperature 98.9 F Pulse Rate 84 Respiratory Rate 17 Blood Pressure 171/80 H Pulse Oximetry 100 98 98 06/03/18 20:54 Temperature Pulse Rate 83 Respiratory Rate 16 Blood Pressure Pulse Oximetry Intake & Output 06/03/18 06/03/18 06/04/18 06:59 18:59 06:59 Weight 72.575 kg Narrative: GENERAL: Obese, appears uncomfortable. a/o, cooperative SKIN: Warm and dry. HEAD: Atraumatic. Normocephalic. EYES: Pupils equal and round. No scleral icterus. No injection or drainage. ENT: No nasal bleeding or discharge. Mucous membranes pink and moist. NECK: Trachea midline. No JVD. CARDIOVASCULAR: Regular rate and rhythm. no murmur RESPIRATORY: No accessory muscle use. Clear to auscultation. Breath sounds equal bilaterally. GASTROINTESTINAL: Abdomen soft, nondistended. TTP RUQ with +Leblanc's sign; BS present; Hepatic and splenic margins not palpable. MUSCULOSKELETAL: Extremities without clubbing, cyanosis, or edema. No obvious deformities. NEUROLOGICAL: Awake and alert. No obvious cranial nerve deficits. Motor grossly within normal limits. Five out of 5 muscle strength in the arms and legs. Normal speech. PSYCHIATRIC: Appropriate mood and affect; insight and judgment normal. Results - Labs CBC & Chem 7: 06/03/18 18:50 06/03/18 18:50 Labs: Laboratory Results - last 24 hr 06/03/18 06/03/18 06/03/18 18:50 18:50 18:50 WBC 9.0 RBC 4.35 Hgb 12.2 Hct 36.5 MCV 83.9 MCH 28.1 MCHC 33.5 RDW 18.2 H Plt Count 372 MPV 7.7 Neut % (Auto) 63.1 Lymph % (Auto) 26.8 [place] % (Auto) 5.4 Eos % (Auto) 3.5 Baso % (Auto) 1.2 Neut # (Auto) 5.7 Lymph # (Auto) 2.4 [place] # (Auto) 0.5 Eos # (Auto) 0.3 Baso # (Auto) 0.1 WBC Differential . Differential Comment Auto diff final Sodium 139 Potassium 3.9 Chloride 108 H Carbon Dioxide 19.9 L Anion Gap 11 BUN 17 Creatinine 1.21 H Estimated GFR 47 L Random Glucose 99 Calcium 8.7 Total Bilirubin 0.4 AST 137 H ALT 88 H Alkaline Phosphatase 120 H Troponin I Less than 0.02 L Total Protein 7.3 Albumin 3.4 Lipase 78 Urine Color Urine Clarity Urine pH Ur Specific [place] Urine Protein Urine Glucose (UA) Urine Ketones Urine Occult Blood Urine Nitrate Urine Bilirubin Urine Urobilinogen Ur Leukocyte Esterase Urine RBC Urine WBC Ur Squamous Epith Cells Urine Bacteria Micro UA Comment Ur Microscopic Review Urine Culture Comments 06/03/18 06/03/18 21:25 23:00 WBC RBC Hgb Hct MCV MCH MCHC RDW Plt Count MPV Neut % (Auto) Lymph % (Auto) [place] % (Auto) Eos % (Auto) Baso % (Auto) Neut # (Auto) Lymph # (Auto) [place] # (Auto) Eos # (Auto) Baso # (Auto) WBC Differential Differential Comment Sodium Potassium Chloride Carbon Dioxide Anion Gap BUN Creatinine Estimated GFR Random Glucose Calcium Total Bilirubin AST ALT Alkaline Phosphatase Troponin I Less than 0.02 L Total Protein Albumin Lipase Urine Color Yellow Urine Clarity Hazy H Urine pH 6.0 Ur Specific [place] 1.056 H Urine Protein Negative Urine Glucose (UA) Negative Urine Ketones Negative Urine Occult Blood Negative Urine Nitrate Negative Urine Bilirubin Negative Urine Urobilinogen 2.0 H Ur Leukocyte Esterase Moderate H Urine RBC 2 Urine WBC 11 H Ur Squamous Epith Cells 2 Urine Bacteria Rare H Micro UA Comment Culture indicated Ur Microscopic Review Not Reportable Urine Culture Comments Culture indicated - Imaging Impressions Chest X-Ray 06/03/18 18:40 CONCLUSION: Small left effusion with mild basilar opacity stable to slightly improved from March 23. Abdomen/Pelvis CT 06/03/18 18:50 CONCLUSION: 1. Dilatation the common bile duct. The cause is not clearly seen. 2. Increased density at the bases being more prominent on the right with a minimal right pleural effusion. 3. Scattered colonic diverticula. 4. 0.9 cm hypodensity in the left lobe of the liver adjacent to gallbladder fossa. This is nonspecific. Statistically, this most likely represent a cyst or hemangioma. 5. 0.6 cm hypodense mass in the posterior aspect of the left mid kidney likely related to a cyst. 6. Nonspecific 0.4 cm hypodensity within the central to the spleen. The most common mass at this appearance would be a hemangioma. Gallbladder Ultrasound 06/03/18 21:36 CONCLUSION: Cholelithiasis with focal gallbladder wall thickening and pericholecystic fluid. Cholecystitis is not excluded. In addition there is dilatation of the common duct to 10 mm. MRCP could be performed for further evaluation if clinically indicated. Caprini VTE Risk Assessment Caprini VTE Risk Assessment: Moderate/High Risk (score >= 2) Caprini Risk Assessment Model: Point Value = 1 Point Value = 2 Point Value = 3 Point Value = 5 Age 41-60 Minor surgery BMI > 25 kg/m2 Swollen legs Varicose veins or History of unexplained or recurrent spontaneous Oral contraceptives or hormone replacement Sepsis (< 1 month) Serious lung disease, including pneumonia (< 1 month) Abnormal pulmonary function Acute myocardial infarction Congestive heart failure (< 1 month) History of inflammatory bowel disease Medical patient at bed rest Age 61-74 Arthroscopic surgery Major open surgery (> 45 min) Laparoscopic surgery (> 45 min) Malignancy Confined to bed (> 72 hours) Immobilizing plaster cast Central venous access Age >= 75 History of VTE Family history of VTE Factor V Leiden Prothrombin [id number] Lupus anticoagulant Anticardiolipin antibodies Elevated serum homocysteine Heparin-induced thrombocytopenia Other congenital or acquired thrombophilia Stroke (< 1 month) Elective arthroplasty Hip, pelvis, or leg fracture Acute spinal cord injury (< 1 month) Prophylaxis Regimen: Total Risk Factor Score Risk Level Prophylaxis Regimen 0-1 Low Early ambulation 2 Moderate Order ONE of the following: *Sequential Compression Device (SCD) *Heparin 5000 units SQ BID 3-4 Higher Order ONE of the following medications: *Heparin 5000 units SQ TID *Enoxaparin/Lovenox 40 mg SQ daily (WT < 150 kg, CrCl > 30 mL/min) *Enoxaparin/Lovenox 30 mg SQ daily (WT < 150 kg, CrCl > 10-29 mL/min) *Enoxaparin/Lovenox 30 mg SQ BID (WT < 150 kg, CrCl > 30 mL/min) AND/OR *Sequential Compression Device (SCD) 5 or more Highest Order ONE of the following medications: *Heparin 5000 units SQ TID (Preferred with Epidurals) *Enoxaparin/Lovenox 40 mg SQ daily (WT < 150 kg, CrCl > 30 mL/min) *Enoxaparin/Lovenox 30 mg SQ daily (WT < 150 kg, CrCl > 10-29 mL/min) *Enoxaparin/Lovenox 30 mg SQ BID (WT < 150 kg, CrCl > 30 mL/min) AND *Sequential Compression Device (SCD) Assessment and Plan - Assessment (1) Cholecystitis Code(s): K81.9 - Cholecystitis, unspecified Status: Acute Plan: CT and u/s reviewed. Exam c/w cholecystis. Abx and pain rx given. Gen surgery contacted by ER provider and wants pt NPO with GI consult VSS (2) COPD (chronic obstructive pulmonary disease) Code(s): J44.9 - Chronic obstructive pulmonary disease, unspecified Status: Acute Plan: duoneb, O2 supplement prn (3) CAD (coronary artery disease) Code(s): I25.10 - Atherosclerotic heart disease of [place] coronary artery without angina pectoris Status: Acute Plan: stent placed in RCA 03/2018. Current CP atypical and unlike her prior anginal pain. Continue rx. (4) Chest pain Code(s): R07.9 - Chest pain, unspecified Status: Acute Plan: as above. Trop neg and EKG with no acute injury pattern - Plan Code Status: full Discussed Condition With: Pt, her and ER physician
[2018-06-04] MEDS ORDERED: Ketorolac Inj 30 MG/ML (IVP) Vial IV.PUSH ONE (00:11)
[2018-06-04] MEDS: Morphine Inj 4 MG/ML Vial IV.PUSH PRN ×2 (04:15→08:31)
[2018-06-04] MEDS ORDERED: Chlorhexidine Gluconate 2% 1 Pack (2 Cloths) TOPICAL ONE (04:35)
[2018-06-04] MEDS ORDERED: Sodium Chlor 0.9% Inj 500 ML IV.SIG SCH (05:00)
[2018-06-04 06:15] LABS: Activated Partial Thrombo Time 27.8 sec (24.3-30.1); Prothrombin Time 10.4 sec (9.8-11.6)
[2018-06-04] MEDS ORDERED: Gadobutrol PF 7.5 MMOL/7.5 ML Vial (for RAD) IV.SIG ONE (09:16)
--- NOTE | 2018-06-04 09:47 | MR ---
EXAM DATE: 06/04/2018 8:27 AM EDT AGE/SEX: 53 years / Female INDICATIONS: Abdominal pain. Dilated CBD. CLINICAL DATA: This is the patient's subsequent encounter. Patient reports that signs and symptoms h ave been present for 3 days and indicates a pain score of 5/10. MEDICAL/SURGICAL HISTORY: Rheumatoid arthritis. Cardiovascular disease. Chronic obstructive p ulmonary disease. Hysterectomy. Coronary artery stent. [place] [facility] [place] [facility] [place], . . TECHNIQUE: Multisequence, multiplanar MRI examination was performed without contrast and after the in travenous administration of 7.5 ml Gadavist (gadobutrol) contrast as a single exam dose. FINDINGS: There is a tiny cyst in the left kidney measuring 5.5 mm at the upper pole. Liver: There is a tiny cyst in the left hepatic lobe measuring 5.8 mm. There is also a cyst identifi ed directly anterior to the IVC measuring 1.5 cm and in the right lobe posteriorly measuring 5.4 mm. Additional scattered tiny cysts are noted. Hepatic steatosis. Intrahepatic Bile Ducts: There is no intrahepatic biliary ductal dilatation. Common Bile Duct: The common bile duct is 8.4 mm in caliber No filling defects or obstructing lesio ns are identified. It tapers as it approaches the ampulla. Gallbladder: There is cholelithiasis. Pericholecystic fluid and mild wall thickening is present. Pancreas: The pancreas appears normal in signal with no focal parenchymal abnormalities. The pancrea tic duct is normal in caliber with no filling defects, or obstructing lesions identified. CONCLUSION: 1. Abnormal gallbladder again noted with pericholecystic fluid, mild wall thickening and cholelithia sis. 2. There is mild dilatation of the common bile duct. No evidence for choledocholithiasis. 3. Scattered hepatic cysts. 4. There is consolidation at both lung bases. 5. Hepatic steatosis. Electronically signed by: Angel Machado MD 06/04/2018 9:45 AM EDT
--- NOTE | 2018-06-04 10:32 | P.PNIM ---
Subjective Interval history: Pt reports that she is still having abdominal pain but it is not as severe as yesterday She just returned from [facility] Afebrile Denies any N/V She is concerned about not having received her Cardiac meds yet this morning as she just had a stent placed in March 2018 Physical Exam Vital signs: Vital Signs 06/03/18 18:31 06/03/18 19:18 06/03/18 19:19 Temperature 98.9 F Pulse Rate 84 Respiratory Rate 17 Blood Pressure 171/80 H Pulse Oximetry 100 98 98 06/03/18 20:54 06/03/18 23:49 06/04/18 02:00 Temperature Pulse Rate 83 74 82 Respiratory Rate 16 16 16 Blood Pressure 171/80 H 157/70 H Pulse Oximetry 98 98 06/04/18 03:20 06/04/18 03:57 06/04/18 05:06 Temperature 98.0 F Pulse Rate 61 60 57 L Respiratory Rate 17 18 Blood Pressure 171/81 H Pulse Oximetry 97 06/04/18 08:00 Temperature 97.9 F Pulse Rate 62 Respiratory Rate 16 Blood Pressure 137/77 Pulse Oximetry 95 Intake & Output 06/03/18 06/04/18 06/04/18 18:59 06:59 18:59 Intake Total 300 / 300 Balance 300 / 300 Weight 72.575 kg 89 kg Intake: IV 300 / 300 Cipro 400 MG/200 ML Inj 400 mg 200 / 200 In 200 ml @ 200 mls/hr IV.SIG ONCE ONE Rx#:[id number] Flagyl 500 MG Inj 100 ML @ 100 100 / 100 mls/hr IV.SIG ONCE ONE Rx#: [id number] Oral 0 / 0 Other: # Voids 2 Date of Last Bowel Movement 06/03/18 Weight On Admission 72.575 kg Narrative: GENERAL: NAD, AAOx3 CARDIO: Regular rate and rhythm. no murmur RESP: Clear to auscultation bilaterally. ABD: +BS, soft, nondistended. TTP RUQ with +Leblanc's sign; EXT: No edema. No obvious deformities. Results - Labs CBC & Chem 7: 06/03/18 18:50 06/03/18 18:50 Laboratory Results - last 24 hr 06/03/18 06/03/18 06/03/18 18:50 18:50 18:50 WBC 9.0 RBC 4.35 Hgb 12.2 Hct 36.5 MCV 83.9 MCH 28.1 MCHC 33.5 RDW 18.2 H Plt Count 372 MPV 7.7 Neut % (Auto) 63.1 Lymph % (Auto) 26.8 [place] % (Auto) 5.4 Eos % (Auto) 3.5 Baso % (Auto) 1.2 Neut # (Auto) 5.7 Lymph # (Auto) 2.4 [place] # (Auto) 0.5 Eos # (Auto) 0.3 Baso # (Auto) 0.1 WBC Differential . Differential Comment Auto diff final PT INR APTT Sodium 139 Potassium 3.9 Chloride 108 H Carbon Dioxide 19.9 L Anion Gap 11 BUN 17 Creatinine 1.21 H Estimated GFR 47 L Random Glucose 99 Calcium 8.7 Total Bilirubin 0.4 AST 137 H ALT 88 H Alkaline Phosphatase 120 H Troponin I Less than 0.02 L Total Protein 7.3 Albumin 3.4 Lipase 78 Urine Color Urine Clarity Urine pH Ur Specific [place] Urine Protein Urine Glucose (UA) Urine Ketones Urine Occult Blood Urine Nitrate Urine Bilirubin Urine Urobilinogen Ur Leukocyte Esterase Urine RBC Urine WBC Ur Squamous Epith Cells Urine Bacteria Micro UA Comment Ur Microscopic Review Urine Culture Comments 06/03/18 06/03/18 06/04/18 21:25 23:00 05:38 WBC RBC Hgb Hct MCV MCH MCHC RDW Plt Count MPV Neut % (Auto) Lymph % (Auto) [place] % (Auto) Eos % (Auto) Baso % (Auto) Neut # (Auto) Lymph # (Auto) [place] # (Auto) Eos # (Auto) Baso # (Auto) WBC Differential Differential Comment PT 10.4 INR 1.0 APTT 27.8 Sodium Potassium Chloride Carbon Dioxide Anion Gap BUN Creatinine Estimated GFR Random Glucose Calcium Total Bilirubin AST ALT Alkaline Phosphatase Troponin I Less than 0.02 L Total Protein Albumin Lipase Urine Color Yellow Urine Clarity Hazy H Urine pH 6.0 Ur Specific [place] 1.056 H Urine Protein Negative Urine Glucose (UA) Negative Urine Ketones Negative Urine Occult Blood Negative Urine Nitrate Negative Urine Bilirubin Negative Urine Urobilinogen 2.0 H Ur Leukocyte Esterase Moderate H Urine RBC 2 Urine WBC 11 H Ur Squamous Epith Cells 2 Urine Bacteria Rare H Micro UA Comment Culture indicated Ur Microscopic Review Not Reportable Urine Culture Comments Culture indicated - Imaging Impressions Chest X-Ray 06/03/18 18:40 CONCLUSION: Small left effusion with mild basilar opacity stable to slightly improved from March 23. Abdomen/Pelvis CT 06/03/18 18:50 CONCLUSION: 1. Dilatation the common bile duct. The cause is not clearly seen. 2. Increased density at the bases being more prominent on the right with a minimal right pleural effusion. 3. Scattered colonic diverticula. 4. 0.9 cm hypodensity in the left lobe of the liver adjacent to gallbladder fossa. This is nonspecific. Statistically, this most likely represent a cyst or hemangioma. 5. 0.6 cm hypodense mass in the posterior aspect of the left mid kidney likely related to a cyst. 6. Nonspecific 0.4 cm hypodensity within the central to the spleen. The most common mass at this appearance would be a hemangioma. Gallbladder Ultrasound 06/03/18 21:36 CONCLUSION: Cholelithiasis with focal gallbladder wall thickening and pericholecystic fluid. Cholecystitis is not excluded. In addition there is dilatation of the common duct to 10 mm. MRCP could be performed for further evaluation if clinically indicated. Assessment and Plan - Assessment (1) Cholecystitis Code(s): K81.9 - Cholecystitis, unspecified Status: Acute Plan: Cholecystitis Elevated LFTs RUQ abdominal pain - Pt is a 53 y/o female with CAD s/p recent stenting in Mar 2018, COPD, and HTN - She presented to the ED at [facility] [place]/03/[place] for evaluation of sudden onset epigastric pain that began at about 445 that afternoon. - Abdomen/Pelvis CT (06/03/18) 1. Dilatation the common bile duct. The cause is not clearly seen. 2. Increased density at the bases being more prominent on the right with a minimal right pleural effusion. 3. Scattered colonic diverticula. 4. 0.9 cm hypodensity in the left lobe of the liver adjacent to gallbladder fossa. This is nonspecific. Statistically, this most likely represent a cyst or hemangioma. 5. 0.6 cm hypodense mass in the posterior aspect of the left mid kidney likely related to a cyst. 6. Nonspecific 0.4 cm hypodensity within the central to the spleen. The most common mass at this appearance would be a hemangioma. - Gallbladder Ultrasound (06/03/18): -Cholelithiasis with focal gallbladder wall thickening and pericholecystic fluid. Cholecystitis is not excluded. In addition there is dilatation of the common duct to 10 mm. MRCP could be performed for further evaluation if clinically indicated. - Pt received Cipro and Flagyl IV overnight - MRCP is pending - GI has been consulted - General Surgery has been consulted - Pt is currently NPO CAD - Pt had CLINT placed in RCA on 03/26/[address] Mckeon - She is on Plavix and ASA as an outpt, cont ASA for now. Await recommendations from GS and GI before resuming Plavix today - Cont. BB - Cont. statin COPD - Cont. home meds - Duonebs PRN The exam, history, and the medical decision-making described in the above note were completed with the assistance of the mid-level provider. I reviewed and agree with the findings presented. I attest that I had a [id number] encounter with the patient on the same day, and personally performed and documented my assessment and findings in the medical record. discussed with GI and gen surg dr Cummings. dc home. no ercp. dc on abx. diet discussed. f/u office. no surgery now as pt with recent clint and on asa/plavix. (2) COPD (chronic obstructive pulmonary disease) Code(s): J44.9 - Chronic obstructive pulmonary disease, unspecified Status: Acute (3) CAD (coronary artery disease) Code(s): I25.10 - Atherosclerotic heart disease of [place] coronary artery without angina pectoris Status: Acute
[2018-06-04] MEDS ORDERED: Ciprofloxacin 400 MG/200 ML 400 MG/200 ML PIGGYBACK IV.SIG SCH (12:00)
[2018-06-04] MEDS ORDERED: buPROPion 150 MG 12 HR Tablet PO SCH (12:00)
--- NOTE | 2018-06-04 12:24 | P.CONGI ---
History of Present Illness Consult date: 06/04/18 Consult reason: Cholelithiasis Chief complaint: Acute Cholecystitis History of Present Illness: This is an obese 53-year-old female who came into the hospital to be evaluated for uncontrolled right upper quadrant pain that radiated back around into her back on 06/03/2018. Patient notes the pain was acute onset mid to late afternoon which was aggravated by lying, sitting, standing pain and deep breathing, scale 10 out of 10. Patient denied any vomiting but did note nausea secondary to the pain. She also denies any dyspepsia or dysphasia and no diarrhea or constipation. Current labs show hemoglobin 12.2, WBC count 9, PT/ INR 1, normal bilirubin at 0.4, elevated ALT AST 137 and ALT 88, alkaline phosphatase 120, lipase 78. Patient's currently on Plavix for the last 2 months and has been treated per Dr. Mckeon with 2 cardiac stents and notes that she is not to be without her Plavix. Ultrasound of the gallbladder did show cholelithiasis and bladder wall thickening in which MRCP was recommended. CT of the abdomen also showed dilated common bile duct colonic diverticula and 0.9 cm hypodensity in the left liver. Patient does note EGD colonoscopy with Dr. Chacko this year which showed internal hemorrhoids and diverticulosis. MRCP was performed this a.m. which showed mild common bile duct dilatation but no choledocholithiasis, gallbladder wall thickening and cholelithiasis. General surgery consult is pending. Gastroenterology has been called in to assist with cholelithiasis symptom management and plan of care. <Katty Maldonado - Last Filed: 06/04/18 12:12> Review of Systems All other systems reviewed negative except as stated in HPI <Katty Maldonado - Last Filed: 06/04/18 12:12> PMFSH - History History Provided By: Patient - Medical History Medical History: Medical History (Last Reviewed 06/03/18 @ 23:45 by JERROD Pruitt) Asthma History of hysterectomy - Family History Family History: Family History (Last Reviewed 06/03/18 @ 23:45 by JERROD Pruitt) Other No history of heart disease - Tobacco History Second Hand Smoke Exposure: Yes Tobacco Use In Past 30 Days: No Smoking Status: Current every day smoker Tobacco Type: Cigarettes - Alcohol History How Often Do You Have a Drink Containing Alcohol: 4 or more times a week - Substance Use History Substance History: No History of Abuse - Travel History Recent Travel in the [place] Within the Last 8 Weeks: No Recent Travel Out of the Country Within the Last 8 Weeks: No - Immunization History Tetanus Immunization: <5 Years Hx Influenza Vaccine This Season: No <ReynoldsRylieKatty M - Last Filed: 06/04/18 12:12> - Medical History Medical History: Medical History (Last Reviewed 06/03/18 @ 23:45 by JERROD Pruitt) Asthma History of hysterectomy - Family History Family History: Family History (Last Reviewed 06/03/18 @ 23:45 by JERROD Pruitt) Other No history of heart disease <Lisa Chacko - Last Filed: 06/04/18 19:04> Medications and Allergies Active Medications: Active Medications Albuterol (Duoneb Neb (Prn)) 1 ampul NEB Q4HR NEB PRN PRN Reason: wheeze, sob Last Admin: 06/04/18 03:54 Dose: 1 ampul Aspirin (Ecotrin) 81 mg PO DAILY NIDA Atorvastatin Calcium (Lipitor) 40 mg PO HS NIDA Bupropion HCl (Wellbutrin Sr) 150 mg PO BID NIDA Clopidogrel Bisulfate (Plavix) 75 mg PO DAILY NIDA Sodium Chloride (Ns Inj) 500 mls @ 30 mls/hr IV.SIG .Q10H NIDA Lactated Ringer's (Lr 1000 Ml Inj) 1,000 mls @ 30 mls/hr IV.SIG .Q24H NIDA Stop: 06/05/18 04:44 Ciprofloxacin/Dextrose (Cipro 400 Mg/200 Ml Inj) 400 mg in 200 mls @ 200 mls/ hr IV.SIG Q12H NIDA Metronidazole/Sodium Chloride (Flagyl 500 Mg Inj) 100 mls @ 100 mls/hr IV.SIG Q8H NIDA Leflunomide (Arava) 20 mg PO DAILY NIDA Metoprolol Succinate (Toprol Xl) 25 mg PO DAILY NIDA Morphine Sulfate (Morphine Inj) 4 mg IV.PUSH Q3H PRN PRN Reason: pain level 3-10 Last Admin: 06/04/18 08:31 Dose: 4 mg Pantoprazole Sodium (Protonix) 40 mg PO DAILY [facility] Pt Own Med ( Mometasone- Formoterol [Dulera] 2 Puff) 0 each INH BID NIDA Sodium Chloride (Ns Flush) 2 ml IV.FLUSH UNSCH PRN PRN Reason: FLUSH AFTER USING IV ACCESS Last Admin: 06/03/18 19:10 Dose: 2 ml <Katty Maldonado - Last Filed: 06/04/18 12:12> <MonegayleLisa - Last Filed: 06/04/18 19:04> Allergies Allergy/AdvReac Type Severity Reaction Status Date / Time cat dander Allergy Severe Shortness Verified 03/23/18 21:44 of Breath tree and shrub pollen Allergy Severe Shortness Verified 03/23/18 21:44 of Breath *MDRO Multi-Drug Resistant AdvReac Unknown Itching Uncoded 03/23/18 21:44 Organism Home Medications Medication Instructions Recorded Confirmed Type albuterol sulfate [Ventolin HFA] 90 mcg INHALATION Q4-6H 03/24/18 06/03/18 History leflunomide 20 mg PO DAILY 03/24/18 06/03/18 History metoprolol succinate [Toprol XL] 25 mg PO DAILY 06/03/18 06/03/18 History bupropion HCl (smoking deter) 150 mg PO BID 06/04/18 06/04/18 History mometasone-formoterol [Dulera] 2 puff INHALATION BID 06/04/18 06/04/18 History Exam Vital signs: Vital Signs 06/03/18 18:31 06/03/18 19:18 06/03/18 19:19 Temperature 98.9 F Pulse Rate 84 Respiratory Rate 17 Blood Pressure 171/80 H Pulse Oximetry 100 98 98 06/03/18 20:54 06/03/18 23:49 06/04/18 02:00 Temperature Pulse Rate 83 74 82 Respiratory Rate 16 16 16 Blood Pressure 171/80 H 157/70 H Pulse Oximetry 98 98 06/04/18 03:20 06/04/18 03:57 06/04/18 05:06 Temperature 98.0 F Pulse Rate 61 60 57 L Respiratory Rate 17 18 Blood Pressure 171/81 H Pulse Oximetry 97 06/04/18 08:00 Temperature 97.9 F Pulse Rate 62 Respiratory Rate 16 Blood Pressure 137/77 Pulse Oximetry 95 Intake & Output 06/03/18 06/04/18 06/04/18 18:59 06:59 18:59 Intake Total 300 / 300 Balance 300 / 300 Weight 72.575 kg 89 kg Intake: IV 300 / 300 Cipro 400 MG/200 ML Inj 400 mg 200 / 200 In 200 ml @ 200 mls/hr IV.SIG ONCE ONE Rx#:[id number] Flagyl 500 MG Inj 100 ML @ 100 100 / 100 mls/hr IV.SIG ONCE ONE Rx#: [id number] Oral 0 / 0 Other: # Voids 2 Date of Last Bowel Movement 06/03/18 Weight On Admission 72.575 kg - Constitutional mild distress, obese, disheveled, agitated (Mild secondary to not eating) - Routine HEENT Exam Head: Present: normocephalic ENT: Present: mucous membranes moist - Routine Neck Exam Present: supple - Routine Respiratory Exam Present: accessory muscle use (No obvious shortness of breath) - Routine Cardiovascular Exam Present: S1, S2 - Routine Abdominal Exam Present: soft, normoactive bowel sounds, tenderness (Right upper quadrant without radiation at this time and states pain more of a soreness male) - Routine Skin Exam Present: intact - Routine Neurological Exam Present: alert, oriented X3 <Reynolds,Katty M - Last Filed: 06/04/18 12:12> Vital signs: Vital Signs 06/03/18 19:18 06/03/18 19:19 06/03/18 20:54 Temperature Pulse Rate 83 Respiratory Rate 16 Blood Pressure Pulse Oximetry 98 98 06/03/18 23:49 06/04/18 02:00 06/04/18 03:20 Temperature 98.0 F Pulse Rate 74 82 61 Respiratory Rate 16 16 17 Blood Pressure 171/80 H 157/70 H 171/81 H Pulse Oximetry 98 98 97 06/04/18 03:57 06/04/18 05:06 06/04/18 08:00 Temperature 97.9 F Pulse Rate 60 57 L 62 Respiratory Rate 18 16 Blood Pressure 137/77 Pulse Oximetry 95 06/04/18 09:00 06/04/18 12:00 06/04/18 16:00 Temperature 97.8 F 97.8 F Pulse Rate 59 L 84 52 L Respiratory Rate 16 16 Blood Pressure 157/72 H 170/88 H Pulse Oximetry 95 95 Intake & Output 06/04/18 06/04/18 06/05/18 06:59 18:59 06:59 Intake Total 300 / 300 Balance 300 / 300 Weight 89 kg Intake: IV 300 / 300 Cipro 400 MG/200 ML Inj 400 mg 200 / 200 In 200 ml @ 200 mls/hr IV.SIG ONCE ONE Rx#:[id number] Flagyl 500 MG Inj 100 ML @ 100 100 / 100 mls/hr IV.SIG ONCE ONE Rx#: [id number] Oral 0 / 0 Other: # Voids 2 Date of Last Bowel Movement 06/03/18 06/03/18 Weight On Admission 72.575 kg <Lisa Chacko - Last Filed: 06/04/18 19:04> Results - Labs CBC & Chem 7: 06/03/18 18:50 06/03/18 18:50 Labs: Laboratory Results - last 24 hr 06/03/18 06/03/18 06/03/18 18:50 18:50 18:50 WBC 9.0 RBC 4.35 Hgb 12.2 Hct 36.5 MCV 83.9 MCH 28.1 MCHC 33.5 RDW 18.2 H Plt Count 372 MPV 7.7 Neut % (Auto) 63.1 Lymph % (Auto) 26.8 [place] % (Auto) 5.4 Eos % (Auto) 3.5 Baso % (Auto) 1.2 Neut # (Auto) 5.7 Lymph # (Auto) 2.4 [place] # (Auto) 0.5 Eos # (Auto) 0.3 Baso # (Auto) 0.1 WBC Differential . Differential Comment Auto diff final PT INR APTT Sodium 139 Potassium 3.9 Chloride 108 H Carbon Dioxide 19.9 L Anion Gap 11 BUN 17 Creatinine 1.21 H Estimated GFR 47 L Random Glucose 99 Calcium 8.7 Total Bilirubin 0.4 AST 137 H ALT 88 H Alkaline Phosphatase 120 H Troponin I Less than 0.02 L Total Protein 7.3 Albumin 3.4 Lipase 78 Urine Color Urine Clarity Urine pH Ur Specific [place] Urine Protein Urine Glucose (UA) Urine Ketones Urine Occult Blood Urine Nitrate Urine Bilirubin Urine Urobilinogen Ur Leukocyte Esterase Urine RBC Urine WBC Ur Squamous Epith Cells Urine Bacteria Micro UA Comment Ur Microscopic Review Urine Culture Comments 06/03/18 06/03/18 06/04/18 21:25 23:00 05:38 WBC RBC Hgb Hct MCV MCH MCHC RDW Plt Count MPV Neut % (Auto) Lymph % (Auto) [place] % (Auto) Eos % (Auto) Baso % (Auto) Neut # (Auto) Lymph # (Auto) [place] # (Auto) Eos # (Auto) Baso # (Auto) WBC Differential Differential Comment PT 10.4 INR 1.0 APTT 27.8 Sodium Potassium Chloride Carbon Dioxide Anion Gap BUN Creatinine Estimated GFR Random Glucose Calcium Total Bilirubin AST ALT Alkaline Phosphatase Troponin I Less than 0.02 L Total Protein Albumin Lipase Urine Color Yellow Urine Clarity Hazy H Urine pH 6.0 Ur Specific [place] 1.056 H Urine Protein Negative Urine Glucose (UA) Negative Urine Ketones Negative Urine Occult Blood Negative Urine Nitrate Negative Urine Bilirubin Negative Urine Urobilinogen 2.0 H Ur Leukocyte Esterase Moderate H Urine RBC 2 Urine WBC 11 H Ur Squamous Epith Cells 2 Urine Bacteria Rare H Micro UA Comment Culture indicated Ur Microscopic Review Not Reportable Urine Culture Comments Culture indicated - Imaging Impressions Chest X-Ray 06/03/18 18:40 CONCLUSION: Small left effusion with mild basilar opacity stable to slightly improved from March 23. Abdomen/Pelvis CT 06/03/18 18:50 CONCLUSION: 1. Dilatation the common bile duct. The cause is not clearly seen. 2. Increased density at the bases being more prominent on the right with a minimal right pleural effusion. 3. Scattered colonic diverticula. 4. 0.9 cm hypodensity in the left lobe of the liver adjacent to gallbladder fossa. This is nonspecific. Statistically, this most likely represent a cyst or hemangioma. 5. 0.6 cm hypodense mass in the posterior aspect of the left mid kidney likely related to a cyst. 6. Nonspecific 0.4 cm hypodensity within the central to the spleen. The most common mass at this appearance would be a hemangioma. Gallbladder Ultrasound 06/03/18 21:36 CONCLUSION: Cholelithiasis with focal gallbladder wall thickening and pericholecystic fluid. Cholecystitis is not excluded. In addition there is dilatation of the common duct to 10 mm. MRCP could be performed for further evaluation if clinically indicated. Cholangiopancreatography MRI 06/04/18 00:00 CONCLUSION: 1. Abnormal gallbladder again noted with pericholecystic fluid, mild wall thickening and cholelithiasis. 2. There is mild dilatation of the common bile duct. No evidence for choledocholithiasis. 3. Scattered hepatic cysts. 4. There is consolidation at both lung bases. 5. Hepatic steatosis. <Katty Maldonado - Last Filed: 06/04/18 12:12> - Labs CBC & Chem 7: 06/03/18 18:50 06/03/18 18:50 Labs: Laboratory Results - last 24 hr 06/03/18 06/03/18 06/03/18 18:50 18:50 18:50 WBC 9.0 RBC 4.35 Hgb 12.2 Hct 36.5 MCV 83.9 MCH 28.1 MCHC 33.5 RDW 18.2 H Plt Count 372 MPV 7.7 Neut % (Auto) 63.1 Lymph % (Auto) 26.8 [place] % (Auto) 5.4 Eos % (Auto) 3.5 Baso % (Auto) 1.2 Neut # (Auto) 5.7 Lymph # (Auto) 2.4 [place] # (Auto) 0.5 Eos # (Auto) 0.3 Baso # (Auto) 0.1 WBC Differential . Differential Comment Auto diff final PT INR APTT Sodium 139 Potassium 3.9 Chloride 108 H Carbon Dioxide 19.9 L Anion Gap 11 BUN 17 Creatinine 1.21 H Estimated GFR 47 L Random Glucose 99 Calcium 8.7 Total Bilirubin 0.4 AST 137 H ALT 88 H Alkaline Phosphatase 120 H Troponin I Less than 0.02 L Total Protein 7.3 Albumin 3.4 Lipase 78 Urine Color Urine Clarity Urine pH Ur Specific [place] Urine Protein Urine Glucose (UA) Urine Ketones Urine Occult Blood Urine Nitrate Urine Bilirubin Urine Urobilinogen Ur Leukocyte Esterase Urine RBC Urine WBC Ur Squamous Epith Cells Urine Bacteria Micro UA Comment Ur Microscopic Review Urine Culture Comments 06/03/18 06/03/18 06/04/18 21:25 23:00 05:38 WBC RBC Hgb Hct MCV MCH MCHC RDW Plt Count MPV Neut % (Auto) Lymph % (Auto) [place] % (Auto) Eos % (Auto) Baso % (Auto) Neut # (Auto) Lymph # (Auto) [place] # (Auto) Eos # (Auto) Baso # (Auto) WBC Differential Differential Comment PT 10.4 INR 1.0 APTT 27.8 Sodium Potassium Chloride Carbon Dioxide Anion Gap BUN Creatinine Estimated GFR Random Glucose Calcium Total Bilirubin AST ALT Alkaline Phosphatase Troponin I Less than 0.02 L Total Protein Albumin Lipase Urine Color Yellow Urine Clarity Hazy H Urine pH 6.0 Ur Specific [place] 1.056 H Urine Protein Negative Urine Glucose (UA) Negative Urine Ketones Negative Urine Occult Blood Negative Urine Nitrate Negative Urine Bilirubin Negative Urine Urobilinogen 2.0 H Ur Leukocyte Esterase Moderate H Urine RBC 2 Urine WBC 11 H Ur Squamous Epith Cells 2 Urine Bacteria Rare H Micro UA Comment Culture indicated Ur Microscopic Review Not Reportable Urine Culture Comments Culture indicated - Imaging Impressions Chest X-Ray 06/03/18 18:40 CONCLUSION: Small left effusion with mild basilar opacity stable to slightly improved from March 23. Abdomen/Pelvis CT 06/03/18 18:50 CONCLUSION: 1. Dilatation the common bile duct. The cause is not clearly seen. 2. Increased density at the bases being more prominent on the right with a minimal right pleural effusion. 3. Scattered colonic diverticula. 4. 0.9 cm hypodensity in the left lobe of the liver adjacent to gallbladder fossa. This is nonspecific. Statistically, this most likely represent a cyst or hemangioma. 5. 0.6 cm hypodense mass in the posterior aspect of the left mid kidney likely related to a cyst. 6. Nonspecific 0.4 cm hypodensity within the central to the spleen. The most common mass at this appearance would be a hemangioma. Gallbladder Ultrasound 06/03/18 21:36 CONCLUSION: Cholelithiasis with focal gallbladder wall thickening and pericholecystic fluid. Cholecystitis is not excluded. In addition there is dilatation of the common duct to 10 mm. MRCP could be performed for further evaluation if clinically indicated. Cholangiopancreatography MRI 06/04/18 00:00 CONCLUSION: 1. Abnormal gallbladder again noted with pericholecystic fluid, mild wall thickening and cholelithiasis. 2. There is mild dilatation of the common bile duct. No evidence for choledocholithiasis. 3. Scattered hepatic cysts. 4. There is consolidation at both lung bases. 5. Hepatic steatosis. <Lisa Chacko - Last Filed: 06/04/18 19:04> Assessment and Plan - Plan obese 53-year-old female who came into the hospital to be evaluated for uncontrolled right upper quadrant pain that radiated back around into her back on 06/03/2018. Patient notes the pain was acute onset mid to late afternoon which was aggravated by lying, sitting, standing pain and deep breathing, scale 10 out of 10. Patient denied any vomiting but did note nausea secondary to the pain. She also denies any dyspepsia or dysphasia and no diarrhea or constipation. Current labs show hemoglobin 12.2, WBC count 9, PT/INR 1, normal bilirubin at 0.4, elevated ALT AST 137 and ALT 88, alkaline phosphatase 120, lipase 78. Patient's currently on Plavix for the last 2 months and has been treated per Dr. Mckeon with 2 cardiac stents and notes that she is not to be without her Plavix. Ultrasound of the gallbladder did show cholelithiasis and bladder wall thickening in which MRCP was recommended. CT of the abdomen also showed dilated common bile duct colonic diverticula and 0.9 cm hypodensity in the left liver. Patient does note EGD colonoscopy with Dr. Chacko this year which showed internal hemorrhoids and diverticulosis. MRCP was performed this a.m. which showed mild common bile duct dilatation but no choledocholithiasis, gallbladder wall thickening and cholelithiasis. General surgery consult is pending. Gastroenterology has been called in to assist with cholelithiasis symptom management and plan of care. Cholelithiasis, ultrasound ,CT scan and MRI concur that there is gallbladder wall thickening and cholelithiasis. Surgical consult is pending, but aggregating factor is patient's recent cardiac stents and Plavix with programmer developer Dr. Mckeon. If patient is set up for cholecystectomy surgery, we recommend considering intraoperative cholangiogram. Patient's right upper quadrant pain is much easier now and after pain medicine, could have passed a stone. Patient will also need cardiac clearance. Transaminitis mild, also noted per CT scan to have fatty liver disease. Recent EGD colonoscopy with Dr. Chacko and can be followed in the office for any further outpatient testing needed History of coronary artery disease with stents x2 in March, Plan Diet currently n.p.o. until further recommendations are evaluated Bowel regimen as night needed Okay to continue Plavix from GI standpoint, consider cardiac clearance Monitor labs Pain meds per attending Further recommendations to follow Supportive care Patient was seen per myself and Dr. Chacko, note was written on her behalf <Katty Maldonado - Last Filed: 06/04/18 12:12> - Attending Attestation agree with above mrcp negative for cbd stone if surgery planned recommend introp cholangiogram <Lisa Chacko - Last Filed: 06/04/18 19:04>
--- NOTE | 2018-06-04 14:48 | P.PNGS ---
Subjective Patient reports: feels better, pain is less, tolerating liquids well, voiding w/ o difficulty, flatus, afebrile Interval history: The patient is a 53-year-old lady who was admitted yesterday with what appeared to be acute cholecystitis. Over the course of the evening and early today, she has become almost asymptomatic and states that she feels 100% better. She still has minor pain in the right upper quadrant but it is markedly diminished. She has been able to tolerate a full liquid diet without any problems. She is been fine with no nausea or vomiting and has continued to pass flatus. Overall she states she is very happy to go home if it is possible. Physical Exam Vital signs: Vital Signs 06/03/18 18:31 06/03/18 19:18 06/03/18 19:19 Temperature 98.9 F Pulse Rate 84 Respiratory Rate 17 Blood Pressure 171/80 H Pulse Oximetry 100 98 98 06/03/18 20:54 06/03/18 23:49 06/04/18 02:00 Temperature Pulse Rate 83 74 82 Respiratory Rate 16 16 16 Blood Pressure 171/80 H 157/70 H Pulse Oximetry 98 98 06/04/18 03:20 06/04/18 03:57 06/04/18 05:06 Temperature 98.0 F Pulse Rate 61 60 57 L Respiratory Rate 17 18 Blood Pressure 171/81 H Pulse Oximetry 97 06/04/18 08:00 06/04/18 12:00 Temperature 97.9 F 97.8 F Pulse Rate 62 60 Respiratory Rate 16 16 Blood Pressure 137/77 157/72 H Pulse Oximetry 95 95 Intake & Output 06/03/18 06/04/18 06/04/18 18:59 06:59 18:59 Intake Total 300 / 300 Balance 300 / 300 Weight 72.575 kg 89 kg Intake: IV 300 / 300 Cipro 400 MG/200 ML Inj 400 mg 200 / 200 In 200 ml @ 200 mls/hr IV.SIG ONCE ONE Rx#:[id number] Flagyl 500 MG Inj 100 ML @ 100 100 / 100 mls/hr IV.SIG ONCE ONE Rx#: [id number] Oral 0 / 0 Other: # Voids 2 Date of Last Bowel Movement 06/03/18 Weight On Admission 72.575 kg - Routine Abdominal Exam Present: soft, tenderness Comments: The patient has mild tenderness in the right upper quadrant to deep palpation. She has no guarding or rebound. The remainder of her abdominal exam is completely benign. Results - Labs 06/03/18 18:50 06/03/18 18:50 Laboratory Results - last 24 hr 06/03/18 06/03/18 06/03/18 18:50 18:50 18:50 WBC 9.0 RBC 4.35 Hgb 12.2 Hct 36.5 MCV 83.9 MCH 28.1 MCHC 33.5 RDW 18.2 H Plt Count 372 MPV 7.7 Neut % (Auto) 63.1 Lymph % (Auto) 26.8 [place] % (Auto) 5.4 Eos % (Auto) 3.5 Baso % (Auto) 1.2 Neut # (Auto) 5.7 Lymph # (Auto) 2.4 [place] # (Auto) 0.5 Eos # (Auto) 0.3 Baso # (Auto) 0.1 WBC Differential . Differential Comment Auto diff final PT INR APTT Sodium 139 Potassium 3.9 Chloride 108 H Carbon Dioxide 19.9 L Anion Gap 11 BUN 17 Creatinine 1.21 H Estimated GFR 47 L Random Glucose 99 Calcium 8.7 Total Bilirubin 0.4 AST 137 H ALT 88 H Alkaline Phosphatase 120 H Troponin I Less than 0.02 L Total Protein 7.3 Albumin 3.4 Lipase 78 Urine Color Urine Clarity Urine pH Ur Specific [place] Urine Protein Urine Glucose (UA) Urine Ketones Urine Occult Blood Urine Nitrate Urine Bilirubin Urine Urobilinogen Ur Leukocyte Esterase Urine RBC Urine WBC Ur Squamous Epith Cells Urine Bacteria Micro UA Comment Ur Microscopic Review Urine Culture Comments 06/03/18 06/03/18 06/04/18 21:25 23:00 05:38 WBC RBC Hgb Hct MCV MCH MCHC RDW Plt Count MPV Neut % (Auto) Lymph % (Auto) [place] % (Auto) Eos % (Auto) Baso % (Auto) Neut # (Auto) Lymph # (Auto) [place] # (Auto) Eos # (Auto) Baso # (Auto) WBC Differential Differential Comment PT 10.4 INR 1.0 APTT 27.8 Sodium Potassium Chloride Carbon Dioxide Anion Gap BUN Creatinine Estimated GFR Random Glucose Calcium Total Bilirubin AST ALT Alkaline Phosphatase Troponin I Less than 0.02 L Total Protein Albumin Lipase Urine Color Yellow Urine Clarity Hazy H Urine pH 6.0 Ur Specific [place] 1.056 H Urine Protein Negative Urine Glucose (UA) Negative Urine Ketones Negative Urine Occult Blood Negative Urine Nitrate Negative Urine Bilirubin Negative Urine Urobilinogen 2.0 H Ur Leukocyte Esterase Moderate H Urine RBC 2 Urine WBC 11 H Ur Squamous Epith Cells 2 Urine Bacteria Rare H Micro UA Comment Culture indicated Ur Microscopic Review Not Reportable Urine Culture Comments Culture indicated - Imaging Imaging: ITS Impressions Chest X-Ray 06/03/18 18:40 CONCLUSION: Small left effusion with mild basilar opacity stable to slightly improved from March 23. Abdomen/Pelvis CT 06/03/18 18:50 CONCLUSION: 1. Dilatation the common bile duct. The cause is not clearly seen. 2. Increased density at the bases being more prominent on the right with a minimal right pleural effusion. 3. Scattered colonic diverticula. 4. 0.9 cm hypodensity in the left lobe of the liver adjacent to gallbladder fossa. This is nonspecific. Statistically, this most likely represent a cyst or hemangioma. 5. 0.6 cm hypodense mass in the posterior aspect of the left mid kidney likely related to a cyst. 6. Nonspecific 0.4 cm hypodensity within the central to the spleen. The most common mass at this appearance would be a hemangioma. Gallbladder Ultrasound 06/03/18 21:36 CONCLUSION: Cholelithiasis with focal gallbladder wall thickening and pericholecystic fluid. Cholecystitis is not excluded. In addition there is dilatation of the common duct to 10 mm. MRCP could be performed for further evaluation if clinically indicated. Cholangiopancreatography MRI 06/04/18 00:00 CONCLUSION: 1. Abnormal gallbladder again noted with pericholecystic fluid, mild wall thickening and cholelithiasis. 2. There is mild dilatation of the common bile duct. No evidence for choledocholithiasis. 3. Scattered hepatic cysts. 4. There is consolidation at both lung bases. 5. Hepatic steatosis. Assessment and Plan - Assessment (1) Cholecystitis Code(s): K81.9 - Cholecystitis, unspecified Status: Acute Plan: The patient has had resolution of her symptoms, and although she has had acute cholecystitis during this current episode, I believe it is reasonable to discharge her on antibiotics for the next 10 days total. In view of the fact that she had coronary stents placed 2 months ago, she will require Plavix for the near future and I would like to proceed with laparoscopic cholecystectomy after she is been on Plavix for at least 6 months. I had a full discussion with the patient regarding this situation and plan to see her back in 2-3 weeks in my office. I have asked her to call the office should she have any exacerbation of her symptoms. I have also counseled her extensively on remaining on a low-fat diet.
--- NOTE | 2018-06-04 18:32 | ECG ---
Date Performed: 06/03/2018 Time Performed: 18:27:28 PTAGE: 53 years EKG: Sinus rhythm WITH OCCASIONAL SUPRAVENTRICULAR PREMATURE COMPLEXES MINIMAL ST DEPRESSION BORDERLINE ECG PREVIOUS TRACING : 03/26/2018 17.34 Since the previous tracing, no significant change noted DOCTOR: Pipe Atkinson Interpretating Date/Time 06/04/2018 18:31:39
[2018-06-04] MEDS ORDERED: MOMETASONE FORMOTEROL INH SCH (21:00)
== END 2018-06-04 17:14 | disposition home or self-care (01) ==
LOC: NEPE 18:21 → NEDA 23:49 → N06 06-04 03:19
PROVIDERS: ADMIT Hospitalist; ATTEND Hospitalist